=== PATIENT | male | born 1965 | race Caucasian/White ===

== ENCOUNTER 2023-02-20 14:36 | Outpatient (OUT) | payer OTHER, SELFPAY ==
--- NOTE | 2023-02-20 14:43 | XR_ITS ---
[address] [address] Patient Name: DONNY PYLE MRN: [id number] date: 1965 Sex: M Assigned Patient Location: RAD Current Patient Location: [facility] Accession/Order Number: [id number] Exam Date: 02/20/2023 14:50 Report Date: 02/20/2023 17:54 At the request of: ANIKET SANTIAGO Procedure: XR shoulder LT min 2V PROCEDURE: XR shoulder LT min 2V COMPARISON: None. HISTORY: Pain in left shoulder M25.512 FINDINGS: BONES:No acute fracture or dislocation. Minimal proliferative joint osteoarthropathy. The glenohumeral joint is intact SOFT TISSUES:Negative. No visible soft tissue swelling. EFFUSION:None visible. OTHER: Negative. IMPRESSION: Minimal acromioclavicular joint osteoarthritis Electronically authenticated by: BIJAN MEDINA Date: 02/20/2023 17:54
== END 2023-02-20 14:37 ==
LOC: RAD 14:39
PROVIDERS: Family Provider Family Medicine; PCP Nurse Practitioner Family; Visit Provider Nurse Practitioner Family
DX: M19.012 Primary osteoarthritis, left shoulder (principal); M25.512 Pain in left shoulder
CPT/HCPCS: 73030

== ENCOUNTER 2023-03-13 15:15 | Outpatient (RCR) | payer OTHER, SELFPAY | END 2023-04-02 15:35 | disposition home or self-care (01) | LOC: PT 15:15 | PROVIDERS: Family Provider Family Medicine; PCP Nurse Practitioner Family; Visit Provider Nurse Practitioner Family | DX: M25.512 Pain in left shoulder (principal) | CPT/HCPCS: 97110; 97140; 97162 ==

== ENCOUNTER 2024-10-02 20:55 | Emergency (ER) | payer SELFPAY ==
[2024-10-02 20:58] VITALS: BP 173/95; PULSE 51; TEMP 36.6; O2SAT 98; BMI 61.1
--- NOTE | 2024-10-02 21:19 | ED_ITS ---
HPI HPI - General Adult General Chief complaint: Back Pain/Injury Stated complaint: Flank Pain Time Seen by Provider: 10/02/24 20:59 Source: patient Mode of arrival: walk-in Limitations: no limitations History of Present Illness HPI narrative: This 59-year-old male who does not have a history of kidney stones presents for evaluation of right low back pain that radiates into his right inguinal area. It started approximately 3 hours prior to arrival. He took some ibuprofen without significant improvement. He denies any chest pain or shortness of breath. He denies any dizziness. He is nauseated but has not vomited. He states he is urinating but very little is coming out. He denies any blood in his urine or dark-colored urine. Related Data Home Medications ?Medication ?Instructions ?Recorded ?Confirmed meloxicam 15 mg tablet mg 10/02/24 Allergies Allergy/AdvReac Type Severity Reaction Status Date / Time No Known Drug Allergies Allergy Verified 10/02/24 21:02 Opioid HPI Opioid Management Most Recent Opioid Data: Last ED Pain Assessment 10/02/24 21:13 Review of Systems ROS Status of ROS 10 or more systems reviewed and unremark able except as noted in history and below PFSH PFSH Social History Little interest or pleasure in doing things: not at all Feeling down, depressed, or hopeless: not at all Exam Narrative Exam Narrative: Vital signs and Nursing Notes reviewed: Patient is afebrile, he is bradycardic with a pulse of 51 and blood pressure is elevated at 173/95, he is not hypoxic with pulse ox of 98% on room air General: Awake, alert, oriented, uncomfortable appearing adult male, no respiratory distress, no active vomiting HEENT: Normocephalic atraumatic, mucous membranes are moist and pink, eyes are clear, normal conjunctiva, vision is grossly intact Chest: Lungs are clear to auscultation with good air entry, there is no wheezing rhonchi or rales appreciated no accessory muscle use, patient is speaking in complete sentences-no chest wall tenderness to palpation CVS: Regular rate and rhythm S1-S2, no murmurs rubs or gallops, pulses are brisk and equal bilaterally ABD: Soft, nondistended, tenderness in the distribution of the right ureter, there is no McBurney's tenderness, negative Lucas's sign, no rebound guarding or rigidity, bowel sounds are normal, no pulsatile masses appreciated Musc: Tenderness to the right lateral lumbar region, mild abdominal tenderness along the distribution of the right ureter Extremities: Moving all extremities, no lower extremity tenderness or swelling noted, negative Homans' sign, pulses are brisk and equal bilaterally Skin: Normal in appearance without rash,pallor, petechiae or purpura Neuro: No focal deficits Constitutional Vital Signs, click to edit/add: Last Vital Signs Temp 97.8 F 10/02/24 20:58 Pulse 55 L 10/02/24 23:08 Resp 16 10/02/24 23:08 BP 156/84 H 10/02/24 23:08 Pulse Ox 98 10/02/24 23:08 O2 Del Method Room Air 10/02/24 20:58 Course Vital Signs Vital signs: Vital Signs Temperature 97.8 F 10/02/24 20:58 Pulse Rate 51 L 10/02/24 20:58 Respiratory Rate 20 10/02/24 20:58 Blood Pressure 173/95 H 10/02/24 20:58 Pulse Oximetry 98 10/02/24 20:58 Oxygen Delivery Method Room Air 10/02/24 20:58 Temperature 97.8 F 10/02/24 20:58 Pulse Rate 55 L 10/02/24 23:08 Respiratory Rate 16 10/02/24 23:08 Blood Pressure 156/84 H 10/02/24 23:08 Pulse Oximetry 98 10/02/24 23:08 Oxygen Delivery Method Room Air 10/02/24 20:58 Medical Decision Making MDM Narrative Medical decision making narrative: This 59-year-old male is brought to the emergency department by his for evaluation of flank pain that started approximately 3 hours prior to arrival. It was associated with nausea but no vomiting. He states he has been having trouble urinating. He had not had any fever. Denies any chest pain or shortness of breath. He was tender in the right lower flank and along the distribution of the right ureter. An IV was placed and he was medicated with IV fluids, Zofran and Toradol with clinical improvement in his pain. He has a mildly elevated white count of 14. He has a stable hemoglobin. Electrolytes are normal with the exception of a mildly elevated creatinine at 1.59. Urine is negative for infection but positive for large blood. Noncontrast CT scan of the abdomen pelvis shows a 6 x 4 x 3 mm kidney stone in the left UVJ with mild hydronephrosis and perinephric stranding. Prior to being discharged he was medicated with a dose of oral Percocet but then called out complaining that his pain had become severe again and was given a dose of IV Dilaudid. He will be referred to outpatient urology and discharged home with prescription for Percocet, Flomax and Zofran. He is encouraged to drink plenty of fluids and return to the emergency department for worsening symptoms or any concerns. Medical Records Medical records narrative: [place] [address] CT Scan Report Signed Patient: DONNY PYLE MR#: [id number] : 1965 Acct:[id number] Age/Sex: 59 / M ADM Date: 10/02/24 Loc: ER Attending Dr: Ordering Physician: Mercedes Mcconnell Date of Service: 10/02/24 Procedure(s): CT abdomen pelvis wo con Accession Number(s): [id number] cc: ANIKET SANTIAGO ~ The [address] [address] Patient Name: DONNY PYLE MRN: [id number] date: 1965 Sex: M Assigned Patient Location: ER Current Patient Location: ED.MAIN Accession/Order Number: [id number] Exam Date: 10/02/2024 21:34 Report Date: 10/02/2024 22:25 At the request of: MERCEDES MCCONNELL Procedure: CT abdomen pelvis wo con EXAMINATION: CT abdomen pelvis wo con HISTORY: rt flank pain COMPARISON: No relevant comparison available. TECHNIQUE: Axial, Coronal, and Sagittal images were obtained without and/or with IV contrast as indicated by examination type. Dose reduction techniques were achieved by using automated exposure control and/or adjustment of mA and/or kV according to patient size and/or use of iterative reconstruction technique. FINDINGS: LUNG BASES: No visible pulmonary or pleural disease. LIVER: No enlargement, atrophy, suspicious density, or significant focal lesion. BILIARY: No dilatation or calcification. PANCREAS: No lesion, fluid collection, or abnormal duct dilatation. SPLEEN: No enlargement or focal lesion. ADRENALS: No mass or enlargement. KIDNEYS: Mild right hydronephrosis and hydroureter with prominent perinephric stranding/edema. 6 x 4 x 3 mm stone within distal right ureter approximately 3 cm from the ureterovesical junction. Small 2 mm nonobstructing stone within right kidney. Unremarkable left kidney and ureter. BOWEL/MESENTERY: Mild circumferential wall thickening of descending and sigmoid colon; inflammatory changes versus secondary to lack of distention. AORTA/VASCULAR: No aneurysm or dissection. RETROPERITONEUM: No mass or adenopathy. LYMPH NODES: No adenopathy. URINARY BLADDER: No visible focal wall thickening, lesion, or calculus. PELVIC ORGANS: No visible mass. Pelvic organs appropriate for patient age. ABDOMINAL WALL: No mass or hernia. BONES: Multilevel moderate-marked degenerative disc disease. L5 bilateral pars interarticularis defects without anterolisthesis. OTHER: Negative. CT/CT abdomen pelvis wo con IMPRESSION: 1. Mild right hydronephrosis and hydroureter secondary to a partially obstructing stone within the distal ureter. Prominent perinephric edema suggest recent high-grade obstruction and hydronephrosis. 2. Additional nonobstructing small stone within right kidney. 3. Wall thickening of descending and sigmoid colon likely due to lack of distention. Mild colitis cannot be excluded. Electronically authenticated by: STAN PAZ Date: 10/02/2024 22:25 Lab Data Labs: Lab Results 10/02/24 10/02/24 Range/Units 21:06 23:00 WBC 14.0 H (4.0-11.0) 10^3/uL RBC 4.71 (4.70-6.10) 10^6/uL Hgb 15.0 (14.0-18.0) g/dL Hct 44.5 (42.0-54.0) % MCV 94.5 H (80.0-94.0) fL MCH 31.8 (25.9-34.0) pg MCHC 33.7 (29.9-35.2) g/dL RDW 12.3 (11.0-15.0) % Plt Count 310 (150-450) 10^3/uL MPV 9.9 (9.5-13.5) fL Neut % (Auto) 75.9 H (43.0-75.0) % Lymph % (Auto) 16.8 L (20.5-60.0) % [place] % (Auto) 5.6 (1.7-12.0) % Eos % (Auto) 1.0 (0.9-7.0) % Baso % (Auto) 0.4 (0.2-2.0) % Neut # (Auto) 10.7 H (1.4-6.5) 10^3/uL Lymph # (Auto) 2.4 (1.2-3.8) 10^3/uL [place] # (Auto) 0.8 (0.3-0.8) 10^3/uL Eos # (Auto) 0.1 (0.0-0.7) 10^3/uL Baso # (Auto) 0.1 (0.0-0.1) 10^3/uL Abs Immat Gran (auto) 0.04 H (0.00-0.03) 10^3/uL Imm/Tot Granulo (auto) 0.3 (0.0-0.5) % Sodium 143 (136-145) mmol/L Potassium 4.4 (3.5-5.1) mmol/L Chloride 107 (98-107) mmol/L Carbon Dioxide 30.6 (21.0-32.0) mmol/L Anion Gap 9.8 BUN 18.0 (7.0-18.0) mg/dL Creatinine 1.59 H (0.70-1.30) mg/dL Est GFR ( Amer) 54 L (>=60 mL/min/1.73m^2) Est GFR (Non-Af Amer) 45 L (>=60 mL/min/1.73m^2) BUN/Creatinine Ratio 11.3 Glucose 120 H (74-106) mg/dL Calcium 9.4 (8.5-10.1) mg/dL Total Bilirubin 0.5 (0.2-1.0) mg/dL AST 14 L (15-37) U/L ALT 17 (16-63) U/L Alkaline Phosphatase 72 (46-116) U/L Total Protein 7.1 (6.4-8.2) g/dL Albumin 4.0 (3.4-5.0) g/dL Globulin 3.1 g/dL Albumin/Globulin Ratio 1.3 Urine Color Dk yellow (YELLOW) Urine Clarity Cloudy A (CLEAR) Urine pH 6.0 (5.0-9.0) Ur Specific [place] 1.025 (1.005-1.025) Urine Protein Trace (NEG/TRACE) mg/dL Urine Glucose (UA) Negative (NEGATIVE) mg/dL Urine Ketones Negative (NEGATIVE) mg/dL Urine Occult Blood Large A (NEGATIVE) Urine Nitrite Negative (NEGATIVE) Urine Bilirubin Negative (NEGATIVE) Urine Urobilinogen 0.2 (0.2-1.0) EU/dL Ur Leukocyte Esterase Negative (NEGATIVE) Discharge Plan Discharge Chief Complaint: Back Pain/Injury Clinical Impression: Renal colic, Hydronephrosis due to obstruction of ureter Patient Disposition: Home, Self-Care Time of Disposition Decision: 23:45 Condition: Good Prescriptions / Home Meds: No Action meloxicam 15 mg tablet Print Language: Romanian Instructions: Renal Colic (ED), Hydronephrosis (ED) Referrals: Lisa Starks MD [Physician] - 1 week ANIKET SANTIAGO [Primary Care Provider] - 1 week
[2024-10-02] MEDS: ONDANSETRON PF 4 MG/2 ML VIAL IV (21:33)
[2024-10-02] MEDS: 0.9 % SODIUM CHLORIDE 1,000 ML 1000 ML IV (21:33)
[2024-10-02] MEDS: KETOROLAC TROMETHAMINE 30 MG/ML VIAL IVP (21:33)
[2024-10-02 21:35] LABS: Basophils Absolute Auto 0.1 10^3/uL (0.0-0.1); Basophils Percent Auto 0.4 % (0.2-2.0); Eosinophils Absolute Auto 0.1 10^3/uL (0.0-0.7); Hematocrit 44.5 % (42.0-54.0); Immature Granulocytes Abs Auto 0.04 10^3/uL (0.00-0.03); Immature Granulocytes Pct Auto 0.3 % (0.0-0.5); Lymphocytes Absolute Auto 2.4 10^3/uL (1.2-3.8); Lymphocytes Percent Auto 16.8 % (20.5-60.0); Mean Corpuscular HGB Conc 33.7 g/dL (29.9-35.2); Mean Corpuscular Hemoglobin 31.8 pg (25.9-34.0); Mean Corpuscular Volume 94.5 fL (80.0-94.0); Mean Platelet Volume 9.9 fL (9.5-13.5); Monocytes Absolute Auto 0.8 10^3/uL (0.3-0.8); Monocytes Percent Auto 5.6 % (1.7-12.0); Neutrophils Absolute Auto 10.7 10^3/uL (1.4-6.5); Neutrophils Percent Auto 75.9 % (43.0-75.0); Platelet Count 310 10^3/uL (150-450); Red Blood Count 4.71 10^6/uL (4.70-6.10); Red Cell Distribution Width 12.3 % (11.0-15.0)
--- NOTE | 2024-10-02 21:38 | CT_ITS ---
[address] [address] Patient Name: DONNY PYLE MRN: [id number] date: 1965 Sex: M Assigned Patient Location: ER Current Patient Location: .MAIN Accession/Order Number: [id number] Exam Date: 10/02/2024 21:34 Report Date: 10/02/2024 22:25 At the request of: BISI MARKER Procedure: CT abdomen pelvis wo con EXAMINATION: CT abdomen pelvis wo con HISTORY: rt flank pain COMPARISON: No relevant comparison available. TECHNIQUE: Axial, Coronal, and Sagittal images were obtained without and/or with IV contrast as indicated by examination type. Dose reduction techniques were achieved by using automated exposure control and/or adjustment of mA and/or kV according to patient size and/or use of iterative reconstruction technique. FINDINGS: LUNG BASES: No visible pulmonary or pleural disease. LIVER: No enlargement, atrophy, suspicious density, or significant focal lesion. BILIARY: No dilatation or calcification. PANCREAS: No lesion, fluid collection, or abnormal duct dilatation. SPLEEN: No enlargement or focal lesion. ADRENALS: No mass or enlargement. KIDNEYS: Mild right hydronephrosis and hydroureter with prominent perinephric stranding/edema. 6 x 4 x 3 mm stone within distal right ureter approximately 3 cm from the ureterovesical junction. Small 2 mm nonobstructing stone within right kidney. Unremarkable left kidney and ureter. BOWEL/MESENTERY: Mild circumferential wall thickening of descending and sigmoid colon; inflammatory changes versus secondary to lack of distention. AORTA/VASCULAR: No aneurysm or dissection. RETROPERITONEUM: No mass or adenopathy. LYMPH NODES: No adenopathy. URINARY BLADDER: No visible focal wall thickening, lesion, or calculus. PELVIC ORGANS: No visible mass. Pelvic organs appropriate for patient age. ABDOMINAL WALL: No mass or hernia. BONES: Multilevel moderate-marked degenerative disc disease. L5 bilateral pars interarticularis defects without anterolisthesis. OTHER: Negative. CT/CT abdomen pelvis wo con IMPRESSION: 1. Mild right hydronephrosis and hydroureter secondary to a partially obstructing stone within the distal ureter. Prominent perinephric edema suggest recent high-grade obstruction and hydronephrosis. 2. Additional nonobstructing small stone within right kidney. 3. Wall thickening of descending and sigmoid colon likely due to lack of distention. Mild colitis cannot be excluded. Electronically authenticated by: STAN PAZ Date: 10/02/2024 22:25
[2024-10-02 21:49] LABS: Alanine Aminotransferase 17 U/L (16-63); Albumin Globulin Ratio 1.3; Alkaline Phosphatase 72 U/L (46-116); Anion Gap 9.8; Aspartate Amino Transferase 14 U/L (15-37); BUN Creatinine Ratio 11.3; Bilirubin Total 0.5 mg/dL (0.2-1.0); Calcium 9.4 mg/dL (8.5-10.1); Carbon Dioxide 30.6 mmol/L (21.0-32.0); Chloride 107 mmol/L (98-107); Estimated GFR (African America 54 (>=60 mL/min/1.73m^2); Estimated GFR (Non-African Ame 45 (>=60 mL/min/1.73m^2); Globulin 3.1 g/dL; Glucose 120 mg/dL (74-106); Potassium 4.4 mmol/L (3.5-5.1); Sodium 143 mmol/L (136-145); Total Protein 7.1 g/dL (6.4-8.2)
[2024-10-02] MEDS: OXYCODONE HCL/ACETAMINOPHEN 5MG/325MG 2 TAB PO (23:00)
[2024-10-02] MEDS: TAMSULOSIN HCL 0.4 MG CAPSULE PO (23:00)
[2024-10-02] MEDS: OXYCODONE HCL/ACETAMINOPHEN 5MG/325MG 1 TAB PO (23:00)
[2024-10-02 23:08] VITALS: BP 156/84; PULSE 55; O2SAT 98
[2024-10-02 23:29] LABS: Bilirubin Urine NEGATIVE (NEGATIVE); Blood Urine LARGE (NEGATIVE); Clarity Urine CLOUDY (CLEAR); Glucose Urine UA NEGATIVE (NEGATIVE); Ketones Urine NEGATIVE (NEGATIVE); Leukocyte Esterase Urine NEGATIVE (NEGATIVE); Nitrite Urine NEGATIVE (NEGATIVE); Protein Urine TRACE mg/dL (NEG/TRACE); Specific Gravity Urine 1.025 (1.005-1.025); Urobilinogen Urine 0.2 EU/dL (0.2-1.0)
[2024-10-02 23:33] LABS: Color Urine DK YELLOW (YELLOW)
[2024-10-02 23:43] LABS: Mucus Urine SMALL (NONE SEEN); RBC Urine >100 #/HPF (0-2); WBC Urine 0-2 #/HPF (NONE SEEN)
[2024-10-02 23:45] LABS: Bacteria Urine MODERATE #/HPF (NONE SEEN); Cast Seen? NONE SEEN #/LPF (NONE SEEN); Crystals Seen? None Seen #/HPF (None Seen); Squamous Epithelial Cell Urine NONE SEEN #/LPF (NONE/RARE); Urine Culture Indicated YES
[2024-10-03] MEDS: HYDROMORPHONE HCL 1 MG/ML CARTRIDGE IV
== END 2024-10-03 00:19 | disposition home or self-care (01) ==
PROVIDERS: Emergency Provider Emergency Medicine; Family Provider Family Medicine; PCP Nurse Practitioner Family
DX: N13.2 Hydronephrosis with renal and ureteral calculous obstruction (principal)
CPT/HCPCS: 36415; 74176; 80053; 81001; 85025; 87086; 96374; 96375; 99284; J1171; J1885; J2405

== ENCOUNTER 2024-10-05 16:29 | Emergency (ER) | payer SELFPAY ==
[2024-10-05 16:38] VITALS: BP 167/88; PULSE 75; TEMP 36.6; O2SAT 97; BMI 27.7
--- OUTSIDE RECORDS SUMMARY | 2024-10-05 16:38 | XMS_ITS | CCD ---
Author Organization [place] [facility], [facility] Care Team Providers Care Statistical Technician Name Role Phone TUSHAR VERAS Unavailable Unavailable TUSHAR VERAS Unavailable Unavailable FAVIO PRABHAKAR~[phone] UNKNOWN Unavailable Unavailable John Hasjonh Unavailable Unavailable Borte, Shannon Unavailable Unavailable Heladio Castaneda Unavailable Unavailable Borte, Shannon Unavailable Unavailable Borte, Shannon Unavailable Unavailable Problems Problem Classification Problem Date Documented Da te Episodic/Chronic Other connective tissue disease (1 source) Muscle weakness (generalized); Translations: [Muscle weakness (generalized)] Onset: 07-04-2017 Episodic Results Test Name Value Interpretation Reference Range Facility [facility] 08-08-2017 CNCO Letter Palma khanna MDOphthalmology[address] [place] [id number]: [phone] 2016[facility] [place] [address] [address]CLK#:[id number] Mr. Lara:We are sorry you missed your appointment on 08/08/17.Please call for a follow-up appointment at [phone] or [phone],extension [phone], to reschedule at your earliest convenience.Sincerely,Misa Aguilar M.D.SHANITA/fatoumata Normal [facility] CNOVon 06-20-2017 CNOV Office Visit (NECVS8) NEERAJ LARA ([id number]) 1965 MDate Time Provider Andjeaoohv09/13/17 8:40 AM TUSHAR VERAS NECVS8 During your visit today, we recorded the following information about you: Pulse Respiration Blood pressure Weight 48/minute 17/minute 119/69 106.6 kg Height 1.981 Lee Veras MD 07/01/2017 11:31 AM SignedCEREBROVASCULAR CENTERInitial VisitConsultation is requested by: SELFPCP: Favio Prabhakar, DO[address] [place] [address]Nsedw: [phone]: [phone] Marco is a 52 year old right handed male who presents for evaluationof dizzinessHISTORYDate of last stroke event (enter as much detail as possible; if not known,provide estimate): UnknownNo history of HTN, HPL, smoking.He has history of headaches, always a dull ache.[facility].06/09/17 he was at work, he was standing (doing an arm on a piece of furniture).Suddently he had room spinning, diaphoretic, nausea wo vomiting, eye -everything looked hazy difficulty focus. He felt like he was going to pass out.He felt really uneasy, didn't feel right at all. No difficulty speaking. Nofocal weakness. No difficulty walking.[facility] and he went to he ED.CT brain, MRI, MRA. He was told ANDquot;everything came out fine.ANDquot; He alsohad LP done.Seen by Dr. Fabian, Neurology - was told normal MRI brain, she's thinking PD,ALS.He was given aspirin while in the hospital.2 wks prior to event. He was working in the [employer] w/ son. He was kneeling downhe went to get up and fell over to his side. He did not hit his head. Ht wasquick. [place] whoozy. No loss of consciousness. Afterwards he felt imbalanced. Hewould take step he would not be stable.He has chronic history of headache. Worse in last 5 years, more frequent.His neck always hurt, his back. However nothing new.He is always achy.He's been on Aleve ibuprofenHe has difficulty getting arms up.This has been gradually worsening. Elbows hurting. When he is working, painshuts up in his arms and elbows. When he tries to grab something he gets painon his hands radiating up.He's lost a lot of muscle mass. He gets really bad charley horse, calves backof the legs, hamstring out of the blue. He gets muscle twitching.Takes magnesium to help with it.He would rub his numb.Dr. Cartagena - EMG/NC about 2 years ago. He was told he was normal.?raspy voice or quiet voice.Chewing stakes his jaw hurts.When he eats he feels like he is getting caught in his throat.High school he was diagnosed w/ heart murmur. He feels very fluttery.Since then he's dizzy,Feels drunk when he walks,Vision is blurry.Sometimes slower getting sentences out.He has gone back to work, but he is extremely tired. Naps at break time.He comes with PT/OT forms only. No DC SummaryPAST MEDICAL HISTORYChronic back pain and headaches.PAST SURGICAL HISTORYNoneSOCIAL HISTORYSocial History Marital status: Spouse name: Years of education: Number of children:Social History Main Topics Smoking status: Never SmokerFAMILY HISTORYHis mother and maternal GM has had multiple strokes.CURRENT MEDICATIONCurrent Outpatient Prescriptions:Ibuprofen 200 mg cap Take by mouth as needed.naproxen sodium (ALEVE) 220 mg tablet Take 220 mg by mouth as needed.Magnesium 250 mg tab Take 250 mg by mouth once daily.No current facility-administered medications for this visit.REVIEW OF SYSTEMS:ALLERGIESNo Known AllergiesReview of SystemsConstitutional Positive for FatigueEyes Positive for Change in vison not corrected by glasses (blurry)Hent: NegativeCardiovascular (occasional palpitations- feels fluttering)Respiratory (stops breathing in sleep per )GI: NegativeGU: NegativeEndocrine: NegativeMusculoskeletal: NegativeIntegumentary: NegativeHeme/Lymph: NegativeAllergy/Immunologic: NegativeNeurologic (dizziness) Positive for Headache and Slurred Speech (occasional drooling) Negative for Memory Problems, Numbness/Tingling, Weakness, Double Vision andTrouble SwallowingPsychiatric: NegativePatient's Review of Systems has been reviewed with the patient and updated asappropriate.I reviewed the ROS obtained and documented by the nurse. I examined the patientand evaluated all available films and pertinent documents.PHYSICAL EXAMINATIONVital Signs BP 119/69 Pulse 48 Resp 17 Ht 6' 6ANDquot; (1.98m) Wt 235 lb(106.6kg) BMI 27.16 kg/(m2).GENERAL: No acute distressNECK: No carotid bruits, suppleCARDIOVASCULAR: RRR, normal S1, S2 auscultated, no murmur presentRESPIRATORY: Normal respiratory effort. Clear to auscultation without rhonchi,rales, wheezing.EXTREMITIES: Limited range of motion of th UE due to pain. Red and swollen DIPand PIP joints of bilateral handsNEURO:MENTAL STATUS: Alert, oriented to person, place and time and Speech fluent andappropriateCRANIAL NERVES: PERRLA, Visual pearce intact to confrontation, Extraocularmovements intact, Facial sensation intact, Face symmetric, No facial droop orptosis, No dysarthria and Shoulder shrug intact and symmetricMOTOR: No drift and Normal toneMOTOR STRENGTH: Upper and lower extremity 5/5 except 4 to 4+ in bilaterally UElimited by pain in the elbows and hip flex 4/5.otherwise 4+/5REFLEXES: +1 UE, +2 LE bilaterallySENSATION: normal PP and temp, and LT. Decreased vib in distal LE.COORDINATION: Finger-to- nose-finger intact bilaterally and Cuny-oz-pozq intactbilaterally nlGAIT: Normal-based nlREVIEW OF MEDICAL RECORDSLABSYonny Mack Records:06/11/17:Lipid Panel: TC 170, TG 183, HDL 33, LDL (direct) 100TSH 3.96Bun/Cr 15/1.0, Na 140, K 3.8, Cl 109, CO2 24, Ca 9.2, Glucose 97WBC 7.6, RBC 4.6, Hgb 14.6, Hct 43.0, Plt 269CSF - Protein 45, Glucose 59, RBC 0, WBC Lyme Ab IgG neg, IgM neg IgG Index 0.6 Myeline Basic Protein 2.0 (H, 0-1.2) Oligoclonal band - negative CSF/Serum Alb Index 6 (N, 0-8) Angiotension Converting Enzyme 1.7 (N, 0-2.5) VDRL negSerum: Anti chromatin Ab neg Antiscleroderma 70 Ab neg Ds DNA Ab neg Bing-1 Ab neg Anti-centro B Ab neg TRAFFIC SIGNAL MECHANIC Ab 1.0 (H, 0-0.9) Anti SSB and Anti SSA neg Conklin Ab neg DONTE direct positive Hep A IgM, Hep B Core IgM, Hep Bs Ag Neg, HEp C Ab negParaneoplastic Profile: Anti-Hu Ab, -Yo Ab, -Ri Ab negativeEchocardiogram 06/09/17- LVEF calculated by biplane 62% with mild concentric hypertrophy and normaldiastolic function- no intraatrial shunt by Doppler or bubbly study-Trace tricuspid regurgitation. RVSP 24 mmHg which is normalMRI brain wwo contrast 06/10/17Small nonspecific subcortical cerebral white matter foci. Otherwise negativeMRI of the brain.MRA head and neck 06/10/17- the common carotid arteries and carotid bifurcations are widely patentbilaterally. The vertebral arteries are codominant and patent. No significantstenosis in the extracranial carotid vascula true.MRI C-spine 06/10/17C5-C6 extruded disc in the right subarticular zone effacing the thecal sacright side of the midline and compromising the C6 nerve root foramen.C6-C7 there is a small central bulging disc noted without compromise of theposterior normal structures.There is no evidence of central canal stenosis . NO disc herniation seen fromC2 through C4. No disc herniation at C7.Cervical cord normal in caliber and signal. Paraspinal and prevertebral softtissues unremarkable.IMPRESSIONAcute onset vertigo with unclear etiology, but suspicious for TIA/stroke event.MRI and MRA reportedly negative for acute ischemic stroke and nohemodynamically significant stenosis.2 years of joint swelling and muscles aches and pain that is starting to limitis UE mobilityIntermittent palpitation that is more frequent.Family history of son diagnosed w/ pAF at 25 years old.RECOMMENDATION- at this time would restart him on aspirin 81mg daily.- repeat EMG/NC to assess for motor neuro disease, and radiculopathy causingpain in his arms, decreased range of motion, and also loss of muscle mass.- Obtain Spine imaging and MRI brain and MRA done at [facility]. Will dospine imaging C and T spine if not done yet- Agree Rheum Consult regarding joint swelling. Will try to assist in gettinghim earlier appointment.Discussion, counseling, coordination of care ANDgt; 50% of 45 minutes.Questions asked/ answered. Follow-up with results/ adherence to plan/ continuededucation.Audelia Veras MDHillsdale Hospital 2016Tushar Veras MD 06/20/2017 10:07 AM SignedIMPRESSIONAcute onset vertigo with unclear etiology, but suspicious for TIA/stroke event2 years of joint swelling and muscles aches and pain that is starting to limitis UE mobilityIntermittent palpitation that is more frequent.Family history of son diagnosed w/ pAF at 25 years old.RECOMMENDATION- at this time would restart him on aspirin 81mg daily.- will obtain records from [facility] of workup done recently- repeat EMG/NG. Will do spine imaging C and T spine if not done yet- Agree Rheum Consult regarding joint swelling. Will try to assist in gettinghim earlier appointment.[place], Vascular [phone] 201610:03 AM Stroke Signs and Symptoms:*Stroke is a medical emergency. Know these warning signs of stroke:Sudden numbness or weakness of the face, arm or leg, especially on one side ofthe bodySudden confusion, trouble speaking, or understandingSudden trouble seeing in one eye, or both eyesSudden trouble walking, dizziness, loss of balance, or coordinationSudden severe headache with no known cause*If you, or someone with you, has one or more of these signs, don't delay!Immediately call 911, or the emergency medical services (EMS) number so anambulance can be sent for you. Also, check the time so that you will know whenthe symptoms first appeared. It is very important to take immediate action,every second counts. 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 NAPROXEN SODIUM 220 MG TABLET Take 220 mg by mouth as neede* MAGNESIUM 250 MG TABLET Take 250 mg by mouth once brissa*Problem List As Of Date: 06/20/2017(None) Other instructions from your clinician: IMPRESSION Acute onset vertigo with unclear etiology, but suspicious for TIA/stroke event 2 years of joint swelling and muscles aches and pain that is starting to limit is UE mobility Intermittent palpitation that is more frequent. Family history of son diagnosed w/ pAF at 25 years old. RECOMMENDATION - at this time would restart him on aspirin 81mg daily. - will obtain records from [facility] of workup done recently - repeat EMG/NG. Will do spine imaging C and T spine if not done yet - Agree Rheum Consult regarding joint swelling. Will try to assist in getting him earlier appointment. SIGNATURE Tushar Veras MD Staff, Vascular Neurology [phone] June 20, 2017 10:03 AM ======== Stroke Signs and Symptoms: *Stroke is a medical emergency. Know these warning signs of stroke: Sudden numbness or weakness of the face, arm or leg, especially on one side of the body Sudden confusion, trouble speaking, or understanding Sudden trouble seeing in one eye, or both eyes Sudden trouble walking, dizziness, loss of balance, or coordination Sudden severe headache with no known cause *If you, or someone with you, has one or more of these signs, don't delay! Immediately call 911, or the emergency medical services (EMS) number so an ambulance can be sent for you. Also, check the time so that you will know when the symptoms first appeared. It is very important to take immediate action, every second counts. Medical treatment may be available if action is taken early enough. Status:Closed by TUSHAR VERAS MD on 07/01/17 Normal [facility] PROGRESSon 06-20-2017 PROGRESS HNO ID: [id number] thor: Tushar Merino: (none)Author Type: PhysicianType: Progress NotesFiled: 07/01/2017 11:31 AMNote Text:CEREBROVASCULAR CENTERInitial VisitConsultation is requested by: SELFPCP: Favio Prabhakar, DO[address] [place] [address]Ohccc: [phone]: [phone] Marco is a 52 year old right handed male who presents forevaluation of dizzinessHISTORYDate of last stroke event (enter as much detail as possible; if not known,provide estimate): UnknownNo history of HTN, HPL, smoking.He has history of headaches, always a dull ache.[facility].06/09/17 he was at work, he was standing (doing an arm on a piece offurniture). Suddently he had room spinning, diaphoretic, nausea wovomiting, eye - everything looked hazy difficulty focus. He felt like hewas going to pass out. He felt really uneasy, didn't feel right at all. Nodifficulty speaking. No focal weakness. No difficulty walking.[facility] to tell him something was wrong and he went to [facility].CT brain, MRI, MRA. He was told everything came out fine. He also had LPdone.Seen by Dr. Fabian, Neurology - was told normal MRI brain, she's thinkingPD, ALS.He was given aspirin while in the hospital.2 wks prior to event. 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 He was kneelingdown he went to get up and fell over to his side. He did not hit his head.Ht was quick. [place] whoozy. No loss of consciousness. Afterwards he feltimbalanced. He would take step he would not be stable.He has chronic history of headache. Worse in last 5 years, more frequent.His neck always hurt, his back. However nothing new.He is always achy.He's been on Aleve ibuprofenHe has difficulty getting arms up.This has been gradually worsening. Elbows hurting. When he is working,pain shuts up in his arms and elbows. When he tries to grab something hegets pain on his hands radiating up.He's lost a lot of muscle mass. He gets really bad charley horse, calvesback of the legs, hamstring out of the blue. He gets muscle twitching.Takes magnesium to help with it.He would rub his numb.Dr. Cartagena - EMG/NC about 2 years ago. He was told he was normal.?raspy voice or quiet voice.Chewing stakes his jaw hurts.When he eats he feels like he is getting caught in his throat.High school he was diagnosed w/ heart murmur. He feels very fluttery.Since then he's dizzy,Feels drunk when he walks,Vision is blurry.Sometimes slower getting sentences out.He has gone back to work, but he is extremely tired. Naps at break time.He comes with PT/OT forms only. No DC SummaryPAST MEDICAL HISTORYChronic back pain and headaches.PAST SURGICAL HISTORYNoneSOCIAL HISTORYSocial History Marital status: Spouse name: Years of education: Number of children:Social History Main Topics Smoking status: Never SmokerFAMILY HISTORYHis mother and maternal GM has had multiple strokes.CURRENT MEDICATIONCurrent Outpatient Prescriptions:Ibuprofen 200 mg cap Take by mouth as needed.naproxen sodium (ALEVE) 220 mg tablet Take 220 mg by mouth as needed.Magnesium 250 mg tab Take 250 mg by mouth once daily.No current facility-administered medications for this visit.REVIEW OF SYSTEMS:ALLERGIESNo Known AllergiesReview of SystemsConstitutional Positive for FatigueEyes Positive for Change in vison not corrected by glasses (blurry)Hent: NegativeCardiovascular (occasional palpitations- feels fluttering)Respiratory (stops breathing in sleep per )GI: NegativeGU: NegativeEndocrine: NegativeMusculoskeletal: NegativeIntegumentary: NegativeHeme/Lymph: NegativeAllergy/Immunologic: NegativeNeurologic (dizziness) Positive for Headache and Slurred Speech (occasional drooling) Negative for Memory Problems, Numbness/Tingling, Weakness, Double Visionand Trouble SwallowingPsychiatric: NegativePatient's Review of Systems has been reviewed with the patient and updatedas appropriate.I reviewed the ROS obtained and documented by the nurse. I examined thepatient and evaluated all available films and pertinent documents.PHYSICAL EXAMINATIONVital Signs BP 119/69 Pulse 48 Resp 17 Ht 6' 6 (1.98m) Wt 235 lb(106.6kg) BMI 27.16 kg/(m2).GENERAL: No acute distressNECK: No carotid bruits, suppleCARDIOVASCULAR: RRR, normal S1, S2 auscultated, no murmur presentRESPIRATORY: Normal respiratory effort. Clear to auscultation withoutrhonchi, rales, wheezing.EXTREMITIES: Limited range of motion of th UE due to pain. Red and swollenDIP and PIP joints of bilateral handsNEURO:MENTAL STATUS: Alert, oriented to person, place and time and Speechfluent and appropriateCRANIAL NERVES: PERRLA, Visual pearce intact to confrontation, Extraocularmovements intact, Facial sensation intact, Face symmetric, No facial droopor ptosis, No dysarthria and Shoulder shrug intact and symmetricMOTOR: No drift and Normal toneMOTOR STRENGTH: Upper and lower extremity 5/5 except 4 to 4+ inbilaterally UE limited by pain in the elbows and hip flex 4/5.otherwise4+/5REFLEXES: +1 UE, +2 LE bilaterallySENSATION: normal PP and temp, and LT. Decreased vib in distal LE.COORDINATION: Finger-to- nose-finger intact bilaterally and Jnrh-nf-fclssnoihn bilaterally nlGAIT: Normal-based nlREVIEW OF MEDICAL RECORDSLECOM HEALTH - CORRY MEMORIAL HOSPITALMarkmelany Mack Records:06/11/17:Lipid Panel: TC 170, TG 183, HDL 33, LDL (direct) 100TSH 3.96Bun/Cr 15/1.0, Na 140, K 3.8, Cl 109, CO2 24, Ca 9.2, Glucose 97WBC 7.6, RBC 4.6, Hgb 14.6, Hct 43.0, Plt 269CSF - Protein 45, Glucose 59, RBC 0, WBC Lyme Ab IgG neg, IgM neg IgG Index 0.6 Myeline Basic Protein 2.0 (H, 0-1.2) Oligoclonal band - negative CSF/Serum Alb Index 6 (N, 0-8) Angiotension Converting Enzyme 1.7 (N, 0-2.5) VDRL negSerum: Anti chromatin Ab neg Antiscleroderma 70 Ab neg Ds DNA Ab neg Bing-1 Ab neg Anti-centro B Ab neg TRAFFIC SIGNAL MECHANIC Ab 1.0 (H, 0-0.9) Anti SSB and Anti SSA neg Conklin Ab neg DONTE direct positive Hep A IgM, Hep B Core IgM, Hep Bs Ag Neg, HEp C Ab negParaneoplastic Profile: Anti-Hu Ab, -Yo Ab, -Ri Ab negativeEchocardiogram 06/09/17- LVEF calculated by biplane 62% with mild concentric hypertrophy andnormal diastolic function- no intraatrial shunt by Doppler or bubbly study-Trace tricuspid regurgitation. RVSP 24 mmHg which is normalMRI brain wwo contrast 06/10/17Small nonspecific subcortical cerebral white matter foci. Otherwisenegative MRI of the brain.MRA head and neck 06/10/17- the common carotid arteries and carotid bifurcations are widely patentbilaterally. The vertebral arteries are codominant and patent. Nosignificant stenosis in the extracranial carotid vascula true.MRI C-spine 06/10/17C5-C6 extruded disc in the right subarticular zone effacing the thecal sacright side of the midline and compromising the C6 nerve root foramen.C6-C7 there is a small central bulging disc noted without compromise ofthe posterior normal structures.There is no evidence of central canal stenosis . NO disc herniation seenfrom C2 through C4. No disc herniation at C7.Cervical cord normal in caliber and signal. Paraspinal and prevertebralsoft tissues unremarkable.IMPRESSIONAcute onset vertigo with unclear etiology, but suspicious for TIA/strokeevent. MRI and MRA reportedly negative for acute ischemic stroke and nohemodynamically significant stenosis.2 years of joint swelling and muscles aches and pain that is starting tolimit is UE mobilityIntermittent palpitation that is more frequent.Family history of son diagnosed w/ pAF at 25 years old.RECOMMENDATION- at this time would restart him on aspirin 81mg daily.- repeat EMG/NC to assess for motor neuro disease, and radiculopathycausing pain in his arms, decreased range of motion, and also loss ofmuscle mass.- Obtain Spine imaging and MRI brain and MRA done at [facility]. Will dospine imaging C and T spine if not done yet- Agree Rheum Consult regarding joint swelling. Will try to assist ingetting him earlier appointment.Discussion, counseling, coordination of care > 50% of 45 minutes.Questions asked/ answered. Follow-up with results/ adherence to plan/continued education.Osile Veras MDOctober 2016 Normal [facility] Lab [facility] Centercellaneouson 06-18-20 17 Status See Ref Lab Report Normal [facility] Comment on above: Order Comment: multi ple sclerosis panel:-oligoclonal bands-oligoclonal band synthesis-myelin basic protein Performed By: #### 1 [id number] ####[facility] [address] [place] [address] Status See Ref Lab Report Normal [facility] Comment on above: Order Comment: CSF A CE Performed By: #### 1 [id number] ####[place] [address] Status See Ref Lab Report Normal [facility] Comment on above: Order Comment: CSF l yme Performed By: #### 1 [id number] ####[place] [id number] Lab [facility] 06-16-20 Status See Ref Lab Report Normal [facility] Comment on above: Performed By: #### 1 [id number] ####[place] [id number] C Spinal Fluidon 06-13-2017 Spinal Fluid Culture MicrobiologyPROCEDURE: Spinal Fluid Culture [R1]SOURCE: CSF BODY SITE:COLLECTED DATE/TIME: 06/11/2017 10:55 EDT RECEIVED DATE/TIME: 06/11/2017 11:42 EDTSTART DATE/TIME: 06/11/2017 11:42 EDT FREE TEXT SOURCE:Shannon Fabian MD, MD, BernadetteFINAL REPORTSFinal Report [] Verified Date/Time: 06/13/2017 11:01 EDTNo growth at 2 days.STAINSGram Stain Report [] Verified Date/Time: 06/11/2017 14:55 EDTNo WBC's seen. No organisms seen.Performing LocationsR1: This test was performed at: [facility], [address] [place] [address], [address]- , Normal [facility] Comment on above: Performed By: #### 2 [id number], [id number], [id number], [id number] ####[facility] [address] [place] [address] CSF VDRL Scron 06-13-2017 REAGIN AB:PRTHR:PT:CSF:OR D: Non Reactive Invalid Interpretation Code Non Colleen:<1:1 [facility] Comment on above: Result Comment: Perf ormed at: [facility] [address] [id number] MD Wilfredo Gomez Performed By: #### 1 [id number] ####[facility] [address] [place] [address] ED Note-Physicianon 06-13-20 ED Note-Physician Patient: Emili LARA Age: 52 years Sex: Male : 1965 Associated Diagnoses: None Author: Maxwell Turcios MD Basic Information Time seen: Date & time 06/09/17 06:29:00. History source: Patient. Arrival mode: Private vehicle, walking. History limitation: None. Additional information: Chief Complaint from Nursing Triage Note : Chief Complaint 06/09/2017 05:48 EDT Chief Complaint pt sts 4 am was working, works for [employer], felt light headed, dizzy, nauseas, pt sts if he bends over it gets really bad, felt like he was going to pass out, feels worse with positional changes, cardiac workups in past has been negative pt states (Modified) . History of Present Illness The patient presents with dizziness. The onset was 2 weeks ago. The course/duration of symptoms is episodic: with a few episodes. The character of symptoms is off-balance. The degree at onset was moderate. The degree at maximum was moderate. The degree at present is minimal. Risk factors consist of none. Associated symptoms: nausea, dizziness, denies chest pain, denies headache and denies vomiting. Additional history: healthy male. Has chronic arthralgia of his upper extremities related to his line of work. States he does experience headaches frequently and is able to treat with OTC medication. Has been experiencing episodes of dizziness(room spinning) on and off over the past 2 weeks. They have usually passed. This morning symptoms started at work around 4AM and continue. They occur when he turns his head. Also if he bends down and then raises up, they occur. He is sitting on the stretcher and keeping his head still to avoid the dizziness. Does not have a headache at this time. Denies weakness of his extremities but does have his usual joint pains.. Review of Systems Constitutional symptoms: no fever, no chills. ENMT symptoms: no ear pain. Respiratory symptoms: no shortness of breath, no orthopnea. Cardiovascular symptoms: no chest pain. Gastrointestinal symptoms: Nausea, no vomiting. Genitourinary symptoms: no dysuria, no hematuria. Psychiatric symptoms: no anxiety. Additional review of systems information: All other systems reviewed and otherwise negative. Health Status Allergies: Allergic Reactions (Selected)No Known Allergies. Medications: (Selected) Inpatient MedicationsOrderedAntivert 25 mg Tab: 25 mg = 1 tab(s), Tab, Oral, Once, Stop date 06/09/17 6:34:00 EDT, STAT, Start date 06/09/17 6:34:00 EDTAtivan 2 mg/mL Injection: 0.5 mg = 0.25 mL, Injection, IV Push, Once, Stop date 06/09/17 7:00:00 EDT, Routine, Start date 06/09/17 7:00:00 EDTSodium Chloride 0.9% IV Mildred 1000 mL 1,000 mL: 1,000 mL, IV, Bolus, STAT, Start date 06/09/17 6:35:00 EDT, Total volume (mL): 1,000. Past Medical/ Family/ Social History Medical history: No active or resolved past medical history items have been selected or recorded.. Surgical history: No active procedure history items have been selected or recorded.. Family history: No family history items have been selected or recorded.. Social history: Social & Psychosocial ZtqpjoRqmjfyj29/02/2017 Risk Assessment: Denies Alcohol UseSubstance Abuse06/09/2017 Risk Assessment: Denies Substance AlzsjRgeqiaj15/02/2017 Risk Assessment: Denies Tobacco Use. Physical Examination Vital Signs Time: 06/09/17 06:36:00. Vital Signs 06/09/2017 06:27 EDT Heart Rate Monitored 48 bpm LOW 06/09/2017 06:15 EDT Heart Rate Monitored 50 bpm LOW Systolic Blood Pressure 135 mmHg Diastolic Blood Pressure 84 mmHg 06/09/2017 05:48 EDT Temperature Oral 36.4 DegC Peripheral Pulse Rate 59 bpm LOW Respiratory Rate 18 br/min Systolic Blood Pressure 146 mmHg HI Diastolic Blood Pressure 92 mmHg HI SpO2 98 % . Measurements 06/09/2017 05:48 EDT Height/Length Measured 198 cm . Basic Oxygen Information 06/09/2017 05:48 EDT SpO2 98 % Oxygen Therapy Room air . General: Alert, no acute distress. Skin: Warm, dry. Head: Normocephalic, atraumatic. Neck: Supple, trachea midline. Eye: Pupils are equal, round and reactive to light, extraocular movements are intact, normal conjunctiva, neg. nystagmus. Ears, nose, mouth and throat: Tympanic membranes clear. Cardiovascular: Regular rate and rhythm, No murmur, Normal peripheral perfusion. Respiratory: Lungs are clear to auscultation, respirations are non-labored, breath sounds are equal. Gastrointestinal: Soft, Nontender, Non distended. Back: Nontender, Normal range of motion, Normal alignment. Musculoskeletal: Normal ROM, normal strength, no tenderness, no swelling, no deformity. Neurological: Alert and oriented to person, place, time, and situation, normal motor observed, normal coordination observed, Cranial nerves II - XII: Intact, Speech: Normal, Gait: dizziness reproduced during EOMI exam. Psychiatric: Cooperative. Medical Decision Making Differential Diagnosis: Dizziness. Rationale: Presentation c/w recurrent peripheral Vertigo. Labs, fluid and meds ordered. Will plan to transfer care to oncoming physician Dr. Al at change of shift to review labs and response to treatment and disposition the patient. Impression and Plan Diagnosis Dizzinesses ([id number] R42, Discharge, Medical) Normal [facility] Comment on above: Result Comment: Elec tronically Signed By: Tam GORE, Maxwell\.br\Date and Time Signed: 06/13/17 19:17 EDT DONTE Individual Abson 017 CENTROMERE PROTEIN B AB:ACNC:PT:SER:QN: <0.2 Invalid Interpretation Code 0.0-0.9 [facility] Comment on above: Performed By: #### 2 129690, [id number], 4858613, 6546186 ####[address] [address] CHROMATIN AB:ACNC:PT:SER/FLOR S:QN: <0.2 Invalid Interpretation Code 0.0-0.9 [facility] Comment on above: Performed By: #### 2 949976, 23220667, 7227831, 4358704 ####[place] [address] DNA double strand antibody 1 International_Unit/mL Invalid Interpretation Code 0-9 [facility] Comment on above: Result Comment: Nega tive <5Equivocal 5 - 9Positive >9 Performed By: #### 2 045647, 23345647, 5252404, 8343816 ####[place] [address] BING-1 EXTRACTABLE NUCLEAR AB:ACNC:PT:SER:QN: <0.2 Invalid Interpretation Code 0.0-0.9 [facility] Comment on above: Performed By: #### 2 748820, 63094842, 4238920, 3370509 ####[place] [address] RIBONUCLEOPROTEIN EXTRACTABLE NUCLEAR AB:ACNC:PT:SER:QN: 1.0 AI High 0.0-0.9 [facility] Comment on above: Performed By: #### 2 972357, 19842966, 8701951, 2871817 ####[address] [address] SCL-70 EXTRACTABLE NUCLEAR AB:ACNC:PT:SER:QN: <0.2 Invalid Interpretation Code 0.0-0.9 [facility] Comment on above: Performed By: #### 2 945571, [id number], 0213177, 6080309 ####[facility] [address] [place] [address] See below: Comment Invalid Interpretation Code [facility] Comment on above: Result Comment: Auto antibody Disease Association ----Condition Frequency ---------Antinuclear Antibody, SLE, mixed connectiveDirect (DONTE-D) tissue diseases ---------dsDNA SLE 40 - 60% ---------Chromatin Drug induced SLE 90%SLE 48 - 97% ---------SSA (Ro) SLE 25 - 35%Sjogren's Syndrome 40 - 70% Lupus 100% ---------SSB (La) SLE 10%Sjogren's Syndrome 30% ---------Sm (anti-Conklin) SLE 15 - 30% ---------TRAFFIC SIGNAL MECHANIC Mixed Connective TissueDisease 95%(U1 nRNP, SLE 30 - 50%anti-ribonucleoprotein) Polymyositis and/orDermatomyositis 20% ---------Scl-70 (antiDNA Scleroderma (diffuse) 20 - 35%topoisomerase) Crest 13% ---------Bing-1 Polymyositis and/orDermatomyositis 20 - 40% ---------Centromere B Scleroderma - Crestvariant 80%Performed at: [facility] [place], [place] [id number] PhD Valery Li Performed By: #### 2 372443, 10292646, 5743711, 0480361 ####[facility] [address] [place] [address] Sjogrens syndrome-A antibody <0.2 Invalid Interpretation Code 0.0-0.9 [facility] Comment on above: Performed By: #### 2 908934, 92729961, 3132151, 3058609 ####[facility] [address] [place] [address] Sjogrens syndrome-B antibody <0.2 Invalid Interpretation Code 0.0-0.9 [facility] Comment on above: Performed By: #### 2 474587, 99196556, 7457886, 0259148 ####[facility] [address] [place] [address] Conklin extractable nuclear antibody <0.2 Invalid Interpretation Code 0.0-0.9 [facility] Comment on above: Performed By: #### 2 043597, 91822974, 3609387, 7523711 ####[facility] [address] [place] [address] DONTE w/Reflex if POSon 2016 Nuclear antibody (DONTE) presence Positive Abnormal Negative [facility] Comment on above: Result Comment: Perf ormed at: [facility] [address] [place], [place] [id number] PhD Valery Li Performed By: #### 2 299805, 93412609, 2700700, 7566147 ####[facility] [address] [place] [address] Coding Summary.on 06-12-2017 Coding Summary. CODING DATE: 017 [facility] STATUS: Home (Routine DC) PAYOR: [facility] DESCRIPTION 5522 Level 2 Imaging without Contrast 5524 Level 4 Imaging without Contrast 8008 MRI and MRA with Contrast Composite 5523 Level 3 Imaging without Contrast 8007 MRI and MRA without Contrast Composite 5442 Level 2 Nerve Injections 5025 Level 5 Type A ED Visits 5693 Level 3 Drug Administration 5692 Level 2 Drug Administration ADMIT DX: REASON FOR VISIT DX: R42 Dizziness and giddiness R11.0 Nausea FINAL DX: PRINCIPAL: R42 Dizziness and giddiness SECONDARY: R11.0 Nausea R63.4 Abnormal weight loss R61 Generalized hyperhidrosis H53.8 Other visual disturbances Z79.899 Other fpc (current) drug therapy PYMT PROC APC STAT DESCRIPTION DOCTOR NAME DATE NOTE: The code number assigned matches the documented diagnosis and / or procedure in the patient's chart. However, the narrative phrase printed from the coding software may appear abbreviated, or result in slightly different terminology. Revised Coded By: Josie Richey Revised Date Saved: 06/12/2017 01:54 pm Normal [facility] Hep A,B, C Panelon 7 Hepatitis A IgM antibody presence Negative Invalid Interpretation Code Negative [facility] Comment on above: Performed By: #### 2 682472, 44580281, 5979462, 5765861 ####[facility] [address] [place] [address] Hepatitis B antibody presence Negative Invalid Interpretation Code Negative [facility] Comment on above: Performed By: #### 2 312424, 21995971, 2160430, 7011550 ####[facility] [address] [place] [address] Hepatitis B antigen presence Negative Invalid Interpretation Code Negative [facility] Comment on above: Performed By: #### 2 616763, 37955828, 3022200, 5700569 ####[facility] [address] [place] [address] Hepatitis C antibody Signal/Cutoff {ratio} Invalid Interpretation Code 0.0-0.9 [facility] Comment on above: Result Comment: Nega tive: < 0.8Indeterminate: 0.8 - 0.9Positive: > 0.9The [facility] recommends that a positive HCV antibody resultbe followed up with a HCV Nucleic Acid Amplificationtest (417883).Performed at: [facility] [place], [place] [id number] PhD Valery Li Performed By: #### 2 877264, 12420165, 7824065, 4732900 ####[facility] [address] [place] [address] RF Quanton 06-12-2017 Rheumatoid factor [IU]/mL Invalid Interpretation Code 0.0-13.9 [facility] Comment on above: Result Comment: Perf ormed at: [facility] [address] [place], [place] [id number] PhD Valery Li Performed By: #### 2 751744, 44680608, 0237287, 8045169 ####[facility] [address] [place] [address] Auto Diffon 06-11-2017 Basophils Auto #/vol (Bld) 0.0 E9/L Normal 0.0-0.2 [facility] Comment on above: Order Comment: Order Added by Discern Expert. Performed By: #### 2 191836, 63483496, 3482105, 4339811 ####[facility] [address] [place] [address] Basophils Auto #/vol (Bld) 0.2 % Normal 0.0-2.0 [facility] Comment on above: Order Comment: Order Added by Discern Expert. Performed By: #### 2 451517, 76648504, 3287212, 7535108 ####[place] [address] [place] [address] Eosinophils 0.2 E9/L Normal 0.0-0.5 [facility] Comment on above: Order Comment: Order Added by [employer] Expert. Performed By: #### 2 512101, 89795230, 1168597, 6592055 ####[facility] [address] [place] [address] Eosinophils/100 leukocytes 2.4 % Normal 0.0-8.0 [facility] Comment on above: Order Comment: Order Added by [employer] Expert. Performed By: #### 2 006002, 14679137, 5601423, 3524549 ####[facility] [address] [place] [address] Lymphocytes 2.2 E9/L Normal 1.0-4.0 [facility] Comment on above: Order Comment: Order Added by [employer] Expert. Performed By: #### 2 594980, 46798250, 8843207, 3086815 ####[facility] [address] [place] [address] Lymphocytes/100 leukocytes 28.3 % Normal 14.0-50.0 [facility] Comment on above: Order Comment: Order Added by [employer] Expert. Performed By: #### 2 853608, 88054451, 7718632, 9742550 ####[facility] [address] [place] [address] Monocytes 0.4 E9/L Normal 0.2-1.0 [facility] Comment on above: Order Comment: Order Added by Discern Expert. Performed By: #### 2 535443, 23228894, 2499045, 1630907 ####[facility] [address] [place] [address] Monocytes/100 leukocytes 5.7 % Normal 4.0-14.0 [facility] Comment on above: Order Comment: Order Added by Discern Expert. Performed By: #### 2 685730, 95609593, 3888021, 3538875 ####[facility] [address] [place] [address] Neutrophils 4.9 E9/L Normal 2.0-7.5 [facility] Comment on above: Order Comment: Order Added by [employer] Expert. Performed By: #### 2 507325, 08151403, 0354989, 8591225 ####[facility] [address] [place] [address] Neutrophils/100 leukocytes 63.4 % Normal 36.0-75.0 [facility] Comment on above: Order Comment: Order Added by [employer] Expert. Performed By: #### 2 561977, 07283506, 3888747, 1729766 ####[facility] [address] [place] [address] BMPon 06-11-2017 Anion gap 11 mmol/L Normal 6-16 [facility] Comment on above: Order Comment: The s pecimen for this test has been found unacceptable due to hemolysis as determined by ESTELA.Maikol Porras was contacted and the following determination was made to redraw the patient. Performed By: #### 2 213759, 28125901, 8418488, 5936083 ####[facility] [address] [place] [address] BUN/Creatinine Ratio 15 No Units Normal 10-20 [facility] Comment on above: Order Comment: The s pecimen for this test has been found unacceptable due to hemolysis as determined by Kate Porras was contacted and the following determination was made to redraw the patient. Performed By: #### 2 204703, 84540621, 4172785, 5120123 ####[facility] [address] [place] [address] Calcium 9.2 mg/dL Normal 8.9-11.1 [facility] Comment on above: Order Comment: The s pecimen for this test has been found unacceptable due to hemolysis as determined by ESTELA.Maikol Porras was contacted and the following determination was made to redraw the patient. Performed By: #### 2 899118, 59135717, 1742402, 7041530 ####[facility] [address] [place] [address] Chloride 109 mmol/L Normal 101-111 [facility] Comment on above: Order Comment: The s pecimen for this test has been found unacceptable due to hemolysis as determined by SW.Maikol Porras was contacted and the following determination was made to redraw the patient. Performed By: #### 2 332163, 98550944, 1605919, 8248499 ####[facility] [address] [place] [address] CO2 24 mmol/L Normal 21-31 [facility] Comment on above: Order Comment: The s pecimen for this test has been found unacceptable due to hemolysis as determined by SW.Maikol Porras was contacted and the following determination was made to redraw the patient. Performed By: #### 2 587091, 82848300, 5907300, 5966204 ####[facility] [address] [place] [address] Creatinine 1.0 mg/dL Normal 0.5-1.3 [facility] Comment on above: Order Comment: The s pecimen for this test has been found unacceptable due to hemolysis as determined by ESTELA.Maikol Porras was contacted and the following determination was made to redraw the patient. Performed By: #### 2 092467, 53120044, 2198798, 3068707 ####[facility] [address] [place] [address] Glucose mass conc 97 mg/dL Normal 55-199 [facility] Comment on above: Order Comment: The s pecimen for this test has been found unacceptable due to hemolysis as determined by ESTELA.Maikol Porras was contacted and the following determination was made to redraw the patient. Result Comment: If t his glucose result represents a fasting glucose, interpretation should refer to the following reference range: 55-99 mg/dL Performed By: #### 2 228705, 56320580, 9747754, 0041098 ####[facility] [address] [place] [address] Potassium molar conc 3.8 mmol/L Normal 3.5-5.3 [facility] Comment on above: Order Comment: The s pecimen for this test has been found unacceptable due to hemolysis as determined by ESTELA.Maikol Porras was contacted and the following determination was made to redraw the patient. Performed By: #### 2 544675, 18767400, 1346539, 3605609 ####[facility] [address] [place] [address] Sodium 140 mmol/L Normal 135-145 [facility] Comment on above: Order Comment: The s pecimen for this test has been found unacceptable due to hemolysis as determined by ESTELA.Maikol Porras was contacted and the following determination was made to redraw the patient. Performed By: #### 2 430254, 70134976, 0065693, 3557708 ####[facility] [address] [place] [address] Urea nitrogen 15 mg/dL Normal 5-21 [facility] Comment on above: Order Comment: The s pecimen for this test has been found unacceptable due to hemolysis as determined by ESTELA.Maikol Porras was contacted and the following determination was made to redraw the patient. Performed By: #### 2 862428, 79047895, 4884852, 9321829 ####[facility] [address] [place] [address] CBC w/ Auto Diffon 7 Erythrocyte distribution width Auto Ratio (RBC) 12.8 % Normal 10.9-14.2 [facility] Comment on above: Performed By: #### 2 394945, 43344411, 2368657, 2805058 ####[place] [address] [place] [address] Erythrocytes (RBC) 4.6 E12/L Normal 4.3-5.9 [facility] Comment on above: Performed By: #### 2 302638, 75332067, 7357229, 1555091 ####[place] [address] Hematocrit (HCT) 43.0 % Normal 37.7-49.0 [facility] Comment on above: Performed By: #### 2 604130, 78866019, 1226999, 4258153 ####[place] [address] Hemoglobin mass conc (Bld) 14.6 g/dL Normal 13.5-17.5 [facility] Comment on above: Performed By: #### 2 950322, 76779090, 1548933, 7039751 ####[place] [address] MCH 31.9 pg Normal 27.0-34.0 [facility] Comment on above: Performed By: #### 2 985452, 01402894, 5945716, 2376096 ####[place] [address] MCHC mass conc (RBC) 34.0 g/dL Normal 31.4-39.3 [facility] Comment on above: Performed By: #### 2 115490, 14770120, 4815211, 6625828 ####[address] [address] MCV 93.9 fL Normal 80.0-100.0 [facility] Comment on above: Performed By: #### 2 508506, 75235749, 5225154, 1048774 ####[facility] [address] [place] [address] Platelet mean volume (PMV) 8.6 fL Normal 6.4-10.8 [facility] Comment on above: Performed By: #### 2 393352, 64744639, 8886244, 2691065 ####[facility] [address] [place] [address] Platelets 269.0 E9/L Normal 150.0-500. 0 [facility] Comment on above: Performed By: #### 2 586671, 05567348, 2169942, 7401038 ####[place] [address] [place] [address] WBC (Leukocytes) 7.8 E9/L Normal 4.0-11.0 [facility] Comment on above: Performed By: #### 2 651413, 40980128, 3988111, 1685293 ####[place] [address] CSF Cell Counton 06-11-2017 CLARITY:TYPE:PT:CS F:NOM: CLEAR Normal [facility] Comment on above: Performed By: #### 2 468773, 45302746, 5144808, 6193858 ####[facility] [address] [place], [place] [address] COLOR:TYPE:PT:CSF: NOM: Colorless Normal [facility] Comment on above: Performed By: #### 2 302858, 39237667, 6795278, 5901185 ####[facility] [address] [place] [address] ERYTHROCYTES:NCNC: PT:CSF:QN:AUTOMATE D COUNT 0 Normal <=0 [facility] Comment on above: Performed By: #### 2 552825, 68097771, 3782724, 5868710 ####[facility] [address] [place] [address] Tube Num CSF 3 Invalid Interpretation Code [facility] Comment on above: Performed By: #### 2 436237, 90644439, 6836692, 3464606 ####[facility] [address] [place] [address] WBC (Leukocytes) 1 cells/mcL Normal 0-5 [facility] Comment on above: Performed By: #### 2 857202, 06811656, 6312305, 4906989 ####[facility] [address] [place] [address] CSF Glucoseon 06-11-2017 Glucose in spinal fluid 59 mg/dL Normal 46-70 [facility] Comment on above: Performed By: #### 2 482413, 01991206, 5833420, 2040922 ####[facility] [address] [place] [address] CSF Proteinon 06-11-2017 Protein in spinal fluid 45.0 mg/dL Normal 14.0-45.0 [facility] Comment on above: Performed By: #### 2 543675, 25789506, 6282047, 1958520 ####[facility] [address] [place] [address] Discharge Summaryon 06-11-20 17 Discharge Summary Patient: Emili LARA Age: 52 years Sex: Male : 1965 Associated Diagnoses: None Author: Sherie Partida Discharge Information Discharge Summary Information: Admit Date/Time: 06/09/17 05:44 Discharge Date/Time: 06/11/17 15:11 Admitting Physician: Katheryn Lopez MD Referring Physician for Admission: Consulting Physicians: Shannon Fabian MD Admitting Diagnoses: Dizziness Nausea Neurologic problem Discharge Diagnoses: Dizziness and giddiness Dizziness and giddiness Prescription and Home Meds: diazepam (diazepam 2 mg Tab) 2 mg 1 tab(s) Oral BID, 10 tab(s), Start: 06/11/2017, 0 Refill(s) meclizine (meclizine 25 mg Tab) 25 mg 1 tab(s) Oral TID, 20 tab(s), Start: 06/11/2017, 0 Refill(s) Results Review 36hr Labs06/11 10:55Protein CSF 45.0Glucose CSF 59 Tube Num CSF 3 Color CSF ColorlessClarity CSF ClearRBC CSF 0 WBC CSF 1 Spinal Fluid Cu See FlowsheetTest Name multiple scleroTest Name CSF lymeTest Name CSF ACE06/11 10:15eGFR AA >60eGFR >60BUN 15 Creatinine 1.0Sodium Lvl 140Potassium Lvl 3.8Chloride 109CO2 24 AGAP 11 BUN/Creat Ratio 15 Calcium Lvl 9.2Glucose Lvl 97 06/11 07:07PT 9.9INR 0.91PTT 25.9Neutro Auto 63.4Lymph Auto 28.3Mono Auto 5.7Eos Auto 2.4Basophil Auto 0.2Neutro Absolute 4.9Lymph Absolute 2.2Mono Absolute 0.4Eos Absolute 0.2Basophil Absolu 0.0WBC 7.8RBC 4.6Hgb 14.6Hct 43.0MCV 93.9MCH 31.9MCHC 34.0RDW 12.8Platelet 269.0MPV 8.6Test Name bufdjwwgjxrghx20/03 06:13eGFR >60eGFR AA >60Calcium Lvl 8.8 LChloride 112 HTrig 183 HBUN 13 Creatinine 1.0Sodium Lvl 139Potassium Lvl 3.9CO2 23 AGAP 8 BUN/Creat Ratio 13 Glucose Lvl 99 Magnesium 1.8TSH 3.96Chol 170HDL 33 LDL Direct 100VLDL 37 PT 10.2INR 0.94PTT 25.9Neutro Auto 54.2Lymph Auto 36.3Mono Auto 5.7Eos Auto 3.3Basophil Auto 0.5Neutro Absolute 3.6Lymph Absolute 2.4Mono Absolute 0.4Eos Absolute 0.2Basophil Absolu 0.0WBC 6.6RBC 4.3Hgb 13.5Hct 40.2MCV 93.5MCH 31.3MCHC 33.5RDW 12.9Platelet 255.0MPV 8.4 Intake Output Aypzear5806/11/2017 7a-3p 0.5 0 0.5 3p-11p 0 0 0 As of 15:12 11p-7a 0 0 0 Totals 0.5 0 0. 7a-3p 360.5 4 356.5 3p-11p 480 1 479 11p-7a 350 0 350 Totals 1190.5 5 1185.510 7a-3p 0 0 0 3p-11p 240 350 -110 11p-7a 100 0 100 Totals 340 350 -10 Physical Examination Vitals Signs (last 24 hrs) Last Charted Minimum MaximumTemp 36.6 (JUN 11 08:21) 36.4 (JUN 11 03:45) 36.8 (JUN 10 19:44)Heart Rate L 49 (JUN 11 11:35) L 49 (JUN 11 11:35) 63 (JUN 10 16:00)Resp Rate 16 (JUN 11 11:35) 16 (JUN 11 03:45) 18 (JUN 10 16:00)SBP 121 (JUN 11 11:35) 121 (JUN 11 11:35) H 155 (JUN 11 08:21)DBP 82 (JUN 11 11:35) 72 (JUN 11 03:45) H 98 (JUN 11 08:21)MAP 95 (JUN 11 11:35) 89 (JUN 11 03:45) 117 (JUN 11 08:21)SpO2 97 (JUN 11 11:35) 95 (JUN 10 19:44) 99 (JUN 10 16:00) General: Alert and oriented, No acute distress. Appearance: Calm. Behavior: Appropriate, Cooperative. Skin: Normal for ethnicity. Eye: Pupils are equal, round and reactive to light, Extraocular movements are intact, Normal conjunctiva. HENT: Normocephalic, Normal hearing, Oral mucosa is moist. Neck: Supple. Respiratory: Lungs are clear to auscultation, Respirations are non-labored, Symmetrical chest wall expansion. Cardiovascular: 54 beats per minute, Regular rhythm, Bradycardia, Good pulses equal in all extremities, No edema. Gastrointestinal: Soft, Non-tender, Normal bowel sounds. Genitourinary: No inguinal tenderness. Musculoskeletal Upper extremity exam: arm (bilateral, numbness, tingling, strength 5 /5, range of motion, limited ROM difficulty lifting arm. unable to life overhead. ), forearm (bilateral, numbness, tingling, range of motion (diminished, restricted by pain), limited with movement. ), fingers (bilateral, fourth finger, fifth finger, numbness and tingling). Spine/torso exam: cervical limited flex with normal extentsion. . Neurologic: Alert, Oriented, Cranial Nerves II-XII are grossly intact. Orientation: Oriented X 4. NIH Stroke Scale: Level of consciousness ( Alert = 0 ), Ask patient current month and age ( Answers both correctly = 0 ), Ask patient to open and close eyes ( Obeys both correctly = 0 ), Best gaze ( Normal = 0 ), Visual field testing ( No visual field loss = 0 ), Facial paresis ( Normal symmetric movement = 0 ), Motor function left arm ( Normal = 0, difficulty lifting arms but not new. ), Motor function right arm ( Normal = 0, difficulty lifting arms but not new. ), Motor function left leg ( Normal = 0 ), Motor function right leg ( Normal = 0 ), Limb ataxia ( No ataxia = 0 ), Sensory ( Normal = 0 ), Best language ( No aphasia = 0 ), Dysarthria ( Normal articulation = 0 ), Extinction and inattention ( Normal = 0 ), Total score 0. Cognition and Speech: Oriented, Speech clear and coherent. Psychiatric: Cooperative, Appropriate mood & affect. Integumentary: Warm, Dry, [place], Intact. Hospital Course Hospital Course Admitted from: from emergency department. PLAN: Dizziness with lightheadedness differentials include TIA/CVA, BPPV, cervical stenosis vs autoimmune-Fernando Hallpike negative; -Increased complaints at rest and with movement- increases with bending over -Does have limited ROM to bilateral arms on exam with complaints of weakness,numbness/tingling.-CT Head -negative -Consult Neurology - -impression and plan appreciated Patient has reported recent history with weightloss, night sweats, blurred vision and difficuty with imbalance while ambulating.-Lumbar puncture today -tolerated well. no complaints post. 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 No cervical cord impingement noted.?Scans reviewed by Dr. Raoul Barlow-orthospine- no surgical intervention needed.-ECHO- LVEF calculated by biplane 62% with mild concentric left ventricular hypertrophy and normal diastolic function. No interatrial shunt seen by color Doppler or bubble study. -Carotid US -notes no uujdiqud-Wdyuplogu-Vbkjp sinus bradycardia.-EKG notes bradycardia ? symptomatic. -Start Aspirin 81mg daily- does not need on discharge.-Continue Meclizine prn -Lipid pangel- normal-Tox screen/U/A - negative- PCP to follows labs that are pending after discharge. -PT/OT to eval, treat. Recommending outpatient therapies.DVT Prophylaxis: Heparin sq on hold for LP in today. Dispositon: 52 year old Caucasion male with past medical history for ? Sana presented to the ED with complaints of increasing dizziness, lightheadedness; Stated that has symptoms were noted both at rest and with movment but worsened with bending over. 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 Noticed increase in cervical pain. Did have noted limited flexion of neck with decreased ROM to bilateral arms. Did complain of bilateral arm weakness with numbness and tingling from elbows to hands. CT Head in ED was negative. Patient was admitted to hospitalist group for further work up and neurology consultation patient was seen by who noted that patient has reported recent history with weightloss, night sweats, blurred vision and difficuty with imbalance while ambulating. 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 No cervical cord impingement noted.Cervical scans reviewed by Dr. Raoul Barlow-orthospine who noted no surgical intervention needed. Echo LVEF calculated by biplane 62% with mild concentric left ventricular hypertrophy and normal diastolic function. No interatrial shunt seen by color Doppler or bubble study. Carotid US -notes no stenosis; patient cleared by neurology for discharge home with intention to follow up with neurology, opthamology and rheumatology at [facility]. patient will also follow with PCP Dr Favio Prabhakar. patient is stable and doing well. Does not complain of spinal headache at this time. Will discharge home in stable condition. Case reviewed and discussed with who is in agreement with current discharge plan. Patient discharged in stable condition. Discharge Plan Discharge Time Discharge time > 30 min. Discharge Summary Plan Discharge Status: stable. Discharge instructions given: to patient, to family member spouse. Education and Follow-up Counseled: patient, regarding diagnosis, regarding treatment, regarding medications. [facility] Comment on above: Result Comment: Elec tronically Signed By: Sherie Partida\.br\Date and Time Signed: 06/11/17 16:29 EDT\.br\Electronically Co-Signed By: Sherie Partida\.br\Date and Time Co-Signed: 06/11/17 16:37 EDT\.br\Electronically Co-Signed By: Heladio Castaneda MD\.br\Date and Time Co-Signed: 06/11/17 16:56 EDT Inpatient Clinical Summaryon 06-11-2017 Inpatient Clinical Summary [place] [id number] Clinical Summary Person Information:Name: NEERAJ LARA Age: 52 Years : 1965 12:00 AM Sex: Male PCP: FAVIO PRABHAKAR DO Marital Status: Race:White Ethnicity:Non- or Language:Egyptian Visit Id: Visit Reason:Neurologic problem; Nausea; Dizziness; VERTIGO, POSS STROKE, STROKE WORK UP Speciality: Acuity: 3 Enc Type: Observation Med Service: Medical Arrival:06/09/2017 5:44 AM Discharge: Dispo Type: Admitted as IP to this Hosp Address:[address] [place] [id number] Provider Notes: Patient: NEERAJ LARA Age: 52 years Sex: Male : 1965 Associated Diagnoses: None Author: Sherie Partida Discharge Information Discharge Summary Information: Admit Date/Time: 06/09/17 05:44 Discharge Date/Time: 06/11/17 15:11 Admitting Physician: Katheryn Lopez MD Referring Physician for Admission: Consulting Physicians: Shannon Fabian MD Admitting Diagnoses: Dizziness Nausea Neurologic problem Discharge Diagnoses: Dizziness and giddiness Dizziness and giddiness Prescription and Home Meds: diazepam (diazepam 2 mg Tab) 2 mg 1 tab(s) Oral BID, 10 tab(s), Start: 06/11/2017, 0 Refill(s) meclizine (meclizine 25 mg Tab) 25 mg 1 tab(s) Oral TID, 20 tab(s), Start: 06/11/2017, 0 Refill(s) Results Review 36hr Labs06/11 10:55Protein CSF 45.0Glucose CSF 59 Tube Num CSF 3 Color CSF ColorlessClarity CSF ClearRBC CSF 0 WBC CSF 1 Spinal Fluid Cu See FlowsheetTest Name multiple scleroTest Name CSF lymeTest Name CSF ACE06/11 10:15eGFR AA >60eGFR >60BUN 15 Creatinine 1.0Sodium Lvl 140Potassium Lvl 3.8Chloride 109CO2 24 AGAP 11 BUN/Creat Ratio 15 Calcium Lvl 9.2Glucose Lvl 97 06/11 07:07PT 9.9INR 0.91PTT 25.9Neutro Auto 63.4Lymph Auto 28.3Mono Auto 5.7Eos Auto 2.4Basophil Auto 0.2Neutro Absolute 4.9Lymph Absolute 2.2Mono Absolute 0.4Eos Absolute 0.2Basophil Absolu 0.0WBC 7.8RBC 4.6Hgb 14.6Hct 43.0MCV 93.9MCH 31.9MCHC 34.0RDW 12.8Platelet 269.0MPV 8.6Test Name zifyhngnhdvskl83/03 06:13eGFR >60eGFR AA >60Calcium Lvl 8.8 LChloride 112 HTrig 183 HBUN 13 Creatinine 1.0Sodium Lvl 139Potassium Lvl 3.9CO2 23 AGAP 8 BUN/Creat Ratio 13 Glucose Lvl 99 Magnesium 1.8TSH 3.96Chol 170HDL 33 LDL Direct 100VLDL 37 PT 10.2INR 0.94PTT 25.9Neutro Auto 54.2Lymph Auto 36.3Mono Auto 5.7Eos Auto 3.3Basophil Auto 0.5Neutro Absolute 3.6Lymph Absolute 2.4Mono Absolute 0.4Eos Absolute 0.2Basophil Absolu 0.0WBC 6.6RBC 4.3Hgb 13.5Hct 40.2MCV 93.5MCH 31.3MCHC 33.5RDW 12.9Platelet 255.0MPV 8.4 Intake Output Mvtntac4306/11/2017 7a-3p 0.5 0 0.5 3p-11p 0 0 0 As of 15:12 11p-7a 0 0 0 Totals 0.5 0 0.510 7a-3p 360.5 4 356.5 3p-11p 480 1 479 11p-7a 350 0 350 Totals 1190.5 5 1185.510 7a-3p 0 0 0 3p-11p 240 350 -110 11p-7a 100 0 100 Totals 340 350 -10 Physical Examination Vitals Signs (last 24 hrs) Last Charted Minimum MaximumTemp 36.6 (JUN 11 08:21) 36.4 (JUN 11 03:45) 36.8 (JUN 10 19:44)Heart Rate L 49 (JUN 11 11:35) L 49 (JUN 11 11:35) 63 (JUN 10 16:00)Resp Rate 16 (JUN 11 11:35) 16 (JUN 11 03:45) 18 (JUN 10 16:00)SBP 121 (JUN 11 11:35) 121 (JUN 11 11:35) H 155 (JUN 11 08:21)DBP 82 (JUN 11 11:35) 72 (JUN 11 03:45) H 98 (JUN 11 08:21)MAP 95 (JUN 11 11:35) 89 (JUN 11 03:45) 117 (JUN 11 08:21)SpO2 97 (JUN 11 11:35) 95 (JUN 10 19:44) 99 (JUN 10 16:00) General: Alert and oriented, No acute distress. Appearance: Calm. Behavior: Appropriate, Cooperative. Skin: Normal for ethnicity. Eye: Pupils are equal, round and reactive to light, Extraocular movements are intact, Normal conjunctiva. HENT: Normocephalic, Normal hearing, Oral mucosa is moist. Neck: Supple. Respiratory: Lungs are clear to auscultation, Respirations are non-labored, Symmetrical chest wall expansion. Cardiovascular: 54 beats per minute, Regular rhythm, Bradycardia, Good pulses equal in all extremities, No edema. Gastrointestinal: Soft, Non-tender, Normal bowel sounds. Genitourinary: No inguinal tenderness. Musculoskeletal Upper extremity exam: arm (bilateral, numbness, tingling, strength 5 /5, range of motion, limited ROM difficulty lifting arm. unable to life overhead. ), forearm (bilateral, numbness, tingling, range of motion (diminished, restricted by pain), limited with movement. ), fingers (bilateral, fourth finger, fifth finger, numbness and tingling). Spine/torso exam: cervical limited flex with normal extentsion. . Neurologic: Alert, Oriented, Cranial Nerves II-XII are grossly intact. Orientation: Oriented X 4. NIH Stroke Scale: Level of consciousness ( Alert = 0 ), Ask patient current month and age ( Answers both correctly = 0 ), Ask patient to open and close eyes ( Obeys both correctly = 0 ), Best gaze ( Normal = 0 ), Visual field testing ( No visual field loss = 0 ), Facial paresis ( Normal symmetric movement = 0 ), Motor function left arm ( Normal = 0, difficulty lifting arms but not new. ), Motor function right arm ( Normal = 0, difficulty lifting arms but not new. ), Motor function left leg ( Normal = 0 ), Motor function right leg ( Normal = 0 ), Limb ataxia ( No ataxia = 0 ), Sensory ( Normal = 0 ), Best language ( No aphasia = 0 ), Dysarthria ( Normal articulation = 0 ), Extinction and inattention ( Normal = 0 ), Total score 0. Cognition and Speech: Oriented, Speech clear and coherent. Psychiatric: Cooperative, Appropriate mood & affect. Integumentary: Warm, Dry, [place], Intact. Hospital Course Hospital Course Admitted from: from emergency department. PLAN: Dizziness with lightheadedness differentials include TIA/CVA, BPPV, cervical stenosis vs autoimmune-Carlton Hallpike negative; -Increased complaints at rest and with movement- increases with bending over -Does have limited ROM to bilateral arms on exam with complaints of weakness,numbness/tingling.-CT Head -negative -Consult Neurology - -impression and plan appreciated Patient has reported recent history with weightloss, night sweats, blurred vision and difficuty with imbalance while ambulating.-Lumbar puncture today -tolerated well. no complaints post. 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 No cervical cord impingement noted.?Scans reviewed by Dr. Raoul Barlow-orthospine- no surgical intervention needed.-ECHO- LVEF calculated by biplane 62% with mild concentric left ventricular hypertrophy and normal diastolic function. No interatrial shunt seen by color Doppler or bubble study. -Carotid US -notes no fgknokei-Zatsdsngo-Uusty sinus bradycardia.-EKG notes bradycardia ? symptomatic. -Start Aspirin 81mg daily- does not need on discharge.-Continue Meclizine prn -Lipid pangel- normal-Tox screen/U/A - negative- PCP to follows labs that are pending after discharge. -PT/OT to eval, treat. Recommending outpatient therapies.DVT Prophylaxis: Heparin sq on hold for LP in today. Dispositon: 52 year old Caucasion male with past medical history for ? Legionalize presented to the ED with complaints of increasing dizziness, lightheadedness; Stated that has symptoms were noted both at rest and with movment but worsened with bending over. 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 Noticed increase in cervical pain. Did have noted limited flexion of neck with decreased ROM to bilateral arms. Did complain of bilateral arm weakness with numbness and tingling from elbows to hands. CT Head in ED was negative. Patient was admitted to hospitalist group for further work up and neurology consultation patient was seen by who noted that patient has reported recent history with weightloss, night sweats, blurred vision and difficuty with imbalance while ambulating. 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 No cervical cord impingement noted.Cervical scans reviewed by Dr. Raoul Barlow-orthospine who noted no surgical intervention needed. Echo LVEF calculated by biplane 62% with mild concentric left ventricular hypertrophy and normal diastolic function. No interatrial shunt seen by color Doppler or bubble study. Carotid US -notes no stenosis; patient cleared by neurology for discharge home with intention to follow up with neurology, opthamology and rheumatology at [facility]. patient will also follow with PCP Dr Favio Prabhakar. patient is stable and doing well. Does not complain of spinal headache at this time. Will discharge home in stable condition. Case reviewed and discussed with who is in agreement with current discharge plan. Patient discharged in stable condition. Discharge Plan Discharge Time Discharge time > 30 min. Discharge Summary Plan Discharge Status: stable. Discharge instructions given: to patient, to family member spouse. Education and Follow-up Counseled: patient, regarding diagnosis, regarding treatment, regarding medications. 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 Refills: 0.meclizine (meclizine 25 mg Tab) 1 Tabs By Mouth 3 times a day as needed for dizziness. Refills: 0. Care Team Members:Attending Physician: John GORE, Jose Juanonsulting Physician: Caren GORE, NamantteReferring Physician: Follow up:With: Address: When: Rheumatology [facility] 09/19/17 07:40:00 Comments: Patient will go to [address] Patient will be seeing Doctor Carcamo (Emily) patient will need to bring a current list of medications and orginal medication bottles, photo I.D., insurance card, yellow envolope from [facility] with paperwork inside With: Address: When: Optamology at [facility] 08/08/17 08:00:00 Comments: Patient will go to [address] 2nd floor Desk [address] 20 Patient will be seeing Doctor Strauss (Lisa) Patient will need someone with them to drive home, sunglasses, current list of medications and medications in orginal bottles, photo I.D., insurance card, yellow envolope from [facility] with patient information inside Patient needs to be aware this test can take up to three hours With: Address: When: Neurology at [facility] 06/20/17 08:40:00 Comments: Patient will go to [address] [place] [address] 8th floor Desk S80 The Patient will be seeing Doctor Veras (Dolora) Patient will need to bring the following iteams for this appointment: a current list of medication & medications in the orginal bottles, photo I.D., insurance card, and yellow envolpe from the hospital from the hospital stay at [facility] With: Address: When: FAVIO PRABHAKAR [address] [place] [address] Business (1) Comments: Call for followup appointment 3-5 days Patient Education Information: Dizziness, Aneq-bb-Pyfp; Core Measures Transient Ischemic Attack (TIA) [facility] (Custom); Core Measures: Stroke (Cerebrovascular Accident) [facility], (Custom) Normal [facility] Inpatient Patient Summaryon 06-11-2017 Inpatient Patient Summary [address] [id number] Patient Discharge Instructions PERSON INFORMATION Name: NEERAJ LARA Date of : 1965 12:00 AM Current Date: 06/11/17 17:39:27 PHYSICIANS Admitting Physician: John GORE, [facility] Care Physician: VANE PRABHAKAR DO Comment: Discharge Diagnosis: Dizzinesses; VertigoCondition at Discharge: Stable NEERAJ LARA has been given the following list of follow-up instructions, prescriptions, and patient education materials: PATIENT FOLLOW-UP INFORMATIONDiet: Regular, Fat Modified- Low cholesterolDischarge Activity: Activity as toleratedDischarge Restrictions: No restrictionsWound Care Instructions: Remove Your Dressing In DaysCall Your Doctor For: IF UNABLE TO CONTACT YOUR PHYSICIAN AND YOU FEEL IT IS AN EMERGENCY, GO TO THE NEAREST EMERGENCY ROOM OR CALL 911 Home Treatment: Devices/Equipment: Special Services: Additional Instructions: Keep follow up appointments with neurology, opthamology and rheumatologyPrimary Care Physician to provide the following pending test results: Other: Multiple CSFFollow up:With: Address: When: Rheumatology [facility] 09/19/17 07:40:00 Comments: Patient will go to [address] Patient will be seeing Doctor Carcamo (Emily) patient will need to bring a current list of medications and orginal medication bottles, photo I.D., insurance card, yellow envolope from [facility] with paperwork inside With: Address: When: Optamology at [facility] 08/08/17 08:00:00 Comments: Patient will go to [address] 2nd floor Desk I 20 Patient will be seeing Doctor Strauss (Lisa) Patient will need someone with them to drive home, sunglasses, current list of medications and medications in orginal bottles, photo I.D., insurance card, yellow envolope from [facility] with patient information inside Patient needs to be aware this test can take up to three hours With: Address: When: Neurology at [facility] 06/20/17 08:40:00 Comments: Patient will go to [address] [place] [address] 8th floor Desk [address]80 The Patient will be seeing Doctor Veras (Dolora) Patient will need to bring the following iteams for this appointment: a current list of medication & medications in the orginal bottles, photo I.D., insurance card, and yellow envolpe from the hospital from the hospital stay at [facility] With: Address: When: FAVIO PRABHAKAR [address] [place] [id number] Business (1) Comments: Call for followup appointment 3-5 days In the event that this physician does not participate in your insurance network, please consult with your insurance company to find a nearby participating provider. Comment: MARCO Munroe LUCKY C, have received the attached patient education materials/instructions and have verbalized understanding:Patient Signature Date Clinican/Nurse Signature Date HERE ARE THE MEDICATION CHANGES THAT OCCURRED DURING YOUR HOSPITAL STAY Medications to Continue with No ChangesPrinted Prescriptionsdiazepam (diazepam 2 mg Tab) 1 Tabs By Mouth 2 times a day. Refills: 0.Last Dose: Next Dose: meclizi ne (meclizine 25 mg Tab) 1 Tabs By Mouth 3 times a day as needed for dizziness. Refills: 0.Last Dose: Next Dose: Comment : MEDICATION LIST PROVIDED FOR YOU IS A LIST OF YOUR CURRENT MEDICATIONS. PLEASE CARRY THIS WITH YOU AT ALL TIMES. diazepam (diazepam 2 mg Tab) 1 Tabs By Mouth 2 times a day. Refills: 0.meclizine (meclizine 25 mg Tab) 1 Tabs By Mouth 3 times a day as needed for dizziness. Refills: 0.Pharmacy Information: [facility]: PATIENT EDUCATION INFORMATIONInstructions:Dizzines sDizziness means you feel unsteady or lightheaded. You might feel like you are going to pass out (faint). HOME CARE? Drink enough fluids to keep your pee (urine) clear or pale yellow.? Take your medicines exactly as told by your doctor. If you take blood pressure medicine, always stand up slowly from the lying or sitting position. Hold on to something to steady yourself.? If you need to support services coordinator one place for a long time, move your legs often. Tighten and relax your leg muscles.? Have someone stay with you until you feel okay.? Do not drive or use heavy machinery if you feel dizzy.? Do not drink alcohol.GET HELP RIGHT AWAY IF:? You feel dizzy or lightheaded and it gets worse.? You feel sick to your stomach (nauseous), or you throw up (vomit).? You have trouble talking or walking.? You feel weak or have trouble using your arms, hands, or legs.? You cannot think clearly or have trouble forming sentences.? You have chest pain, belly (abdominal) pain, sweating, or you are short of breath.? Your vision changes.? You are bleeding.? You have problems from your medicine that seem to be getting worse.MAKE SURE YOU:? Understand these instructions.? Will watch your condition.? Will get help right away if you are not doing well or get worse.Document Released: 08/13/2012 Document Revised: 11/16/2012 Document Reviewed: 08/13/2012ExitCare? Patient Information ?2015 [employer]. This information is not intended to replace advice given to you by your health care provider. Make sure you discuss any questions you have with your health care provider.Transient Ischemic AttackYou have had a transient ischemic attack (TIA). This means that the nervous system did not work properly for a short time. It is caused by a low oxygen supply to an area of your brain. It may be caused by a small blood clot or hardening of the arteries. This is a temporary neurologic condition. It usually gets better within thirty minutes, but always within twenty-four hours. If this does not resolve within that time period, it is defined as a stroke. TIA's are warning signs that you are at risk for having a stroke. A small percentage of patients who have had a TIA will have a stroke within a couple days, and up to 20% will have a stroke within 3 months. PREVENTIONThe likelihood of a stroke can be decreased by appropriate treatment of high blood pressure, high cholesterol, diabetes, and by stopping smoking. RISK FACTORS: If you have been told by your doctor or nurse practitioner that you have any of the following risk factors for stroke, work with your health post acute care registered nurse to control them.Risk Factors: High Blood Pressure: High blood pressure is one of the main causes of stroke. It is the most important risk factor to control. Take your blood pressure medication, lose weight, increase your activity, and limit your salt intake to help control your blood pressure.Take your your blood pressure and write it down and then take them to your next doctor's appointment. Smoking: If you smoke: QUIT! We can help. Please call [facility] at [phone] ([facility]), or [phone], ext. [phone] Diabetes: Work with your healthcare professional to keep your blood sugar under control. Check your blood sugar and take the results to your next doctor's visit. Take your medications as directed. Eating a healthy diet and exercising will also help keep your diabetes under control. For information on [facility] please call, . Carotid or other Artery Diseases: The carotid arteries in your neck carry blood to the brain. A stroke can be caused by a blood clot blocking an artery that has been damaged by a fatty buildup inside the artery wall. Discuss ways to manage this with your health care provider. Atrial Fibrillation (A Fib): In A fib, your heart does not have a normal beat. This may allow clots to form and puts you at a greater risk for having a stroke. Work with your health care provider to control your A fib. Your doctor may order special medication that helps prevent clots from forming.High blood cholesterol or high blood fats: High cholesterol increases your risk of stroke. Exercise regularly, but talk to your health care provider first. A diet low in fat and cholesterol can help. If you have any questions about a low fat, low cholesterol diet, you can call our [facility] technician test systems at [phone] Ext [phone]. The goal for total cholesterol is less than 200, and for LDL or the bad cholesterol is less than 100. Lifestyle Management: You increase your risk of stroke if you are overweight or obese, are not very active, or use drink too much alcohol. Enjoy a diet rich in fruits and vegetables. Exercise regularly and drink alcohol in moderation or no more than two drinks a day for men and no more than one drink a day for non- women, or don;t drink at all. This will help decrease your risk of stroke. Oral Contraceptives: Taking control pills or the pill can be a risk factor for stroke especially if you smoke. Discuss using the oral contraceptives and your risk of stroke with your health post acute care registered nurse. If this is your first ischemic attack, you will need further evaluation by your caregiver. You may need appropriate treatment and lifestyle changes as recommended. A certain number of patients with TIA go on to develop a stroke. It is very important that you follow up, as instructed, with your caregiver or a specialist in order to continue your evaluation and decide on a course of treatment. The failure to follow up in the time frame indicated by your caregiver may lead to worsening of your condition and permanent disability and possible .If you develop signs and symptoms of a stroke, TIME IS OF THE ESSENCE! Call 911. Medications to dissolve a blood clot can only be used within four and a half hours of the onset of symptoms.After that time, treatment of stroke depends on duration of symptoms, severity, and cause. It?s important to know and control your risk factors, but it is also important to recognize the signs and symptoms of stroke/TIA and know what to do:Call ?911? if any of these things happen: ? Sudden numbness or weakness of the face, arm, or leg especially on one side of the body.? Sudden confusion, trouble speaking, or understanding.? Sudden trouble seeing in one or both eyes.? Sudden trouble walking, dizziness, loss of balance or coordination? Sudden severe headache with no known cause * It is very important for you to follow-up with your Primary Care Doctor and your Neurologist after you go home. Make sure that you keep your doctor visits. Remember: TIME LOST is BRAIN LOSTResources: for more information on strokes, log onto www.SPOTBY.COM.com or www.strokeassociation.org or call the [place] [employer] at .Revised 05/2016Stroke (Cerebrovascular Accident) A stroke is acute of brain tissue, and it is a neurologic emergency. A stroke can cause permanent loss of function of the central nervous system (brain). If the symptoms of a stroke end without complications in 24 hours, it is diagnosed as a transient ischemic attack (TIA). If the symptoms are not resolved within 24 hours, it is defined as a stroke. CAUSESA stroke is caused by a decrease of oxygen supply to an area of your brain. It is usually the result of a small blood clot or hardening of the arteries. Blockages in, or damage to, the carotid arteries leading to the brain can also cause a stroke. Bleeding in the brain can cause, or accompany, a stroke.SYMPTOMSThese symptoms usually develop suddenly (or may be newly present upon awakening from sleep):Loss of vision. Double vision.Confusion. Numbness or weakness on one side of the face or body.Inability to speak (aphasia). DIAGNOSISYour caregiver can often determine the presence or absence of a stroke based on your symptoms, history, and examination. A CT scan of the brain is usually performed to confirm the stroke, look for causes, and determine the severity. Other tests may be done to find the cause of the stroke, including: An EKG and heart monitoring.An echocardiogram (ultrasound evaluation of the heart).An ultrasound evaluation of your carotid arteries.Determination of blood oxygen level and blood tests. PREVENTIONThe likelihood of a stroke can be decreased by appropriate treatment of high blood pressure, high cholesterol, diabetes, and by stopping smoking. RISK FACTORS: If you have been told by your doctor or nurse practitioner that you have any of the following risk factors for stroke, work with your health post acute care registered nurse to control them.High Blood Pressure: High blood pressure is one of the main causes of stroke. It is the most important risk factor to control. Take your blood pressure medication, lose weight, increase your activity, and limit your salt intake to help control your blood pressure.Take your your blood pressure and write it down and then take them to your next doctor's appointment. Smoking: If you smoke: QUIT! We can help. Please call [facility] at [phone] ([facility]), or [phone], ext. [phone] Diabetes: Work with your healthcare professional to keep your blood sugar under control. Check your blood sugar and take the results to your next doctor's visit. Take your medications as directed. Eating a healthy diet and exercising will also help keep your diabetes under control. For information on [facility] please call, . Carotid or other Artery Diseases: The carotid arteries in your neck carry blood to the brain. A stroke can be caused by a blood clot blocking an artery that has been damaged by a fatty buildup inside the artery wall. Discuss ways to manage this with your health care provider. Atrial Fibrillation (A Fib): In A fib, your heart does not have a normal beat. This may allow clots to form and puts you at a greater risk for having a stroke. Work with your health care provider to control your A fib. Your doctor may order special medication that helps prevent clots from forming.High blood cholesterol or high blood fats: High cholesterol increases your risk of stroke. Exercise regularly, but talk to your health care provider first. A diet low in fat and cholesterol can help. If you have any questions about a low fat, low cholesterol diet, you can call our [facility] technician test systems at [phone] Ext. [phone]. The goal for total cholesterol is less than 200, and for LDL or the bad cholesterol is less than 100. Lifestyle Management: You increase your risk of stroke if you are overweight or obese, are not very active, or use drink too much alcohol. Enjoy a diet rich in fruits and vegetables. Exercise regularly and drink alcohol in moderation or no more than two drinks a day for men and no more than one drink a day for non- women, or don;t drink at all. This will help decrease your risk of stroke. Oral Contraceptives: Taking control pills or the pill can be a risk factor for stroke especially if you smoke. Discuss using the oral contraceptives and your risk of stroke with your health post acute care registered nurse. TREATMENTTIME IS OF THE ESSENCE! Medications to dissolve a blood clot can only be used within four and a half hours of the onset of symptoms. After that time, treatment of stroke depends on duration of symptoms, severity, and cause. Medications and diet measures may be used to address diabetes, high blood pressure, and other risk factors. Physical therapy, speech therapy, and occupational therapy specialists will assess you and work to improve any functions impaired by the stroke. Measures will be taken to prevent short and termite renewal inspector complications, including aspiration pneumonia, blood clots in the legs, bedsores, and falls. HOME CARE INSTRUCTIONSCare at home after a stroke can be complicated. Medications ? Blood thinners may be used to prevent another stroke. Blood thinners need to be used exactly as instructed. Medicines may also be used to control risk factors for a stroke. Be sure you understand all your medication instructions. It is very important to not run out of your medicine. Get more while you still have a one-week supply. Do not stop taking your medicine without speaking to your healthcare professional. Take all of your medications or an updated list of your medications to all of your doctor's appointments. Physical, occupational, and speech therapy ? Ongoing therapy is often necessary to maximize recovery after a stroke. If you have been advised to use a walker or a cane, use it at all times. Be sure you keep your therapy appointments.Diet ? Certain diets may be prescribed to address high blood pressure, high cholesterol, or diabetes. Foods may need to be a special consistency (soft, pureed, small bites) to avoid food going into your lungs or choking.Home safety ? A safe home environment is important to reduce the risk of falls. Your caregiver may arrange for specialists to evaluate your home. Grab bars in the bedroom and bathroom are often important. Your caregiver may arrange for special equipment to be used at home, such as raised toilets and a seat for the shower. It?s important to know and control your risk factors, but it is also important to recognize the signs and symptoms of stroke/TIA and know what to do:Call ?911? if any of these things happen: ? Sudden numbness or weakness of the face, arm, or leg especially on one side of the body.? Sudden confusion, trouble speaking, or understanding.? Sudden trouble seeing in one or both eyes.? Sudden trouble walking, dizziness, loss of balance or coordination? Sudden severe headache with no known cause * It is very important for you to follow-up with your Primary Care Doctor and your Neurologist after you go home. Make sure that you keep your doctor visits. Remember: TIME LOST is BRAIN LOST Resources: for more information on strokes, log onto www.[employer] [email or web address] or www.strokeassociation.org or call the [place] [employer] at .Revised 05/2016 Medication Leaflets: Th ank you for choosing [facility] Normal [facility] PT & PTTon 06-11-2017 aPTT 25.9 second(s) Normal 21.1-34.3 [facility] Comment on above: Result Comment: Hepa rin therapeutic range (represented by Anti-Factor Xa activity of 0.3-0.7 U/mL) corresponds to PTT of 57.8-86.7 sec. Performed By: #### 2 [id number] ####[facility] [address] [address] INR Coag RelTime (PPP) 0.91 No Units Invalid Interpretation Code [facility] Comment on above: Result Comment: INR results are specifically intended to assess patients stabilized on long-term Anticoagulation therapy suggested INR?s ?Less Intensive Anticoagulation? 2.0 ? 3.0Conventional Range 3.0 ? 4.5 Performed By: #### 2 [id number] ####[facility] [address] [place] [place] [address] Prothrombin time (PT) Coag time (PPP) 9.9 second(s) Normal 9.7-12.3 [facility] Comment on above: Performed By: #### 2 [id number] ####[facility] [address] [place] [address] Progress Note-Physicianon Progress Note-Physician Patient: NEERAJ LARA Age: 52 years Sex: Male : 1965 Associated Diagnoses: None Author: Shannon Fabian MD Subjective Patient remains clinically unchanged. He reports that casimiro was not symptomatic, but did have several vs sets which met criteria for orthostatic hypotension. I spent an extensive amount of time in bedside discussion with patient and . Review of Systems As per subjective, all others negative. Health Status Current medications: Home Medications (2) Activediazepam 2 mg Tab 2 mg = 1 tab(s), Oral, BIDmeclizine 25 mg Tab 25 mg = 1 tab(s), PRN, Oral, TID, Medications (5) ActiveScheduled: (0)Continuous: (0)PRN: (5)acetaminophen 325 mg Tab UD [F] 650 mg 2 tab(s), Oral, [id number] 2 mg/mL Inj [F] 1 mg 0.5 mL, IV Push, Oncemeclizine 25 mg Tab [F] 25 mg 1 tab(s), Oral, c1yrbnfsekrn 2 mg/mL preservative-free SOLN [F] 1 mg 0.5 mL, IV Push, Onceondansetron 2 mg/mL Inj [F] 4 mg 2 mL, IV Push, q6hr Objective Vitals Signs (last 24 hrs) Last Charted Minimum MaximumTemp 36.6 (JUN 11 08:21) 36.4 (JUN 11 03:45) 36.8 (JUN 10 19:44)Heart Rate L 49 (JUN 11 11:35) L 49 (JUN 11 11:35) 63 (JUN 10 16:00)Resp Rate 16 (JUN 11 11:35) 16 (JUN 11 03:45) 18 (JUN 10 16:00)SBP 121 (JUN 11 11:35) 121 (JUN 11 11:35) H 155 (JUN 11 08:21)DBP 82 (JUN 11 11:35) 72 (JUN 11 03:45) H 98 (JUN 11 08:21)MAP 95 (JUN 11 11:35) 89 (JUN 11 03:45) 117 (JUN 11 08:21)SpO2 97 (JUN 11 11:35) 95 (JUN 10 19:44) 99 (JUN 10 16:00) General Physical Exam: HEENT: Skull atraumatic. Oropharynx moist and free of lesions.Heart: Normal rate and regular rhythm by pulse palpation.Abdomen: Soft, non-tender. Extremities: Pulses symmetric, no lower edema. Skin: No unusual rashes or lesions. Psych: Affect full, mood dysthymic Neurological Exam: Mental Status: Orientation was normal to time, place and self. Speech is clear. Language is intact. Cranial Nerves: CN IIVisual pearce were full to confrontation. Pupils were equal and symmetrically reactive. CN III, IV, : Extraocular motility was intact. No nystagmus. CN V: Facial sensation intact. CN VII: Muscles of facial expression were strong and symmetric. CN VIII: Hearing was normal bilaterally. CN IX, X: Palate elevates symmetrically. CN XI: Sternocleidomastoid and Trapezius normal. CN XII: Tongue protrudes midline. Motor: Normal tone with no involuntary movements or pronator drift. Strength: Upper Extremities(R/L): Proximal 5/5 Distal 5/5 Lower Extremities (R/L): Proximal 5/5 Distal 5/5 Sensation: Intact to light touch sensation in the upper and lower extremities bilaterally. Reflexes: (R/L)symmetri, trace in B/L LEs, 1+ in B/L UEs.Plantar responses downgoing bilaterally. Coordination: Finger to nose normal. Gait: Deferred Review / Management Results review: Labs (Last four charted values)Hgb 14.6 (JUN 11) 13.5 (JUN 10) 14.2 (JUN 09) Hct 43.0 (JUN 11) 40.2 (JUN 10) 42.1 (JUN 09) Cr 1.0 (JUN 11) 1.0 (JUN 10) 1.0 (JUN 09) . Impression and Plan Diagnosis: Complaint of Dizziness (PNED [id number], Reason For Visit, Medical), Vertigo ([id number], Discharge, Medical). Assessment:Neeraj is a 52 yo M with some cv risk factors who presnted with dizziness which has worsed over the past 2 weeks. The dizziness is not as concerning as the reported rest of the history with weightloss, night sweats, blurred vision and difficuty with imbalance while ambulating. It is reassuring that he has a normal neurological exam, however.Spent an hour of time in counseling at bedside with patient and family today. We reviewed his history and the unremarkable results of his MRIs. Additonally, he noted that he had an epsiode of self-limited left foot drop 5 years ago and only a year ago saw Dr. Cartagena of neurology for his B/L UE elbow stiffiness, these dont really llook like contracture so I am unclear if this is rheumatological etc in nature. Howevber, he will undergo MRI c-spine today. Addiotnally, he noted that the EMG/NCS of his UEs was unremarkable. Of most interesting note, he said that he was treated here in the ICU for multiple days and noted to have a lung nodule etc with a complicated hopsital course which included an LP which he found to be rather a traumatic experience that in the [facility].Plan:-MRI brain w/wo and c-spine w/wo: unremarkable-orthostatic by vs testing, but mostly aysomptomatic. We discussed behavioral modification.-LP was completed under x-ray.-referral to [facility] for opthamology, rheumatology and neurology. Normal [facility] Comment on above: Result Comment: Elec tronically Signed By: Caren GORE, Shannon\.br\Date and Time Signed: 06/11/17 15:36 EDT Progress Note-Physician Patient: NEERAJ LARA Age: 52 years Sex: Male : 1965 Associated Diagnoses: None Author: Sherie Partida Basic Information 52 year old Caucasion male with no past medical history presented to the ED with complaints of increasing dizziness, lightheadedness; States that has symptoms are noted both at rest and with movment but worsens with bending over. 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 Notices increase in cervical pain. Does have noted limited flexion of neck with decreased ROM to bilateral arms. Does complain of bilateral arm weakness with numbness and tingling from elbows to hands. CT Head in ED was negative. Patient will be admitted to hospitalist group for further work up and neurology consultation. Subjective Up in room this morning. Flat affect this morning but is cooperative with exam. Complaints of bilateral arm pain and weakness. States has had some dizziness since admission and notices this more with movement of head and neck. Denies chest pain or shortenss of breath. Complains of numbness to bilateral fingers. burning pain to bilateral elbows. Health Status Allergies: Allergic Reactions (Selected)No Known Allergies Current medications: Medications (4) ActiveScheduled: (1)aspirin 81 mg Oral EC Tab [F] 81 mg 1 tab(s), Oral, DailyContinuous: (0)PRN: (3)acetaminophen 325 mg Tab UD [F] 650 mg 2 tab(s), Oral, m9ljhxqiiclmf 25 mg Tab [F] 25 mg 1 tab(s), Oral, o4zyenlfngshyrj 2 mg/mL Inj [F] 4 mg 2 mL, IV Push, q6hr Problem list: All ProblemsPotential for deficient knowledge of cerebrovascular accident (CVA) / IMO [id number] / Possibleproblem added based on Stroke Powerplan ordered.Corneal abrasion / ICD-9-CM 918.1 / Confirmed Histories Past Medical History: No active or resolved past medical history items have been selected or recorded. Family History: HypertensionMotherDiabetes mellitus type 2FatherMotherStrokeMother Procedure history: Arthroscopy of knee joint ([id number]).Appendectomy ([id number]).Tonsillectomy ([id number]).tumor removed frombackof head.tumor removed from left jaw line. Social History Social & Psychosocial KhtwrbPhmwfpk76/02/2017 Risk Assessment: Denies Alcohol UseSubstance Abuse06/09/2017 Risk Assessment: Denies Substance LydhmXzhomei17/02/2017 Risk Assessment: Denies Tobacco Use. Objective Vitals Signs (last 24 hrs) Last Charted Minimum MaximumTemp 36.7 (JUN 10 12:00) 36.5 (JUN 10 03:06) 36.8 (JUN 09 23:41)Heart Rate L 51 (JUN 10 12:00) L 46 (JUN 10 08:00) 85 (JUN 09 20:49)Resp Rate 20 (JUN 10 12:00) 16 (JUN 09 20:48) 20 (JUN 10 12:00)SBP 136 (JUN 10 12:00) 119 (JUN 09 20:47) 136 (JUN 10 12:00)DBP 90 (JUN 10 12:00) 71 (JUN 09 23:41) 90 (JUN 10 12:00)MAP 105 (JUN 10 12:00) 91 (JUN 09 23:41) 105 (JUN 10 12:00)SpO2 96 (JUN 10 12:00) 96 (JUN 09 20:49) 98 (JUN 10 03:06) General: Alert and oriented, No acute distress. Appearance: Calm. Behavior: Appropriate, Cooperative. Skin: Normal for ethnicity. Eye: Pupils are equal, round and reactive to light, Extraocular movements are intact, Normal conjunctiva. HENT: Normocephalic, Normal hearing, Oral mucosa is moist. Neck: Supple. Respiratory: Lungs are clear to auscultation, Respirations are non-labored, Symmetrical chest wall expansion. Cardiovascular: 50 beats per minute, Regular rhythm, Bradycardia, Good pulses equal in all extremities, No edema. Gastrointestinal: Soft, Non-tender, Normal bowel sounds. Genitourinary: No inguinal tenderness. Musculoskeletal Upper extremity exam: arm (bilateral, numbness, tingling, strength 5 /5, range of motion, limited ROM difficulty lifting arm. unable to life overhead. ), forearm (bilateral, numbness, tingling, range of motion (diminished, restricted by pain), limited with movement. ), fingers (bilateral, fourth finger, fifth finger, numbness and tingling). Spine/torso exam: cervical limited flex with normal extentsion. . Neurologic: Alert, Oriented, Cranial Nerves II-XII are grossly intact. Orientation: Oriented X 4. NIH Stroke Scale: Level of consciousness ( Alert = 0 ), Ask patient current month and age ( Answers both correctly = 0 ), Ask patient to open and close eyes ( Obeys both correctly = 0 ), Best gaze ( Normal = 0 ), Visual field testing ( No visual field loss = 0 ), Facial paresis ( Normal symmetric movement = 0 ), Motor function left arm ( Normal = 0, difficulty lifting arms but not new. ), Motor function right arm ( Normal = 0, difficulty lifting arms but not new. ), Motor function left leg ( Normal = 0 ), Motor function right leg ( Normal = 0 ), Limb ataxia ( No ataxia = 0 ), Sensory ( Normal = 0 ), Best language ( No aphasia = 0 ), Dysarthria ( Normal articulation = 0 ), Extinction and inattention ( Normal = 0 ), Total score 0. Cognition and Speech: Oriented, Speech clear and coherent. Psychiatric: Cooperative, Appropriate mood & affect. Integumentary: Warm, Dry, [place], Intact. Review / Management Results review: All Results 06/10/2017 06:13 EDT WBC 6.6 E9/L RBC 4.3 E12/L Hgb 13.5 gm/dL Hct 40.2 % MCV 93.5 fL MCH 31.3 pg MCHC 33.5 gm/dL RDW 12.9 % Platelet 255.0 E9/L MPV 8.4 fL Neutro Auto 54.2 % Lymph Auto 36.3 % [place] Auto 5.7 % Eos Auto 3.3 % Basophil Auto 0.5 % Neutro Absolute 3.6 E9/L Lymph Absolute 2.4 E9/L [place] Absolute 0.4 E9/L Eos Absolute 0.2 E9/L Basophil Absolute 0.0 E9/L PT 10.2 second(s) INR 0.94 NA PTT 25.9 second(s) Glucose Lvl 99 mg/dL BUN 13 mg/dL Creatinine 1.0 mg/dL eGFR >60 mL/min/1.73 m2 eGFR AA >60 mL/min/1.73 m2 BUN/Creat Ratio 13 Sodium Lvl 139 mmol/L Potassium Lvl 3.9 mmol/L Chloride 112 mmol/L HI CO2 23 mmol/L AGAP 8 mEq/L Calcium Lvl 8.8 mg/dL LOW Magnesium 1.8 mg/dL Chol 170 mg/dL Trig 183 mg/dL HI HDL 33 mg/dL NA LDL Direct 100 mg/dL VLDL 37 mg/dL TSH 3.96 mcIU/mL 06/09/2017 06:03 EDT WBC 6.6 E9/L RBC 4.5 E12/L Hgb 14.2 gm/dL Hct 42.1 % MCV 93.8 fL MCH 31.6 pg MCHC 33.7 gm/dL RDW 13.0 % Platelet 274.0 E9/L MPV 8.4 fL Neutro Auto 55.4 % Lymph Auto 35.3 % [place] Auto 6.0 % Eos Auto 2.8 % Basophil Auto 0.5 % Neutro Absolute 3.7 E9/L Lymph Absolute 2.3 E9/L [place] Absolute 0.4 E9/L Eos Absolute 0.2 E9/L Basophil Absolute 0.0 E9/L Glucose Lvl 105 mg/dL BUN 14 mg/dL Creatinine 1.0 mg/dL eGFR >60 mL/min/1.73 m2 eGFR AA >60 mL/min/1.73 m2 BUN/Creat Ratio 14 Sodium Lvl 139 mmol/L Potassium Lvl 3.5 mmol/L Chloride 109 mmol/L CO2 24 mmol/L AGAP 10 mEq/L Calcium Lvl 8.8 mg/dL LOW . * Final Report *Reason For ExamTIAPOWERSCRIBE REPORTIMPRESSION: NEGATIVE MRA STUDY OF THE HEAD. CLINICAL HISTORY: TIA. Nausea. Lightheaded. Dizzy.COMMENT: Unenhanced images were obtained. The distal vertebral arteries bilaterally, the basilar artery, the distal internalcarotid arteries bilaterally, the vessels of the [place] of [place], and visualizedcentral portions of the anterior, middle, and posterior cerebral arteries appearnormal. No significant stenosis and no aneurysm are noted. Signature Line FINAL REPORT Dictated: 06/10/2017 8:12 am Erik Ortiz M.D. LSigned (Electronic Signature): 06/10/2017 8:12 amSigned by: Erik Ortiz M.D. LTranscribed by: TITO Technologist: LASHONDA CALIXTOThis document has an imageResult type: MRA Head w/o ContrastResult date: June 09, 2017 16:29 EDTResult status: Auth (Verified)Result title: MRA Head w/o ContrastPerformed by: Erik Ortiz M.D. on June 10, 2017 08:12 EDTVerified by: Erik Ortiz M.D. on June 10, 2017 08:12 EDTEncounter info: [id number], Yonny Mack, Observation, 06/09/2017 - * Final Report *Reason For ExamTIAPOWERSCRIBE REPORTIMPRESSION: SMALL NONSPECIFIC SUBCORTICAL CEREBRAL WHITE MATTER FOCI. OTHERWISENEGATIVE MRI OF THE BRAIN.CLINICAL HISTORY: TIA. Lightheadedness. Dizziness. COMMENT: Unenhanced and intravenous contrast enhanced images were obtained. The ventricles and basal cisterns appear normal. The cortical sulci appear normal.There is no mass effect nor midline shift. On FLAIR images, there are a few smallfocal areas of increased signal intensity involving subcortical frontal white matterbilaterally and there is a small focus of the increased signal intensity involvingsubcortical right parietal white matter. These findings are nonspecific, but may bedue to small vessel ischemic changes. No other signal intensity changes within thebrain are noted. No abnormal contrast enhancement within the brain is noted. There isno evidence of recent infarction on the diffusion weighted images. No mass lesion isevident. Signature Line FINAL REPORT Dictated: 06/10/2017 8:11 am Erik Ortiz M.D. LSigned (Electronic Signature): 06/10/2017 8:11 amSigned by: Erik Ortiz M.D. LTranscribed by: TITO Technologist: KACTechnical CommentsMultiHance Contrast amount in ml's: 200 RAD REPORTThis document has an imageResult type: MRI Brain w/ + w/o ContrastResult date: June 09, 2017 16:48 EDTResult status: Auth (Verified)Result title: MRI Brain w/ + w/o ContrastPerformed by: Erik Ortiz M.D. on June 10, 2017 08:11 EDTVerified by: Erik Ortiz M.D. on June 10, 2017 08:11 EDTEncounter info: [id number], Yonny Mack, Observation, 06/09/2017 - * Final Report *Reason For ExamVertigoPOWERSCRIBE REPORTIMPRESSION: NEGATIVE STUDY. NO EVIDENCE OF SIGNIFICANT STENOSIS.CLINICAL HISTORY: TIA. Vertigo. Nausea. Lightheaded. Dizzy.COMMENT: No plaques are identified at the carotid bifurcation. There is antegradeblood flow in the right and left vertebral arteries in the neck. On Doppler images,the peak systolic velocity measurements in centimeters per second are as follows: Right proximal common carotid artery is 105.0 / 27.5, right distal common carotid artery is 104.0 / 30.6, right proximal internal carotid artery is 84.1 / 23.6, right mid internal carotid artery is 95.9 / 36.1, right distal internal carotid artery is 95.1 / 34.6, right external carotid artery is 112.0 cm/s, left proximal common carotid artery is 116.0 / 31.4, left distal common carotid artery is 95.9 / 29.9, left proximal internal carotid artery is 68.4 / 25.9, left mid internal carotid artery is 88.8 / 32.2, left distal internal carotid artery is 84.9 / 29.9, left external carotid artery is 113.0 cm/s. The peak systolic internal carotid to common carotid artery ratio on the right is 0.9and on the left is 0.9. Validated velocity measurements with angiographic measurements, velocity criteria areextrapolated from diameter data as defined by the Society of Radiologist inUltrasound Consensus Conference Radiology 2003; 229;340-346.Signature Line FINAL REPORT Dictated: 06/10/2017 8:16 am Erik Ortiz M.D. LSigned (Electronic Signature): 06/10/2017 8:16 amSigned by: Erik Ortiz M.D. LTranscribed by: TITO Technologist: KRTechnical CommentsVelocities Right ICA/CCA 0.9 Prox CCA (cm/sec): 105/28 Distal CCA (cm/sec): 104/31 Bifurcation (cm/sec): 103/31 Prox ICA (cm/sec): 84/24 Mid ICA (cm/sec): 96/36 Distal ICA (cm/sec): 95/35 Prox ECA (cm/sec): 112/27 Vert. Antegrade Yes Velocities Left ICA/CCA 0.9 Prox CCA (cm/sec): 116/31 Distal CCA (cm/sec): 96/30 Bifurcation (cm/sec): 101/33 Prox ICA (cm/sec): 68/26 Mid ICA (cm/sec): 89/32 Distal ICA (cm/sec): 85/30 Prox ECA (cm/sec): 113/24 Vert. Antegrade Yes RAD REPORTThis document has an imageResult type: US Carotid Duplex BilateralResult date: June 09, 2017 17:29 EDTResult status: Auth (Verified)Result title: US Carotid Duplex BilateralPerformed by: Erik Ortiz M.D. on June 10, 2017 08:16 EDTVerified by: Erik Ortiz M.D. on June 10, 2017 08:16 EDTEncounter info: [id number], Yonny - Frederick, Observation, 06/09/2017 - * Final Report *Reason For ExamRadiculopathyPOWERSCRIBE REPORTIMPRESSION: BROAD-BASED EXTRUDED DISC AT C5-C6 RIGHT SIDE.CLINICAL HISTORY: SyncopeCOMPARISON: None.FINDINGS: Unenhanced scans were obtained. T1 and T2-weighted sagittal and axialsequences and a gradient echo axial sequence were acquired. A STIR sagittal sequenceis included.The vertebral bodies are normal in signal and normal in height. There is mild discdesiccation in the mid cervical spine. At C5-C6 there is extruded disc in the right subarticular zone effacing the thecalsac right side of the midline and compromising the C6 nerve root foramen.At C6-C7 there is a small central bulging disc noted without compromise of theposterior normal structures.There is no evidence of central canal stenosis. No disc herniation seen from [id number] C4. No disc herniation at C7.Cervical cord normal in caliber and signal. Paraspinal and prevertebral soft tissuesunremarkableSignature Line FINAL REPORT Dictated: 06/10/2017 2:54 pm Sandeep Elias MDSigned (Electronic Signature): 06/10/2017 2:54 pmSigned by: Sandeep Elias MDTranscribed by: TITO Technologist: KESHAWN REPORTThis document has an imageResult type: MRI Spine Cervical w/o ContrastResult date: June 10, 2017 13:12 EDTResult status: Auth (Verified)Result title: MRI Spine Cervical w/o ContrastPerformed by: Sandeep Elias MD on June 10, 2017 14:54 EDTVerified by: Sandeep Elias MD on June 10, 2017 14:54 EDTEncounter info: [id number], Yonny Mack, Observation, 06/09/2017 - * Final Report *Reason For ExamTIAPOWERSCRIBE REPORTImpression: Negative MRA of the neck.Clinical history: SyncopeTECHNIQUE: Unenhanced scans were obtained. MIP reconstructions after phlb-sa-cgkawdtulxolojdsp were acquired. Source images are reviewed.FINDINGS: The common carotid arteries and carotid bifurcations are widely patentbilaterally. The vertebral arteries are codominant and patent. No significant stenosis in the extracranial carotid vasculature.Signature Line FINAL REPORT Dictated: 06/10/2017 3:01 pm Sandeep Elias MDSigned (Electronic Signature): 06/10/2017 3:01 pmSigned by: Sandeep Elias MDTranscribed by: TITO Technologist: KESHAWN REPORTThis document has an imageResult type: MRA Neck w/o ContrastResult date: June 10, 2017 13:53 EDTResult status: Auth (Verified)Result title: MRA Neck w/o ContrastPerformed by: Sandeep Elias MD on June 10, 2017 15:01 EDTVerified by: Sandeep Elias MD on June 10, 2017 15:01 EDTEncounter info: [id number], Yonny - Frederick, Observation, 06/09/2017 - Impression and Plan Course: Progressing as expected. 52 year old Caucasion male with no past medical history presented to the ED with complaints of increasing dizziness, lightheadedness; States that has symptoms are noted both at rest and with movment but worsens with bending over. 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 Notices increase in cervical pain. Does have noted limited flexion of neck with decreased ROM to bilateral arms. Does complain of bilateral arm weakness with numbness and tingling from elbows to hands. CT Head in ED was negative. Patient will be admitted to hospitalist group for further work up and neurology consultationPLAN: Dizziness with lightheadedness differentials include TIA/CVA, BPPV, cervical stenosis vs autoimmune-Fernando Hallpike negative; -Increased complaints at rest and with movement- increases with bending over -Does have limited ROM to bilateral arms on exam with complaints of weakness,numbness/tingling.-CT Head -negative -Consult Neurology - -impression and plan appreciated Patient has reported recent history with weightloss, night sweats, blurred vision and difficuty with imbalance while ambulating..?Patient pending lumbar puncture in a.m.-Orthostatic vitals -pending-MRI/MRA brain- both negative-MRI cervical spine-Notes broad-based extruded disc at C5-6 on right side. No cervical cord impingement noted.?Scans reviewed by Dr. Raoul Barlow-orthospine- no surgical intervention needed.-ECHO- pending-Carotid US -notes no bsvlzalv-Tyijqdmnm-Ntktq sinus bradycardia.-EKG notes bradycardia ? symptomatic. -Start Aspirin 81mg daily-Continue Meclizine prn -Lipid pangel- normal-Tox screen/U/A - negative--Follows labs. -PT/OT to eval, treat. Recommending outpatient therapies.DVT Prophylaxis: Heparin sq on hold for LP in AM. Dispositon: Will continue with observation status at this time patient will be greater than 2 midnight stays however do not have definitive diagnosis. Continue workup with neurology patient pending lumbar puncture in a.m. Education and Follow-up: Counseled: Patient, Regarding diagnosis, Regarding treatment, Regarding medications. Normal [facility] Comment on above: Result Comment: Elec tronically Signed By: Sherie Partida\.br\Date and Time Signed: 06/10/17 15:44 EDT\.br\Electronically Co-Signed By: Heladio Castaneda MD\.br\Date and Time Co-Signed: 06/11/17 07:07 EDT RF-XR Lumbar Puncture Diagno stic IMPORTon 06-11-2017 RF-XR Lumbar Puncture Diagnostic IMPORT Images were obtained outside of [facility] [id number] Normal [facility] XR Lumbar Puncture Diagnosti con 06-11-2017 XR Lumbar Puncture Diagnostic Exam Date/Time:06/11/2017 11:15 EDTReason for Exam:Other (please specify)ReportIMPRESSION: SUCCESSFUL AND UNEVENTFUL DIAGNOSTIC LP WITH FLUOROSCOPIC GUIDANCE.CLINICAL HISTORY: HEADACHE, DIZZINESS AND WEAKNESSCOMPARISONS: None available.COMMENT: DIAGNOSTIC LUMBAR PUNCTURE WITH FLUOROSCOPIC GUIDANCE.After appropriate sterile skin preparation and local anesthesia, a 20-gauge spinalneedle was introduced into the lumbar subarachnoid space at the L3/L4 level withfluoroscopic guidance. Subsequently, approximately 13 cc of clear CSF was drainedfrom the lumbar subarachnoid space without difficulty. The CSF was sent to thelaboratory for analysis. The patient tolerated procedure well and was returned to thenursing unit in satisfactory stable condition.(Number of films: 1 and fluoroscopy time: 72 seconds) FINAL REPORT Dictated: 06/11/2017 1:17 pm Lazaro Henderson MD Signed (Electronic Signature): 06/11/2017 1:17 pm Signed by: Lazaro Henderson MD Transcribed by: TITO Technologist: SHIREENFTechnical CommentsFluoro Time: 1 min 12 sec Normal [facility] eGFRon 06-11-2017 eGFR (black) mL/min/{1.73_m2} Normal >=59 [facility] Comment on above: Order Comment: Order added by [facility]. Result Comment: eGFR is race adjusted. AA=. Performed By: #### 2 [id number], [id number], 1834450, [id number] ####[address] [place] [address] eGFR (non-black) mL/min/{1.73_m2} Normal >=59 [facility] Comment on above: Order Comment: Order added by [facility]. Result Comment: Powerbuilder laura kidney disease could be indicated at eGFR's of less than 60 mL/min/1.73m2. Kidney failure is indicated at less than 15 mL/min/1.73m2. Performed By: #### 2 163542, [id number], 8383054, 9090522 ####[facility] [address] [place] [address] Auto Diffon 06-10-2017 Basophils Auto #/vol (Bld) 0.0 E9/L Normal 0.0-0.2 [facility] Comment on above: Order Comment: Order Added by [facility]. Performed By: #### 2 289134, [id number], 7587867, 6429938 ####[address] [place] [address] Basophils Auto #/vol (Bld) 0.5 % Normal 0.0-2.0 [facility] Comment on above: Order Comment: Order Added by [facility]. Performed By: #### 2 874732, [id number], 2661165, 2865257 ####[address] [place] [address] Eosinophils 0.2 E9/L Normal 0.0-0.5 [facility] Comment on above: Order Comment: Order Added by [facility]. Performed By: #### 2 210461, 45241026, 9717609, 9322578 ####[facility] [address] [facility] [facility] [place] [address] Eosinophils/100 leukocytes 3.3 % Normal 0.0-8.0 [facility] Comment on above: Order Comment: Order Added by [facility]. Performed By: #### 2 785899, 79523655, 1402105, 4225127 ####[facility] [address] [place] [address] Lymphocytes 2.4 E9/L Normal 1.0-4.0 [facility] Comment on above: Order Comment: Order Added by [facility] Expert. Performed By: #### 2 415552, 81746396, 3103382, 3229419 ####[facility] [address] [facility] [place] [address] Lymphocytes/100 leukocytes 36.3 % Normal 14.0-50.0 [facility] Comment on above: Order Comment: Order Added by [facility]. Performed By: #### 2 406472, 50871433, 2176560, 2100988 ####[facility] [address] [facility] [place] [address] Monocytes 0.4 E9/L Normal 0.2-1.0 [facility] Comment on above: Order Comment: Order Added by [facility]. Performed By: #### 2 175375, 54444794, 7109407, 2264004 ####[facility] [address] [place] [address] Monocytes/100 leukocytes 5.7 % Normal 4.0-14.0 [facility] Comment on above: Order Comment: Order Added by [facility] Expert. Performed By: #### 2 579134, 33497626, 2388466, 9435218 ####[facility] [address] [facility] [place] [address] Neutrophils 3.6 E9/L Normal 2.0-7.5 [facility] Comment on above: Order Comment: Order Added by [facility]. Performed By: #### 2 130932, 39951352, 5232866, 7094281 ####[facility] [address] [place] [address] Neutrophils/100 leukocytes 54.2 % Normal 36.0-75.0 [facility] Comment on above: Order Comment: Order Added by [facility] Expert. Performed By: #### 2 869403, 51748614, 6749138, 7975075 ####[facility] [address] [place] [address] BMPon 06-10-2017 Anion gap 8 mmol/L Normal 6-16 [facility] Comment on above: Performed By: #### 2 710587, 92669039, 0663895, 9827334 ####[facility] [address] [place] [address] BUN/Creatinine Ratio 13 No Units Normal 10-20 [facility] Comment on above: Performed By: #### 2 024670, 47512047, 4070742, 1390507 ####[facility] [address] [place] [address] Calcium 8.8 mg/dL Low 8.9-11.1 [facility] Comment on above: Performed By: #### 2 233405, 33534912, 0260799, 7653166 ####[facility] [address] [place] [address] Chloride 112 mmol/L High 101-111 [facility] Comment on above: Performed By: #### 2 231681, 35686980, 2285903, 6499016 ####[facility] [address] [place] [address] CO2 23 mmol/L Normal 21-31 [facility] Comment on above: Performed By: #### 2 169355, 69558412, 9535164, 4375085 ####[facility] [address] [place] [address] Creatinine 1.0 mg/dL Normal 0.5-1.3 [facility] Comment on above: Performed By: #### 2 664321, 64192964, 7962916, 1353756 ####[facility] [address] [place] [address] Glucose mass conc 99 mg/dL Normal 55-199 [facility] Comment on above: Result Comment: If t his glucose result represents a fasting glucose, interpretation should refer to the following reference range: 55-99 mg/dL Performed By: #### 2 494587, 83435543, 1313570, 5524832 ####[facility] [address] [place] [address] Potassium molar conc 3.9 mmol/L Normal 3.5-5.3 [facility] Comment on above: Performed By: #### 2 786305, 24692878, 6135146, 2295717 ####[facility] [address] [place] [address] Sodium 139 mmol/L Normal 135-145 [facility] Comment on above: Performed By: #### 2 312993, 17477527, 6007298, 5653764 ####[facility] [address] [place] [address] Urea nitrogen 13 mg/dL Normal 5-21 [facility] Comment on above: Performed By: #### 2 034979, 77977994, 5868166, 1311945 ####[facility] [address] [place] [address] CBC w/ Auto Diffon Erythrocyte distribution width Auto Ratio (RBC) 12.9 % Normal 10.9-14.2 [facility] Comment on above: Performed By: #### 2 202995, 98537141, 5603887, 9439795 ####[facility] [address] [place] [address] Erythrocytes (RBC) 4.3 E12/L Normal 4.3-5.9 [facility] Comment on above: Performed By: #### 2 911286, 91418407, 0866056, 9547291 ####[facility] [address] [place] [address] Hematocrit (HCT) 40.2 % Normal 37.7-49.0 [facility] Comment on above: Performed By: #### 2 272514, 65695250, 4830586, 2594726 ####[facility] [address] [place] [address] Hemoglobin mass conc (Bld) 13.5 g/dL Normal 13.5-17.5 [facility] Comment on above: Performed By: #### 2 795704, 77516529, 1439430, 6689876 ####[address] [place] [address] MCH 31.3 pg Normal 27.0-34.0 [facility] Comment on above: Performed By: #### 2 838072, 70673385, 2685937, 3573732 ####[address] [address] MCHC mass conc (RBC) 33.5 g/dL Normal 31.4-39.3 [facility] Comment on above: Performed By: #### 2 041149, 33282173, 0922232, 4147003 ####[address] [address] MCV 93.5 fL Normal 80.0-100.0 [facility] Comment on above: Performed By: #### 2 308560, 06456392, 0262972, 9704144 ####[address] [address] Platelet mean volume (PMV) 8.4 fL Normal 6.4-10.8 [facility] Comment on above: Performed By: #### 2 629021, 06562047, 7359664, 3029042 ####[facility] [address] [place] [address] Platelets 255.0 E9/L Normal 150.0-500. 0 [facility] Comment on above: Performed By: #### 2 827636, 17954905, 1085719, 9602946 ####[facility] [address] [place] [address] WBC (Leukocytes) 6.6 E9/L Normal 4.0-11.0 [facility] Comment on above: Performed By: #### 2 066332, 60786462, 2657415, 1805053 ####[address] [place] [address] Consultation Noteon 06-10-20 Consultation Note Patient: Emili LARA Age: 52 years Sex: Male : 1965 Associated Diagnoses: None Author: Shannon Fabian MD Subjective Spent an hour of time in counseling at bedside with patient and family today. We reviewed his history and the unremarkable results of his MRIs. Additonally, he noted that he had an epsiode of self-limited left foot drop 5 years ago and only a year ago saw Dr. Cartagena of neurology for his B/L UE elbow stiffiness, these dont really llook like contracture so I am unclear if this is rheumatological etc in nature. Howevber, he will undergo MRI c-spine today. Addiotnally, he noted that the EMG/NCS of his UEs was unremarkable. Of most interesting note, he said that he was treated here in the ICU for multiple days and noted to have a lung nodule etc with a complicated hopsital course which included an LP which he found to be rather a traumatic experience that in the [place]. Review of Systems As per subjective, all others negative. Health Status Current medications: Home Medications (2) Activediazepam 2 mg Tab 2 mg = 1 tab(s), Oral, BIDmeclizine 25 mg Tab 25 mg = 1 tab(s), PRN, Oral, TID, Medications (5) ActiveScheduled: (2)aspirin 81 mg Oral EC Tab [F] 81 mg 1 tab(s), Oral, Dailyheparin 5,000 units/mL Inj [F] 5,000 unit(s) 1 mL, SubCutaneous, BIDContinuous: (0)PRN: (3)acetaminophen 325 mg Tab UD [F] 650 mg 2 tab(s), Oral, v4svhyojfebtm 25 mg Tab [F] 25 mg 1 tab(s), Oral, g2umolkkryhzihg 2 mg/mL Inj [F] 4 mg 2 mL, IV Push, q6hr Objective Vitals Signs (last 24 hrs) Last Charted Minimum MaximumTemp 36.7 (JUN 10 12:00) 36.5 (JUN 10 03:06) 36.8 (JUN 09 23:41)Heart Rate L 51 (JUN 10 12:00) L 46 (JUN 10 08:00) 85 (JUN 09 20:49)Resp Rate 20 (JUN 10 12:00) 16 (JUN 09 15:16) 20 (JUN 10 12:00)SBP 136 (JUN 10 12:00) 119 (JUN 09 20:47) 136 (JUN 10 12:00)DBP 90 (JUN 10 12:00) 71 (JUN 09 23:41) 90 (JUN 10 12:00)MAP 105 (JUN 10 12:00) 91 (JUN 09 23:41) 105 (JUN 10 12:00)SpO2 98 (JUN 10 08:00) 96 (JUN 09 20:49) 98 (JUN 10 03:06) General Physical Exam: HEENT: Skull atraumatic. Oropharynx moist and free of lesions.Heart: Normal rate and regular rhythm by pulse palpation.Abdomen: Soft, non-tender. Extremities: Pulses symmetric, no lower edema. Skin: No unusual rashes or lesions. Psych: Affect full, mood dysthymic Neurological Exam: Mental Status: Orientation was normal to time, place and self. Speech is clear. Language is intact. Cranial Nerves: CN IIVisual pearce were full to confrontation. Pupils were equal and symmetrically reactive. CN III, IV, : Extraocular motility was intact. No nystagmus. CN V: Facial sensation intact. CN VII: Muscles of facial expression were strong and symmetric. CN VIII: Hearing was normal bilaterally. CN IX, X: Palate elevates symmetrically. CN XI: Sternocleidomastoid and Trapezius normal. CN XII: Tongue protrudes midline. Motor: Normal tone with no involuntary movements or pronator drift. Strength: Upper Extremities(R/L): Proximal 5/5 Distal 5/5 Lower Extremities (R/L): Proximal 5/5 Distal 5/5 Sensation: Intact to light touch sensation in the upper and lower extremities bilaterally. Reflexes: (R/L)symmetri, trace in B/L LEs, 1+ in B/L UEs.Plantar responses downgoing bilaterally. Coordination: Finger to nose normal. Gait: Deferred Review / Management Results review: Labs (Last four charted values)Hgb 13.5 (JUN 10) 14.2 (JUN 09) Hct 40.2 (JUN 10) 42.1 (JUN 09) Cr 1.0 (JUN 10) 1.0 (JUN 09) . Impression and Plan Diagnosis: Dizzinesses ([id number] R42, Discharge, Medical), Vertigo ([id number] R42, Discharge, Medical). Assessment:Neeraj is a 52 yo M with some cv risk factors who presnted with dizziness which has worsed over the past 2 weeks. The dizziness is not as concerning as the reported rest of the history with weightloss, night sweats, blurred vision and difficuty with imbalance while ambulating. It is reassuring that he has a normal neurological exam, however.Spent an hour of time in counseling at bedside with patient and family today. We reviewed his history and the unremarkable results of his MRIs. Additonally, he noted that he had an epsiode of self-limited left foot drop 5 years ago and only a year ago saw Dr. Cartagena of neurology for his B/L UE elbow stiffiness, these dont really llook like contracture so I am unclear if this is rheumatological etc in nature. Howevber, he will undergo MRI c-spine today. Addiotnally, he noted that the EMG/NCS of his UEs was unremarkable. Of most interesting note, he said that he was treated here in the ICU for multiple days and noted to have a lung nodule etc with a complicated hopsital course which included an LP which he found to be rather a traumatic experience that in the [place].Plan:-f/u MRI brain and c-spine w/wo-trend orthostatic vs QID: onset positive by HR thus far other sets negative.-PT for Uvq-Wrryxjhw-qgtduea is agreeable to consider LP under radiology guidance tomorrow will nee Ativan and morphine prior, this will be to r/o other causes of intermittent diplopia, whcih is what Im taking as his discurption of his intermittent visual issues.Holding Hepain for LP anticipation tomorrow Normal [facility] Comment on above: Result Comment: Elec tronically Signed By: Shannon Fabian MD\.luke\Date and Time Signed: 06/10/17 13:51 EDT History and Physicalon 06-10 History and Physical Patient: NEERAJ LARA Age: 52 years Sex: Male : 1965 Associated Diagnoses: None Author: Sherie Partida Basic Information Accompanied by: No one. Source of history: Self. Referral source: Emergency department. History limitation: None. Chief Complaint 06/09/2017 05:48 EDT pt sts 4 am was working, works for [employer], felt light headed, dizzy, nauseas, pt sts if he bends over it gets really bad, felt like he was going to pass out, feels worse with positional changes, cardiac workups in past has been negative pt states (Modified) History of Present Illness 52 year old Caucasion male with no past medical history presented to the ED with complaints of increasing dizziness, lightheadedness; States that has symptoms are noted both at rest and with movment but worsens with bending over. 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 Notices increase in cervical pain. Does have noted limited flexion of neck with decreased ROM to bilateral arms. Does complain of bilateral arm weakness with numbness and tingling from elbows to hands. CT Head in ED was negative. Patient will be admitted to hospitalist group for further work up and neurology consultation. Review of Systems Constitutional: Negative. Eye: Negative. Ear/Nose/Mouth/Throat: Negative. Respiratory: Negative. Cardiovascular: Negative. Gastrointestinal: No nausea, No vomiting, No diarrhea, No constipation. Genitourinary: Negative. Hematology/Lymphatics: Negative. Endocrine: Negative. Immunologic: Negative. Musculoskeletal: Neck pain, Muscle pain, Decreased range of motion. Integumentary: Negative. Neurologic: Alert and oriented X4, Numbness, Tingling, Dizziness, Vertigo. Psychiatric: No anxiety, No depression. Health Status Allergies: Allergic Reactions (Selected)No Known Allergies Current medications: Medications (5) ActiveScheduled: (2)aspirin 81 mg Oral EC Tab [F] 81 mg 1 tab(s), Oral, Dailyheparin 5,000 units/mL Inj [F] 5,000 unit(s) 1 mL, SubCutaneous, BIDContinuous: (1)Sodium Chloride 0.9% 1,000 mL 1,000 mL, IVPRN: (2)acetaminophen 325 mg Tab UD [F] 650 mg 2 tab(s), Oral, j7xmobxoneahwba 2 mg/mL Inj [F] 4 mg 2 mL, IV Push, q6hr Problem list: All ProblemsPotential for deficient knowledge of cerebrovascular accident (CVA) / IMO [id number] / Possibleproblem added based on Stroke Powerplan ordered.Corneal abrasion / ICD-9-CM 918.1 / Confirmed Histories Past Medical History: No active or resolved past medical history items have been selected or recorded. Family History: No family history items have been selected or recorded. Procedure history: No active procedure history items have been selected or recorded. Social History Social & Psychosocial HmpulrDsqlebi55/02/2017 Risk Assessment: Denies Alcohol UseSubstance Abuse06/09/2017 Risk Assessment: Denies Substance YijzkCewkxrp20/02/2017 Risk Assessment: Denies Tobacco Use. Physical Examination Vitals Signs (last 24 hrs) Last Charted Minimum MaximumTemp 36.5 (JUN 09 09:54) 36.4 (JUN 09 05:48) 36.5 (JUN 09 09:54)Heart Rate L 47 (JUN 09 09:54) L 43 (JUN 09 08:01) L 59 (JUN 09 05:48)Resp Rate 16 (JUN 09 09:54) 10 (JUN 09 08:01) 18 (JUN 09 05:48)SBP 138 (JUN 09 09:54) 133 (JUN 09 08:59) H 146 (JUN 09 05:48)DBP 81 (JUN 09 09:54) 81 (JUN 09 09:54) H 93 (JUN 09 08:01)MAP 104 (JUN 09 08:59) 104 (JUN 09 08:59) 108 (JUN 09 08:01)SpO2 99 (JUN 09 09:54) 96 (JUN 09 06:42) 99 (JUN 09 08:01) General: Alert and oriented, No acute distress. Appearance: Calm. Behavior: Appropriate, Cooperative. Skin: Normal for ethnicity. Eye: Pupils are equal, round and reactive to light, Extraocular movements are intact, Normal conjunctiva. HENT: Normocephalic, Normal hearing, Oral mucosa is moist. Neck: Supple. Respiratory: Lungs are clear to auscultation, Respirations are non-labored, Symmetrical chest wall expansion. Cardiovascular: 50 beats per minute, Regular rhythm, Bradycardia, Good pulses equal in all extremities, No edema. Gastrointestinal: Soft, Non-tender, Normal bowel sounds. Genitourinary: No inguinal tenderness. Musculoskeletal Upper extremity exam: arm (bilateral, numbness, tingling, strength 5 /5, range of motion, limited ROM difficulty lifting arm. unable to life overhead. ), forearm (bilateral, numbness, tingling, range of motion (diminished, restricted by pain), limited with movement. ), fingers (bilateral, fourth finger, fifth finger, numbness and tingling). Spine/torso exam: cervical limited flex with normal extentsion. . Neurologic: Alert, Oriented, Cranial Nerves II-XII are grossly intact. Orientation: Oriented X 4. NIH Stroke Scale: Level of consciousness ( Alert = 0 ), Ask patient current month and age ( Answers both correctly = 0 ), Ask patient to open and close eyes ( Obeys both correctly = 0 ), Best gaze ( Normal = 0 ), Visual field testing ( No visual field loss = 0 ), Facial paresis ( Normal symmetric movement = 0 ), Motor function left arm ( Normal = 0, difficulty lifting arms but not new. ), Motor function right arm ( Normal = 0, difficulty lifting arms but not new. ), Motor function left leg ( Normal = 0 ), Motor function right leg ( Normal = 0 ), Limb ataxia ( No ataxia = 0 ), Sensory ( Normal = 0 ), Best language ( No aphasia = 0 ), Dysarthria ( Normal articulation = 0 ), Extinction and inattention ( Normal = 0 ), Total score 0. Cognition and Speech: Oriented, Speech clear and coherent. Psychiatric: Cooperative, Appropriate mood & affect. Integumentary: Warm, Dry, [place], Intact. Health Maintenance Flu and pneumonia vaccinations as appropriate. Review / Management Results review: Labs (Last four charted values)Hgb 14.2 (JUN 09) Hct 42.1 (JUN 09) Cr 1.0 (JUN 09) , Lab results 06/09/2017 06:03 EDT WBC 6.6 E9/L RBC 4.5 E12/L Hgb 14.2 gm/dL Hct 42.1 % MCV 93.8 fL MCH 31.6 pg MCHC 33.7 gm/dL RDW 13.0 % Platelet 274.0 E9/L MPV 8.4 fL Neutro Auto 55.4 % Lymph Auto 35.3 % [place] Auto 6.0 % Eos Auto 2.8 % Basophil Auto 0.5 % Neutro Absolute 3.7 E9/L Lymph Absolute 2.3 E9/L [place] Absolute 0.4 E9/L Eos Absolute 0.2 E9/L Basophil Absolute 0.0 E9/L Glucose Lvl 105 mg/dL BUN 14 mg/dL Creatinine 1.0 mg/dL eGFR >60 mL/min/1.73 m2 eGFR AA >60 mL/min/1.73 m2 BUN/Creat Ratio 14 Sodium Lvl 139 mmol/L Potassium Lvl 3.5 mmol/L Chloride 109 mmol/L CO2 24 mmol/L AGAP 10 mEq/L Calcium Lvl 8.8 mg/dL LOW . Documentation reviewed: Case discussed with: Katheryn Lopez MD. Calls & consults placed: Shannon Fabian MD. Impression and Plan Course: Progressing as expected. 52 year old Caucasion male with no past medical history presented to the ED with complaints of increasing dizziness, lightheadedness; States that has symptoms are noted both at rest and with movment but worsens with bending over. 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 Notices increase in cervical pain. Does have noted limited flexion of neck with decreased ROM to bilateral arms. Does complain of bilateral arm weakness with numbness and tingling from elbows to hands. CT Head in ED was negative. Patient will be admitted to hospitalist group for further work up and neurology consultationPLAN: Dizziness with lightheadedness differentials include TIA/CVA, BPPV, cervical stenosis-Increased complaints at rest and with movement- increases with bending over -Does have limited ROM to bilateral arms on exam with complaints of weakness,numbness/tingling.-CT Head -negative -Consult Neurology - -pending-Orthostatic vitals -pending-MRI/MRA brain, MRI cervical spine, ECHO, Carotid US -all vbvhdgi-Cyreeqkhv-HMD notes bradycardia ? symptomatic. -Start Aspirin 81mg daily-Continue Meclizine prn -Lipid pangel, tox screen, UA -pending-Follows labs. -PT/OT to eval, treat and make recommendations. DVT Prophylaxis: Heparin sqDispositon: Will make observation status at this time likely requiring <2 midnight stays; However pending further work up and recommendations may need to change to inpatient status. Education and Follow-up: Counseled: Patient, Regarding diagnosis, Regarding treatment, Regarding medications. Professional Services 35 minutes Normal [facility] Comment on above: Result Comment: Elec tronically Signed By: Sherie Partida\.br\Date and Time Signed: 06/09/17 11:06 EDT\.br\Electronically Co-Signed By: Katheryn Lopez MD\.br\Date and Time Co-Signed: 06/10/17 10:56 EDT Lab Miscellaneouson 06-10-20 17 Test Name multiple sclero Invalid Interpretation Code [facility] Comment on above: Order Comment: multi ple sclerosis panel:-oligoclonal bands-oligoclonal band synthesis-myelin basic protein Performed By: #### 1 [id number] ####[facility] [address] [place] [address] Test Name paraneoplastic Invalid Interpretation Code [facility] Comment on above: Performed By: #### 1 [id number] ####[facility] [address] [place] [address] Test Name CSF CLEMENCIA Invalid Interpretation Code [facility] Comment on above: Order Comment: CSF A CE Performed By: #### 1 [id number] ####[facility] [address] [place] [address] Test Name CSF lyme Invalid Interpretation Code [facility] Comment on above: Order Comment: CSF l yme Performed By: #### 1 [id number] ####[facility] [address] [place] [address] Lipid Panelon 06-10-2017 Cholesterol 170 mg/dL Normal 120-200 [facility] Comment on above: Performed By: #### 2 735033, [id number], 7701699, 9727079 ####[facility] [address] [place] [address] Cholesterol in VLDL mass conc 37 mg/dL Normal 7-40 [facility] Comment on above: Performed By: #### 2 329937, 16686514, 0912250, 9758952 ####[facility] [address] [place] [address] HDL Cholesterol 33 mg/dL Invalid Interpretation Code [facility] Comment on above: Result Comment: HDL > or equal to 60 mg/dL: Low cardiovascular riskHDL < 40 mg/dL : High cardiovascular risk Performed By: #### 2 786360, 71647489, 6866807, 3022978 ####[facility] [address] [place] [address] LDL Cholesterol 100 mg/dL Normal <=129 [facility] Comment on above: Performed By: #### 2 887139, 19344092, 8286784, 1309987 ####[facility] [address] [place] [address] Triglyceride 183 mg/dL High <=149 [facility] Comment on above: Performed By: #### 2 242502, 39059245, 9299908, 8592428 ####[facility] [address] [place] [address] MR-MRA Neck w/o Contrast IMP Libra 06-10-2017 MR-MRA Neck w/o Contrast IMPORT Images were obtained outside of [facility] [id number] Normal [facility] MR-MRI Spine Cervical w/o Co ntrast IMPORTon 06-10-2017 MR-MRI Spine Cervical w/o Contrast IMPORT Images were obtained outside of [facility] [id number] Normal [facility] MRA Head w/o Contraston MRA Head w/o Contrast Exam Date/Time:06/09/2017 16:29 EDTReason for Exam:TIAReportIMPRESSION: NEGATIVE MRA STUDY OF THE HEAD. CLINICAL HISTORY: TIA. Nausea. Lightheaded. Dizzy.COMMENT: Unenhanced images were obtained. The distal vertebral arteries bilaterally, the basilar artery, the distal internalcarotid arteries bilaterally, the vessels of the blackfeet of [place], and visualizedcentral portions of the anterior, middle, and posterior cerebral arteries appearnormal. No significant stenosis and no aneurysm are noted. FINAL REPORT Dictated: 06/10/2017 8:12 am Erik Ortiz M.D. Signed (Electronic Signature): 06/10/2017 8:12 am Signed by: Erik Ortiz M.D. Transcribed by: TITO Technologist: [facility] Normal [facility] MRA Neck w/o Contraston MRA Neck w/o Contrast Exam Date/Time:06/10/2017 13:53 EDTReason for Exam:TIAReportImpression: Negative MRA of the neck.Clinical history: SyncopeTECHNIQUE: Unenhanced scans were obtained. MIP reconstructions after yxmi-ve-gtdzbmhgynuepqdym were acquired. Source images are reviewed.FINDINGS: The common carotid arteries and carotid bifurcations are widely patentbilaterally. The vertebral arteries are codominant and patent. No significant stenosis in the extracranial carotid vasculature. FINAL REPORT Dictated: 06/10/2017 3:01 pm Sandeep Elias MD Signed (Electronic Signature): 06/10/2017 3:01 pm Signed by: Sandeep Elias MD Transcribed by: TITO Technologist: Normal [facility] MRI Brain w/ + w/o Contrasto n 06-10-2017 MRI Brain w/ + w/o Contrast Exam Date/Time:06/09/2017 16:48 EDTReason for Exam:TIAReportIMPRESSION: SMALL NONSPECIFIC SUBCORTICAL CEREBRAL WHITE MATTER FOCI. OTHERWISENEGATIVE MRI OF THE BRAIN.CLINICAL HISTORY: TIA. Lightheadedness. Dizziness. COMMENT: Unenhanced and intravenous contrast enhanced images were obtained. The ventricles and basal cisterns appear normal. The cortical sulci appear normal.There is no mass effect nor midline shift. On FLAIR images, there are a few smallfocal areas of increased signal intensity involving subcortical frontal white matterbilaterally and there is a small focus of the increased signal intensity involvingsubcortical right parietal white matter. These findings are nonspecific, but may bedue to small vessel ischemic changes. No other signal intensity changes within thebrain are noted. No abnormal contrast enhancement within the brain is noted. There isno evidence of recent infarction on the diffusion weighted images. No mass lesion isevident. FINAL REPORT Dictated: 06/10/2017 8:11 am Erik Ortiz M.D. Signed (Electronic Signature): 06/10/2017 8:11 am Signed by: Erik Ortiz M.D. Transcribed by: TITO Technologist: Petra CommentsMultiHanceContrast amount in ml's: 200 Normal [facility] MRI Spine Cervical w/o Contr berna 06-10-2017 MRI Spine Cervical w/o Contrast Exam Date/Time:06/10/2017 13:12 EDTReason for Exam:RadiculopathyReportIMPRESSI ON: BROAD-BASED EXTRUDED DISC AT C5-C6 RIGHT SIDE.CLINICAL HISTORY: SyncopeCOMPARISON: None.FINDINGS: Unenhanced scans were obtained. T1 and T2-weighted sagittal and axialsequences and a gradient echo axial sequence were acquired. A STIR sagittal sequenceis included.The vertebral bodies are normal in signal and normal in height. There is mild discdesiccation in the mid cervical spine. At C5-C6 there is extruded disc in the right subarticular zone effacing the thecalsac right side of the midline and compromising the C6 nerve root foramen.At C6-C7 there is a small central bulging disc noted without compromise of theposterior normal structures.There is no evidence of central canal stenosis. No disc herniation seen from E6iznskfg C4. No disc herniation at C7.Cervical cord normal in caliber and signal. Paraspinal and prevertebral soft tissuesunremarkable FINAL REPORT Dictated: 06/10/2017 2:54 pm Sandeep Elias MD Signed (Electronic Signature): 06/10/2017 2:54 pm Signed by: Sandeep Elias MD Transcribed by: TITO Technologist: AF Normal [facility] Magnesiumon 06-10-2017 Magnesium 1.8 mg/dL Normal 1.3-2.4 [facility] Comment on above: Performed By: #### 2 962666, [id number], 1761974, 3600614 ####[facility] [address] [place] [address] PT & PTTon 06-10-2017 aPTT 25.9 second(s) Normal 21.1-34.3 [facility] Comment on above: Result Comment: Hepa rin therapeutic range (represented by Anti-Factor Xa activity of 0.3-0.7 U/mL) corresponds to PTT of 57.8-86.7 sec. Performed By: #### 2 066274, 67706975, 5409482, 5556022 ####[facility] [address] [place] [address] INR Coag RelTime (PPP) 0.94 No Units Invalid Interpretation Code [facility] Comment on above: Result Comment: INR results are specifically intended to assess patients stabilized on long-term Anticoagulation therapy suggested INR?s ?Less Intensive Anticoagulation? 2.0 ? 3.0Conventional Range 3.0 ? 4.5 Performed By: #### 2 717187, 32492267, 9719862, 2738781 ####[facility] [address] [place] [address] Prothrombin time (PT) Coag time (PPP) 10.2 second(s) Normal 9.7-12.3 [facility] Comment on above: Performed By: #### 2 209567, 43257013, 8464108, 5959720 ####[facility] [address] [place] [address] TSH With T4fr Reflexon 06-10 Thyroid stimulating hormone (TSH) 3.96 mcIU/mL Normal 0.34-5.60 [facility] Comment on above: Performed By: #### 2 777464, 34533034, 9348321, 2254241 ####[facility] [address] [place] [address] eGFRon 06-10-2017 eGFR (black) mL/min/{1.73_m2} Normal >=59 [facility] Comment on above: Order Comment: Order added by Discern Expert. Result Comment: eGFR is race adjusted. AA=. Performed By: #### 2 926767, 06157558, 7914966, 1021115 ####[facility] [address] [place] [address] eGFR (non-black) mL/min/{1.73_m2} Normal >=59 [facility] Comment on above: Order Comment: Order added by Discern Expert. Result Comment: Powerbuilder laura kidney disease could be indicated at eGFR's of less than 60 mL/min/1.73m2. Kidney failure is indicated at less than 15 mL/min/1.73m2. Performed By: #### 2 473979, 01241162, 6777589, 6232449 ####[facility] [address] [place] [address] Auto Diffon 06-09-2017 Basophils Auto #/vol (Bld) 0.5 % Normal 0.0-2.0 [facility] Comment on above: Order Comment: Order Added by Discern Expert. Performed By: #### 2 198742, 17638434, 3740650, 6275151 ####[facility] [address] [place] [address] Basophils Auto #/vol (Bld) 0.0 E9/L Normal 0.0-0.2 [facility] Comment on above: Order Comment: Order Added by Discern Expert. Performed By: #### 2 148776, 18581941, 3423907, 9736722 ####[place] [address] [place] [address] Eosinophils 0.2 E9/L Normal 0.0-0.5 [facility] Comment on above: Order Comment: Order Added by Discern Expert. Performed By: #### 2 477784, 82698496, 8662295, 0993516 ####[address] [place] [address] Eosinophils/100 leukocytes 2.8 % Normal 0.0-8.0 [facility] Comment on above: Order Comment: Order Added by Discern Expert. Performed By: #### 2 170610, 12403885, 5938109, 4755579 ####[facility] [address] [facility] [place] [address] Lymphocytes 2.3 E9/L Normal 1.0-4.0 [facility] Comment on above: Order Comment: Order Added by Discern Expert. Performed By: #### 2 896065, 20061506, 5909206, 1812820 ####[facility] [address] [place] [address] Lymphocytes/100 leukocytes 35.3 % Normal 14.0-50.0 [facility] Comment on above: Order Comment: Order Added by [employer] Expert. Performed By: #### 2 365219, 80331992, 7851568, 6701599 ####[facility] [address] [place] [address] Monocytes 0.4 E9/L Normal 0.2-1.0 [facility] Comment on above: Order Comment: Order Added by [employer] Expert. Performed By: #### 2 031164, 20226376, 7674997, 4711311 ####[facility] [address] [facility] [address] Monocytes/100 leukocytes 6.0 % Normal 4.0-14.0 [facility] Comment on above: Order Comment: Order Added by [employer] Expert. Performed By: #### 2 080082, 20981320, 3998454, 6191230 ####[facility] [address] [place] [address] Neutrophils 3.7 E9/L Normal 2.0-7.5 [facility] Comment on above: Order Comment: Order Added by [employer] Expert. Performed By: #### 2 560709, 66947017, 1235416, 3154257 ####[facility] [address] [place] [address] Neutrophils/100 leukocytes 55.4 % Normal 36.0-75.0 [facility] Comment on above: Order Comment: Order Added by [employer] Expert. Performed By: #### 2 769856, 76107434, 4602628, 8158827 ####[facility] [address] [place] [address] BMPon 06-09-2017 BUN/Creatinine Ratio 14 No Units Normal 10-20 [facility] Comment on above: Performed By: #### 2 072309, 23120238, 4853673, 5459443 ####[facility] [address] [facility] [place] [address] Creatinine 1.0 mg/dL Normal 0.5-1.3 [facility] Comment on above: Performed By: #### 2 481733, 77185549, 8976343, 8578076 ####[facility] [address] [place] [address] Urea nitrogen 14 mg/dL Normal 5-21 [facility] Comment on above: Performed By: #### 2 731634, 69619909, 5575143, 8770675 ####[facility] [address] [place] [address] Anion gap 10 mmol/L Normal 6-16 [facility] Comment on above: Performed By: #### 2 896308, 28050752, 7845950, 8581259 ####[facility] [address] [place] [address] Calcium 8.8 mg/dL Low 8.9-11.1 [facility] Comment on above: Performed By: #### 2 803081, 59313969, 1146639, 2549810 ####[facility] [address] [place] [address] Chloride 109 mmol/L Normal 101-111 [facility] Comment on above: Performed By: #### 2 576091, 43620728, 8845747, 0082203 ####[facility] [address] [place] [address] CO2 24 mmol/L Normal 21-31 [facility] Comment on above: Performed By: #### 2 258564, 27969547, 4730863, 3586255 ####[facility] [address] [place] [address] Glucose mass conc 105 mg/dL Normal 55-199 [facility] Comment on above: Result Comment: If t his glucose result represents a fasting glucose, interpretation should refer to the following reference range: 55-99 mg/dL Performed By: #### 2 378964, 34134958, 4975600, 1526052 ####[facility] [address] [place] [address] Potassium molar conc 3.5 mmol/L Normal 3.5-5.3 [facility] Comment on above: Performed By: #### 2 604614, 71927302, 7647891, 0852148 ####[facility] [address] [place] [address] Sodium 139 mmol/L Normal 135-145 [facility] Comment on above: Performed By: #### 2 850007, 90318466, 4359632, 1129502 ####[facility] [address] [place] [address] CBC w/ Auto Diffon Erythrocyte distribution width Auto Ratio (RBC) 13.0 % Normal 10.9-14.2 [facility] Comment on above: Performed By: #### 2 681809, 19178705, 2474588, 1683534 ####[facility] [address] [place] [address] Erythrocytes (RBC) 4.5 E12/L Normal 4.3-5.9 [facility] Comment on above: Performed By: #### 2 668491, 25528810, 9896314, 7793817 ####[facility] [address] [place] [address] Hematocrit (HCT) 42.1 % Normal 37.7-49.0 [facility] Comment on above: Performed By: #### 2 611670, 63651939, 9497071, 9544337 ####[facility] [address] [place] [address] Hemoglobin mass conc (Bld) 14.2 g/dL Normal 13.5-17.5 [facility] Comment on above: Performed By: #### 2 200995, 76922460, 6074637, 6853006 ####[facility] [address] [place] [address] MCH 31.6 pg Normal 27.0-34.0 [facility] Comment on above: Performed By: #### 2 104910, 38723135, 5468936, 2706422 ####[facility] [address] [place] [address] MCHC mass conc (RBC) 33.7 g/dL Normal 31.4-39.3 [facility] Comment on above: Performed By: #### 2 601812, 26878582, 0071922, 9596491 ####[facility] [address] [place] [address] MCV 93.8 fL Normal 80.0-100.0 [facility] Comment on above: Performed By: #### 2 845767, 94788543, 2083436, 4528704 ####[place] [address] Platelet mean volume (PMV) 8.4 fL Normal 6.4-10.8 [facility] Comment on above: Performed By: #### 2 917598, 11946107, 4271866, 2985787 ####[facility] [address] [place] [address] Platelets 274.0 E9/L Normal 150.0-500. 0 [facility] Comment on above: Performed By: #### 2 602909, 69814635, 9420760, 5203524 ####[facility] [address] [place] [address] WBC (Leukocytes) 6.6 E9/L Normal 4.0-11.0 [facility] Comment on above: Performed By: #### 2 868611, 92834000, 6643069, 6840138 ####[address] [place] [address] CT Head or Brain w/o Contras ton 06-09-2017 CT Head or Brain w/o Contrast Exam Date/Time:06/09/2017 07:38 EDTReason for Exam:vertigo;Other (please specify)ReportIMPRESSION: NEGATIVE CT SCAN OF THE BRAIN. CLINICAL HISTORY: Lightheaded, dizzy, nausea.. COMPARISON: 05/05/2006.COMMENT: Unenhanced images were obtained.The ventricles and basal cisterns appear within normal limits. The cortical sulciappear normal. There is no mass effect nor midline shift. No abnormal attenuationwithin the brain is noted. There is no evidence of recent intracranial hemorrhagenor extra-axial hematoma. No mass lesion is evident. No skull fracture is noted. There has been no significant change when compared to the prior exam. All CT scans at this facility use dose modulation, iterative reconstruction, and/orweight based dosing when appropriate to reduce radiation dose to as low as reasonablyachievable. FINAL REPORT Dictated: 06/09/2017 8:17 am Erik Ortiz M.D. Signed (Electronic Signature): 06/09/2017 8:17 am Signed by: Erik Ortiz M.D. Transcribed by: TITO Technologist: BRENT Normal [facility] CT-CT Head or Brain w/o Cont rast IMPORTon 06-09-2017 CT-CT Head or Brain w/o Contrast IMPORT Images were obtained outside of [facility] [id number] Normal [facility] ED Clinical Summaryon 2016 ED Clinical Summary [place] [address] ED Clinical SummaryPerson Information Name: NEERAJ LARA/[facility] Age: 52 Years : 1965 12:00 AM Sex: Male Language:Egyptian PCP: FAVIO PRABHAKAR DO Marital Status: Visit Id: Visit Reason:Neurologic problem; Nausea; Dizziness; VERTIGO, POSS STROKE, STROKE WORK UP Speciality: Acuity: 3 Enc Type: Observation Med Service: Medical Arrival:06/09/2017 5:44 AM Discharge: LOS: 000 03:56 Checkin:06/09/2017 5:44 AM Checkout: 06/09/2017 9:40 AM Dispo Type: Admitted as IP to this [facility] EVENTS:Event Name Event Status Request Date/Time Start Date/Time Complete Date/Time Arrive Complete 06/09/2017 5:44 AM 06/09/2017 5:44 AM 06/09/2017 5:44 AM Document Home Meds Complete 06/09/2017 5:44 AM 06/09/2017 6:14 AM 06/09/2017 6:14 AM Triage Complete 06/09/2017 5:44 AM 06/09/2017 5:51 AM 06/09/2017 5:51 AM EKG Complete 06/09/2017 5:49 AM 06/09/2017 5:58 AM Bed Assign Complete 06/09/2017 5:52 AM 06/09/2017 5:52 AM 06/09/2017 5:[address] Exam Complete 06/09/2017 5:52 AM 06/09/2017 6:21 AM 06/09/2017 6:21 AM RN Exam Complete 06/09/2017 5:52 AM 06/09/2017 6:14 AM 06/09/2017 6:14 AM Registration Complete 06/09/2017 6:21 AM 06/09/2017 7:44 AM 06/09/2017 7:44 AM Meds Admin Request 06/09/2017 6:35 AM Pending Labs Complete 06/09/2017 6:35 AM 06/09/2017 7:04 AM Lab Complete 06/09/2017 6:35 AM 06/09/2017 7:04 AM Pending Labs Complete 06/09/2017 6:42 AM 06/09/2017 6:42 AM 06/09/2017 6:57 AM Lab Complete 06/09/2017 6:42 AM 06/09/2017 6:42 AM 06/09/2017 6:57 AM Pending Labs Complete 06/09/2017 6:44 AM 06/09/2017 6:44 AM 06/09/2017 6:44 AM Pending Labs Complete 06/09/2017 7:04 AM 06/09/2017 7:04 AM 06/09/2017 7:04 AM Lab Complete 06/09/2017 7:04 AM 06/09/2017 7:04 AM 06/09/2017 7:[address] Exam Complete 06/09/2017 7:17 AM 06/09/2017 7:17 AM 06/09/2017 7:[address] Complete 06/09/2017 7:17 AM 06/09/2017 7:20 AM 06/09/2017 7:38 AM Reg Complete Request 06/09/2017 7:44 AM Discharge Cancel 06/09/2017 8:34 AM 06/09/2017 9:09 AM Hospitalist Consult Request 06/09/2017 9:08 AM Patient Care Request 06/09/2017 9:09 AM Bed Request Request 06/09/2017 9:09 AM Reg Bed Request Request 06/09/2017 9:09 AM Admit Request 06/09/2017 9:09 AM Patient Care Request 06/09/2017 9:25 AM Patient Care Request 06/09/2017 9:25 AM Patient Care Request 06/09/2017 9:27 AM Patient Care Request 06/09/2017 9:27 AM ADDRESS:[address] [place] [phone] PHYS DOC NOTES: MEDICAL INFORMATION: Prescriptions Given:Prescription Display diazepam (diazepam 2 mg Tab) 2 mg = 1 tab(s), Oral, BID, # 10 tab(s), Refills(s) 0 meclizine (meclizine 25 mg Tab) 25 mg = 1 tab(s), Oral, TID, PRN for dizziness, # 20 tab(s), Refills(s) 0 PATIENT EDUCATION INFORMATION: Instructions: Follow up:With: Address: When: FAVIO PRABHAKAR [address] [place], [place] [id number] Business (1) In 3 days DIAGNOSIS:Dizzinesses; Vertigo [facility] ED Note-Nursingon 06-09-2017 INR Coag RelTime (Bld) 0622 - Dr. Turcios in room at this time assessing/speaking with patient.0629 - Dr. Turcios out of room, pt resting in bed, call light in reach, waiting for further orders at this time.0652 - Pt medicated, re-vitalized. Pts now at bedside. Pt denies any other needs at this time. Call light in reach. Pt waiting on lab results.0710 - This nurse gave report to Fiona TALAVERA, who will now be taking over for the care of this pt. [facility] ED Note-Physicianon 06-09-20 ED Note-Physician Patient: Emili LARA Age: 52 years Sex: Male : 1965 Associated Diagnoses: None Author: Avelina Al M.D. Basic Information Addendum: Time of addendum:: 06/09/17 07:24:00 , Assumed care from: Maxwell Turcios MD, Time 06/09/17 07:10:00. Medical Decision Making Documents reviewed: Emergency department nurses' notes. Orders Launch Order Profile (Selected) Inpatient OrdersInProcess (Exam Complete)ECG 12 Lead Adult: 06/09/17 5:49:20 EDT, Routine, FT - CardiologyOrderedSodium Chloride 0.9% IV Mildred 1000 mL 1,000 mL: 1,000 mL, IV, Bolus, STAT, Start date 06/09/17 6:35:00 EDT, Total volume (mL): 1,000CompletedAntivert 25 mg Tab: 25 mg = 1 tab(s), Tab, Oral, Once, Stop date 06/09/17 6:34:00 EDT, STAT, Start date 06/09/17 6:34:00 EDTAtivan 2 mg/mL Injection: 0.5 mg = 0.25 mL, Injection, IV Push, Once, Stop date 06/09/17 7:00:00 EDT, Routine, Start date 06/09/17 7:00:00 EDTAutomated Diff: Blood, Stat collect, Collected, 06/09/17 6:03:00 EDT, Once, Stop date 06/09/17 6:03:00 EDT, Lab CollectBasic Metabolic Panel: Blood, Stat collect, 06/09/17 6:34:00 EDT, Once, Stop date 06/09/17 6:35:00 EDT, Lab CollectCBC w/ Auto Diff: Blood, Stat collect, 06/09/17 6:34:00 EDT, Once, Stop date 06/09/17 6:35:00 EDT, Lab CollectCT Head or Brain w/o Contrast: 06/09/17 7:17:00 EDT, Stat, Transport Mode: Cart, Reason: Other (please specify), Reason: vertigo, No, pp_set_radiology_subspecialty, EmergencyExtra Blue Tube: Blood, Stat collect, Collected, 06/09/17 6:03:[place] [id number], Once, Stop date 06/09/17 6:03:00 EDT, Lab Collect, IV Start, Print Label By Order Location, YesExtra SST Tube: Blood, Stat collect, Collected, 06/09/17 6:03:[place] [id number], Once, Stop date 06/09/17 6:03:00 EDT, Lab Collect, IV Start, Print Label By Order Location, YeseGFR: Blood, Stat collect, Collected, 06/09/17 6:03:00 EDT, Once, Stop date 06/09/17 6:03:00 EDT, Lab Collect. Results review: Lab results : Lab View 06/09/2017 06:03 EDT WBC 6.6 E9/L RBC 4.5 E12/L Hgb 14.2 gm/dL Hct 42.1 % MCV 93.8 fL MCH 31.6 pg MCHC 33.7 gm/dL RDW 13.0 % Platelet 274.0 E9/L MPV 8.4 fL Neutro Auto 55.4 % Lymph Auto 35.3 % [place] Auto 6.0 % Eos Auto 2.8 % Basophil Auto 0.5 % Neutro Absolute 3.7 E9/L Lymph Absolute 2.3 E9/L [place] Absolute 0.4 E9/L Eos Absolute 0.2 E9/L Basophil Absolute 0.0 E9/L Glucose Lvl 105 mg/dL BUN 14 mg/dL Creatinine 1.0 mg/dL eGFR >60 mL/min/1.73 m2 eGFR AA >60 mL/min/1.73 m2 BUN/Creat Ratio 14 Sodium Lvl 139 mmol/L Potassium Lvl 3.5 mmol/L Chloride 109 mmol/L CO2 24 mmol/L AGAP 10 mEq/L Calcium Lvl 8.8 mg/dL LOW . Radiology results: POWERSCRIBE REPORT of CT of the brain:IMPRESSION: NEGATIVE CT SCAN OF THE BRAIN. CLINICAL HISTORY: Lightheaded, dizzy, nausea.. COMPARISON: 05/05/2006.COMMENT: Unenhanced images were obtained.The ventricles and basal cisterns appear within normal limits. The cortical sulciappear normal. There is no mass effect nor midline shift. No abnormal attenuationwithin the brain is noted. There is no evidence of recent intracranial hemorrhagenor extra-axial hematoma. No mass lesion is evident. No skull fracture is noted. There has been no significant change when compared to the prior exam. . Notes: The patient's care was transferred to dc on shift change to follow-up on lab results and reevaluation of the patient. He has presented with vertigo for over 2 to 3 weeks. The symptoms have been waxing and waning. The patient states that he feels off the balance especially when he is trying to get up, when his bend forward, however he reports having vertigo even while he is sitting without any movement. He denies any difficulty swallowing. He reports blurry vision that's been for a long time. Denies any double vision. Denies any hearing loss. Denies any ringing in his ears. The CT of the brain was ordered and it was negative. The patient symptoms improved and initially the patient and the agreed to get discharge however when the nurse went to discharge the patient the states that she does not feel comfortable she wants her be admitted for observation. The case was discussed with the hospitalist and the patient will be admitted for observation for vertigo. Physical Examination alert and oriented. Heart bradycardia. Lungs CTAB. Neuro intact CN II-XII intact as tested. Motor and sensory intact. No attaxia. No nystagmus. Reexamination/ Reevaluation Vital signs Basic Oxygen Information 06/09/2017 06:42 EDT SpO2 96 % Oxygen Therapy Room air 06/09/2017 05:48 EDT SpO2 98 % Oxygen Therapy Room air Impression and Plan Diagnosis Vertigo ([id number], Discharge, Medical) Plan Condition: Improved, Stable. Disposition: Admit time 06/09/17 09:06:00, Place in Observation Telemetry Unit, Katheryn Lopez MD. Prescriptions: Launch prescriptions Pharmacy:meclizine 25 mg Tab (Prescribe): 25 = 1 mg tab(s), Oral, TID, PRN for dizziness, # 20 tab(s), Refills(s) 0diazepam 2 mg Tab (Prescribe): 2 = 1 mg tab(s), Oral, BID, # 10 tab(s), Refills(s) 0. Patient was given the following educational materials: Vertigo. Follow up with Counseled: Patient, Regarding diagnosis, Regarding diagnostic results, Regarding treatment plan. [facility] Comment on above: Result Comment: Elec tronically Signed By: Servando Pacheco, Avelina Cortez.luke\Date and Time Signed: 06/09/17 18:45 EDT ED Patient Education Noteon 06-09-2017 ED Patient Education Note Patient Education Materials Follows: Normal [facility] ED Patient Summaryon 017 ED Patient Summary (Inserted Image. Bobbi ble to display) [place] [id number] Patient Discharge Instructions Person Information Name: NEERAJ LARA Age: 52 Years Date: 06/09/2017 5:44 AMDischarge Diagnosis: Dizzinesses; Vertigo Primary Care Physician: FAVIO PRABHAKAR DO Provider InformationPrimary Provider: Maxwell Turcios MDPhysicijonh Moth Exterminator:None The exam and treatment you received in the Emergency Department were for an urgent problem and are not intended as complete care. It is important that you follow up with a doctor, nurse practitioner, or physician?s physical therapist assistant for ongoing care. If your symptoms become worse or you do not improve as expected and you are unable to reach your usual health care provider, you should return to the Emergency Department. We are available 24 hours a day. NEERAJ LARA has been given the following list of patient education materials, prescriptions and follow-up instructions: Follow-up Instructions:With: Address: When: FAVIO PRABHAKAR [address] [place], [place] [phone] Business (1) In 3 days In the event that this physician does not participate in your insurance network, please consult with your insurance company to find a nearby participating provider. Patient Education Materials: Medications Given:Medication Dose Route Sodium Chloride 0.9% intravenous solution 1000.00 mL Initial Volume 1000.00 mL/hr IV Left Wrist meclizine 25.00 mg Oral lorazepam 0.50 mg IV Push Left Wrist Medication Information:New MedicationsPrinted Prescriptionsdiazepam (diazepam 2 mg Tab) 1 Tabs By Mouth 2 times a day. Refills: 0.meclizine (meclizine 25 mg Tab) 1 Tabs By Mouth 3 times a day as needed for dizziness. Refills: 0.Comment: Pharmacy Information: ank you for choosing [facility] Patient Education Materials: MARCO Munroe LUCKY C , have received the following patient education materials/instructions and have verbalized understanding: Patient Education Materials: Follow-up Instructions: With: Address: When: FAVIO PRABHAKAR [address] [place] [phone] [facility] (0) In 3 days Prescriptions: [diazepam (diazepam 2 mg Tab)] [meclizine (meclizine 25 mg Tab)] Patient Signature Date Clinician/Nurse Signature Date 06/09/17 09:40:23 [facility] Interdisciplinary Note - Santana e Manageron 06-09-2017 Interdisciplinary Note - 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 Patient alert and oriented, involved in POC. Discussed medications, labs, and tests. C/O numbness and tingling of B/L upper extremities. CT negative, MRI brain and MRI neck ordered. Neuro consulted, depending on test results may need OrthoSpine consult. No family present at this time. Patient?s goal is to return home at discharge. Anticipated discharge yet to be determined, 1-2 days, depending on test results. Contact and goal information updated on white board.Await OT/PT evals also. [facility] Interdisciplinary Note - Caro n 06-09-2017 Interdisciplinary Note - OT 6 clicks score: 24/24. Pt functioning at baseline- independent in ADLs and transfers. No dizziness or nausea noted during evaluation. Pt reported normal numbness and tingling present in B/L UE, but strength and ROM WFL. Educated pt on visiting PCP for referral to outpatient occupational therapy to address sensory concerns following discharge. [facility] Interdisciplinary Note - PTo n 06-09-2017 Interdisciplinary Note - PT PT eval completed; vestibular testing was unremarkable (including testing for BPPV) and pt is independent with ambulation without an AD. Will defer UE treatment to OT; no further PT necessary at this time. Pt scores 23/24 on the AM-PAC 6-Clicks. [facility] MR-MRA Head w/o Contrast IMP Libra 06-09-2017 MR-MRA Head w/o Contrast IMPORT Images were obtained outside of [facility] [id number] Normal [facility] MR-MRI Brain w/ + w/o Contra st IMPORTon 06-09-2017 MR-MRI Brain w/ + w/o Contrast IMPORT Images were obtained outside of [facility] [id number] Normal [facility] Physician Consultation Noteo n 06-09-2017 Physician Consultation Note Patient: NEERAJ LARA Age: 52 years Sex: Male : 1965 Associated Diagnoses: None Author: Shannon Fabian MD Visit Information Visit type: Consultation. Reason for Consult:dizzinessConsult Requested by:Dr. Campa Chief Complaint Dizziness History of Present Illness Neeraj is a 52 yo M with some cv risk factors who presnted with dizziness which has worsed over the past 2 weeks. He did get some relieft with meclizine and valium. He notes that the dizziness is provoked by head movements as well as bending pver and raising etc. He has no nystatgmus on exam. However, more thatn this he notes that over the past few months he's had worsening of his vision with some blurriness and difficulty focusing. Addionally he has ahd a recent 20 pound unintentional weightloss. Over the past year his has noted to have some personality changes with being more irritable and easily agitated. He also notes that asied from dizziness he has had some imabalance as well. His neurological exam, however, is rather unremarkable. HCT and set of orthostatic vs from ED are unremarkable. Review of Systems As per HPI, all others negative. Health Status Allergies: Allergic Reactions (All)No Known Allergies Current medications: (Selected) Inpatient MedicationsOrderedSodium Chloride 0.9% IV Mildred 1000 mL 1,000 mL: 1,000 mL, IV, Bolus, STAT, Start date 06/09/17 6:35:00 EDT, Total volume (mL): 1,000Zofran 4 mg/2 mL Injection: 4 mg = 2 mL, Injection, IV Push, q6hr PRN Nausea, Routine, Start date 06/09/17 10:30:00 EDTacetaminophen 325 mg Tab: 650 mg = 2 tab(s), Tab, Oral, q6hr PRN Pain, Routine, Start date 06/09/17 10:30:00 EDTaspirin 81 mg Oral EC Tab: 81 mg = 1 tab(s), Tab-EC, Oral, Daily, Routine, Start date 06/09/17 11:00:00 EDTheparin 5000 units/mL Inj: 5,000 unit(s) = 1 mL, Injection, SubCutaneous, BID for 10 day(s), Stop date 06/19/17 20:59:00 EDT, Routine, Start date 06/09/17 21:00:00 EDTmeclizine 25 mg Tab: 25 mg = 1 tab(s), Tab, Oral, q6hr PRN Dizziness, Routine, Start date 06/09/17 10:57:00 EDTPrescriptionsPrescribeddiazep am 2 mg Tab: 2 mg = 1 tab(s), Oral, BID, # 10 tab(s), Refills(s) 0meclizine 25 mg Tab: 25 mg = 1 tab(s), Oral, TID, PRN for dizziness, # 20 tab(s), Refills(s) 0, Home Medications (2) Activediazepam 2 mg Tab 2 mg = 1 tab(s), Oral, BIDmeclizine 25 mg Tab 25 mg = 1 tab(s), PRN, Oral, TID Problem list: All ProblemsCorneal abrasion / ICD-9-CM 918.1 / ConfirmedPotential for deficient knowledge of cerebrovascular accident (CVA) / IMO [id number] / Possibleproblem added based on Stroke Powerplan ordered.Resolved: Legionnaire's disease / SNOMED CT [id number] Histories Past Medical History: No active or resolved past medical history items have been selected or recorded. Family History: HypertensionMotherDiabetes mellitus type 2FatherMotherStrokeMother Procedure history: Arthroscopy of knee joint (633589398).Appendectomy (514053698).Tonsillectomy (419302879).tumor removed frombackof head.tumor removed from left jaw line. Social History Social & Psychosocial MlkueoUpcykvq27/02/2017 Risk Assessment: Denies Alcohol UseSubstance Abuse06/09/2017 Risk Assessment: Denies Substance UrseeOoonznb42/02/2017 Risk Assessment: Denies Tobacco Use. Physical Examination General Physical Exam: HEENT: Skull atraumatic. Oropharynx moist and free of lesions.Heart: Normal rate and regular rhythm by pulse palpation.Abdomen: Soft, non-tender. Extremities: Pulses symmetric, no lower edema. Skin: No unusual rashes or lesions. Psych: Affect full, mood dysthymic Neurological Exam: Mental Status: Orientation was normal to time, place and self. Speech is clear. Language is intact. Cranial Nerves: CN IIVisual pearce were full to confrontation. Pupils were equal and symmetrically reactive. CN III, IV, : Extraocular motility was intact. No nystagmus. CN V: Facial sensation intact. CN VII: Muscles of facial expression were strong and symmetric. CN VIII: Hearing was normal bilaterally. CN IX, X: Palate elevates symmetrically. CN XI: Sternocleidomastoid and Trapezius normal. CN XII: Tongue protrudes midline. Motor: Normal tone with no involuntary movements or pronator drift. Strength: Upper Extremities(R/L): Proximal 5/5 Distal 5/5 Lower Extremities (R/L): Proximal 5/5 Distal 5/5 Sensation: Intact to light touch sensation in the upper and lower extremities bilaterally. Reflexes: (R/L)symmetricPlantar responses downgoing bilaterally. Coordination: Finger to nose normal. Gait: Deferred Vitals Signs (last 24 hrs) Last Charted Minimum MaximumTemp 36.5 (JUN 09 09:54) 36.4 (JUN 09 05:48) 36.5 (JUN 09 09:54)Heart Rate L 47 (JUN 09 09:54) L 43 (JUN 09 08:01) L 59 (JUN 09 05:48)Resp Rate 16 (JUN 09 09:54) 10 (JUN 09 08:01) 18 (JUN 09 05:48)SBP 138 (JUN 09 09:54) 133 (JUN 09 08:59) H 146 (JUN 09 05:48)DBP 81 (JUN 09 09:54) 81 (JUN 09 09:54) H 93 (JUN 09 08:01)MAP 104 (JUN 09 08:59) 104 (JUN 09 08:59) 108 (JUN 09 08:01)SpO2 99 (JUN 09 09:54) 96 (JUN 09 06:42) 99 (JUN 09 08:01) Review / Management Results review: Lab results 06/09/2017 06:03 EDT WBC 6.6 E9/L RBC 4.5 E12/L Hgb 14.2 gm/dL Hct 42.1 % MCV 93.8 fL MCH 31.6 pg MCHC 33.7 gm/dL RDW 13.0 % Platelet 274.0 E9/L MPV 8.4 fL Neutro Auto 55.4 % Lymph Auto 35.3 % [place] Auto 6.0 % Eos Auto 2.8 % Basophil Auto 0.5 % Neutro Absolute 3.7 E9/L Lymph Absolute 2.3 E9/L [place] Absolute 0.4 E9/L Eos Absolute 0.2 E9/L Basophil Absolute 0.0 E9/L Glucose Lvl 105 mg/dL BUN 14 mg/dL Creatinine 1.0 mg/dL eGFR >60 mL/min/1.73 m2 eGFR AA >60 mL/min/1.73 m2 BUN/Creat Ratio 14 Sodium Lvl 139 mmol/L Potassium Lvl 3.5 mmol/L Chloride 109 mmol/L CO2 24 mmol/L AGAP 10 mEq/L Calcium Lvl 8.8 mg/dL LOW . All images have been personally reviewed:-HCT:NEGATIVE CT SCAN OF THE BRAIN. Impression and Plan Assessment:Neeraj is a 52 yo M with some cv risk factors who presnted with dizziness which has worsed over the past 2 weeks. The dizziness is not as concerning as the reported rest of the history with weightloss, night sweats, blurred vision and difficuty with imbalance while ambulating. It is reassuring that he has a normal neurological exam, however.Plan:-MRI brain and c-spine w/wo-trend orthostatic vs QID-PT for Carlton-Hallpike Diagnosis Complaint of Dizziness (PNED [id number], Reason For Visit, Medical). Complaint of Nausea (PNED [id number], Reason For Visit, Medical). Normal [facility] U Drug Screenon 06-09-2017 AMPHETAMINES:PRTHR :PT:URINE:ORD:SCRE EN>1000 NG/ML Negative Normal Negative [facility] Comment on above: Result Comment: Nega tive Cutoff: <1000 ng/mL Performed By: #### 2 564028, [id number], 7611249, 0688966 ####[facility] [address] [place] [address] OPIATES:PRTHR:PT:U RINE:ORD:SCREEN Negative Normal Negative [facility] Comment on above: Result Comment: Nega tive Cutoff: <300 ng/mL Performed By: #### 2 207316, [id number], 7488090, 8040115 ####[facility] [address] [place] [address] PHENCYCLIDINE:PRTH R:PT:URINE:ORD:SCR EEN>25 NG/ML Negative Normal Negative [facility] Comment on above: Result Comment: Nega tive Cutoff: <25 ng/mLThese drug screen results are to be used for medical (i.e., treatment) purposes only. Unconfirmed drug screening results must not be used for non-medical purposes (e.g., employment testing, legal testing). Performed By: #### 2 145763, [id number], 0372577, 5074670 ####[facility] [address] [place] [address] TETRAHYDROCANNABIN OL:PRTHR:PT:URINE: ORD:SCREEN>50 NG/ML Negative Normal Negative [facility] Comment on above: Result Comment: Nega tive Cutoff: <50 ng/mL Performed By: #### 2 464575, 82828709, 8328479, 5073093 ####[facility] [address] [place] [address] Urine, barbiturates presence Negative Normal Negative [facility] Comment on above: Result Comment: Nega tive Cutoff: <200 ng/mL Performed By: #### 2 982941, 18996513, 7827908, 5487183 ####[facility] [address] [place] [address] Urine, benzodiazepines presence Negative Normal Negative [facility] Comment on above: Result Comment: Nega tive Cutoff: <200 ng/mL Performed By: #### 2 802852, 32133502, 3295159, 1118145 ####[facility] [address] [place], [place] [address] Urine, cocaine presence Negative Normal Negative [facility] Comment on above: Result Comment: Nega tive Cutoff: <300 ng/mL Performed By: #### 2 271336, 92622179, 0935599, 8791459 ####[facility] [address] [place] [address] UA With Cult Reflexon 2016 BACTERIA:PRTHR:PT: URINE SED:ORD:MICROSCOPY .LIGHT TRACE Normal Trace [facility] Comment on above: Performed By: #### 2 352086, 68619881, 1180822, 9952387 ####[facility] [address] [place] [address] Bilirubin Ql (U) Negative Normal Negative [facility] Comment on above: Performed By: #### 2 180937, 38940030, 8686016, 7574597 ####[facility] [address] [place] [id number] COLOR:TYPE:PT:URIN E:NOM:AUTO YELLOW Normal Yellow [facility] Comment on above: Performed By: #### 2 748467, 37289289, 4248349, 5021054 ####[facility] [address] [place] [address] Erythrocytes (RBC) 0-3 Normal 0-3 [facility] Comment on above: Performed By: #### 2 068375, 89517897, 2158005, 3885917 ####[facility] [address] [place], [place] [address] GLUCOSE:MCNC:PT:UR INE:QN:TEST STRIP Negative Normal Negative [facility] Comment on above: Performed By: #### 2 615725, 13631494, 6024120, 2015398 ####[place] [address] KETONES:MCNC:PT:UR INE:QN:TEST STRIP Negative Normal Negative [facility] Comment on above: Performed By: #### 2 547302, 98381736, 3257062, 0438897 ####[facility] [address] [place] [address] LEUKOCYTES:PRTHR:P T:URINE:ORD:AUTOMA KILEY Negative Normal Negative [facility] Comment on above: Performed By: #### 2 712503, 71269858, 6705965, 9503032 ####[facility] [address] [place] [address] UA Spec Desc Clean Catch Normal [facility] Comment on above: Performed By: #### 2 028605, 64812191, 7013563, 6222469 ####[facility] [address] [place] [address] Urine, clarity CLEAR Normal Clear [facility] Comment on above: Performed By: #### 2 478462, 31640920, 8075034, 4875731 ####[facility] [address] [place] [address] Urine, hemoglobin presence Negative Normal Negative [facility] Comment on above: Performed By: #### 2 521491, 87274732, 6325831, 2609458 ####[facility] [address] [place] [address] Urine, leukocytes in sedmiment 0-5 Normal 0-5 [facility] Comment on above: Performed By: #### 2 183595, 26828403, 9614152, 3562349 ####[facility] [address] [place] [address] Urine, nitrite presence Negative Normal Negative [facility] Comment on above: Performed By: #### 2 398362, 41054349, 3477754, 8574579 ####[facility] [address] [place] [address] Urine, pH 7.0 [pH] Invalid Interpretation Code 5.0-9.0 [facility] Comment on above: Performed By: #### 2 844816, 96074481, 2953629, 5212592 ####[facility] [address] [place] [address] Urine, protein Negative Normal Negative [facility] Comment on above: Performed By: #### 2 701425, 33720067, 8714744, 0148445 ####[facility] [address] [place] [address] Urine, specific gravity 1.020 Invalid Interpretation Code 1.005-1.03 0 [facility] Comment on above: Performed By: #### 2 822444, 72132719, 2083025, 5519033 ####[facility] [address] [place] [address] Urine, squamous cells in sediment 0-2 Normal 0-2 [facility] Comment on above: Performed By: #### 2 181590, 26529627, 1586007, 2920489 ####[facility] [address] [place] [address] Urine, urobilinogen 0.2 {Kwesi'U}/dL Normal 0.0-1.0 [facility] Comment on above: Performed By: #### 2 241006, 12049533, 4222821, 0439387 ####[facility] [address] [place] [address] US-Echo w/ Saline Bubbles IM PORTon 06-09-2017 US-Echo w/ Saline Bubbles IMPORT Images were obtained outside of [facility] [id number] Normal [facility] US-US Carotid Duplex Bilater al IMPORTon 06-09-2017 US-US Carotid Duplex Bilateral IMPORT Images were obtained outside of [facility] [id number] Normal [facility] eGFRon 06-09-2017 eGFR (black) mL/min/{1.73_m2} Normal >=59 [facility] Comment on above: Order Comment: Order added by Discern Expert. Result Comment: eGFR is race adjusted. AA=. Performed By: #### 2 611819, 32316566, 3639131, 5042178 ####[facility] [address] [place] [address] eGFR (non-black) mL/min/{1.73_m2} Normal >=59 [facility] [facility] Comment on above: Order Comment: Order added by Discern Expert. Result Comment: Powerbuilder laura kidney disease could be indicated at eGFR's of less than 60 mL/min/1.73m2. Kidney failure is indicated at less than 15 mL/min/1.73m2. Performed By: #### [id number] ####[facility] [id number] [place] [address] Encounters Encounter Date Encounter Type Care Provider Facility Start: 07-04-2017 End: 07-04-2017 Ambulatory TUSHAR VERAS [facility] Start: 06-20-2017 End: 07-02-2017 Ambulatory DOLYANELIS R ALLYSONO [facility] Start: 06-09-2017 End: 06-11-2017 Ambulatory [id number] UNKNOWN PRABHAKAR Facility:[facility] Payers Date Payer Category Payer Unknown [id number] Summary Purpose Family History No Family History Records FoundNo Family History Records Found Advance Directives No Advanced Directives Records FoundNo Advanced Directives Records Found Additional Source Comments (unrecognized sect ion and content) No Status Records FoundNo Status Records Found INFORMATION SOURCE (unrecogn ized section and content) DATE CREATED AUTHOR 03/03/2018 [facility] DATE CREATED AUTHOR AUTHOR'S CHILO SCHWAB 03/03/2018 [facility] FOR RECORDS PERTAINING TO PATIENTS WHO ARE OR HAVE BEEN ENROLLED IN A CHEMICAL DEPENDENCY/SUBSTANCEABUSE PROGRAM, SOME INFORMATION MAY BE OMITTED. This clinical summary was aggregated from multiple sources. Caution should be exercised in using it in the provision of clinical care. This summary normalizes information from multiple sources, and as a consequence, information in this document may materially change the coding, format and clinical context of patient data. In addition, data may be omitted in some cases. CLINICAL DECISIONS SHOULD BE BASED ON THE PRIMARY CLINICAL RECORDS. [employer] provides no warranty or guarantee of the accuracy or completeness of information in this document.
--- NOTE | 2024-10-05 16:41 | CT_ITS ---
[address] [address] Patient Name: DONNY PYLE MRN: [id number] date: 1965 Sex: M Assigned Patient Location: ER Current Patient Location: ER Accession/Order Number: [id number] Exam Date: 10/05/2024 17:20 Report Date: 10/05/2024 17:58 At the request of: LEO BORJAS Procedure: CT abdomen pelvis wo con CT ABDOMEN/PELVIS WITHOUT IV CONTRAST. INDICATION: Right flank pain, recent stone COMPARISON: 10/02/2024 TECHNIQUE: Contiguous axial images were obtained from the lung bases to the pelvic floor without intravenous or oral contrast. Coronal and sagittal reformations are provided. FINDINGS: LOWER LUNGS: Clear. LIVER/BILIARY TREE: No discrete lesion. No intrahepatic ductal dilatation. GALLBLADDER: No significant gallbladder wall thickening. No radiopaque stone. CBD: Normal CBD. SPLEEN: Normal in size. PANCREAS: No appreciable peripancreatic fluid. No pancreatic ductal dilatation. No discrete lesion. ADRENALS: Normal. KIDNEYS: Interval distal migration of the 6 mm right ureteral stone which is not situated in the UVJ. There is persistent mild right hydronephrosis. . There is a nonobstructing 1 mm right renal stone. STOMACH AND BOWEL: Stomach is unremarkable. No dilated bowel loops. No bowel wall thickening. APPENDIX: Not visualized. PERITONEAL CAVITY: No fluid. No fat stranding. ABDOMINAL WALL: No subcutaneous stranding. No subcutaneous fluid collection. There is a small umbilical hernia containing fat. LYMPH NODES: No mesenteric or retroperitoneal lymphadenopathy by CT criteria. ABDOMINAL AORTA: No aneurysm. PELVIS: Right UVJ 6 mm stone. MUSCULOSKELETAL: No acute osseous abnormality. CT/CT abdomen pelvis wo con IMPRESSION: Interval distal migration of the obstructing 6 mm stone which is now situated in the UVJ. Persistent mild right hydronephrosis. Electronically authenticated by: MAKSIM WELLS Date: 10/05/2024 17:58
--- NOTE | 2024-10-05 16:41 | ED.GENADUL1 ---
HPI HPI - General Adult General Chief complaint: Urogenital-Male Stated complaint: RIGHT SIDE PAIN Time Seen by Provider: 10/05/24 16:30 History of Present Illness HPI narrative: 59-year-old male presents to the emergency department for right flank pain. He was seen here several days ago and was diagnosed with a kidney stone. He was told he was passing 2 stones and the pain that was in the right lower quadrant is now gone. He only has pain in the right flank. No dysuria or hematuria or injury. He has not seen any stones and he has been straining his urine. Related Data Home Medications ?Medication ?Instructions ?Recorded ?Confirmed meloxicam 15 mg tablet 15 mg PO DAILY 10/02/24 10/05/24 docusate sodium 100 mg capsule 100 mg PO BID 10/05/24 10/05/24 (Colace) oxycodone-acetaminophen 5 mg-325 1 tab PO Q8H 10/05/24 10/05/24 mg tablet (Percocet) tamsulosin 0.4 mg capsule (Flomax) 0.4 mg PO DAILY 10/05/24 10/05/24 Allergies Allergy/AdvReac Type Severity Reaction Status Date / Time No Known Drug Allergies Allergy Verified 10/05/24 16:36 Opioid HPI Opioid Management Most Recent Opioid Data: Last ED Pain Assessment 10/02/24 21:13 Review of Systems ROS Narrative A ten point review of systems is negative except as noted above. PFSH PFSH Social History Little interest or pleasure in doing things: not at all Feeling down, depressed, or hopeless: not at all Exam Narrative Exam Narrative: Nurses note and vital signs reviewed and patient is not hypoxic. General: The patient appears well and in no apparent distress. Patient is resting comfortably on cart. Skin: Warm, dry, no pallor noted. There is no rash noted. Head: Normocephalic, atraumatic Eye: Normal conjunctiva, no drainage Ears, Nose, Mouth, and Throat: oral mucosa is moist. Nares patent. Cardiovascular: Regular Rate and Rhythm Respiratory: Patient is in no distress, no accessory muscle use, lungs are clear to auscultation, no wheezing, rales or rhonchi Back: non-tender, no CVA tenderness bilaterally to percussion. GI: Soft and nontender Musculoskeletal: The patient has no evidence of calf tenderness, no pitting edema, symmetrical pulses noted bilaterally Neurological: A&O, normal speech Psychiatric: Cooperative Constitutional Vital Signs, click to edit/add: Last Vital Signs Temp 97.9 F 10/05/24 16:38 Pulse 75 10/05/24 16:38 Resp 20 10/05/24 16:38 BP 167/88 H 10/05/24 16:38 Pulse Ox 97 10/05/24 16:38 Course Vital Signs Vital signs: Vital Signs Temperature 97.9 F 10/05/24 16:38 Pulse Rate 75 10/05/24 16:38 Respiratory Rate 20 10/05/24 16:38 Blood Pressure 167/88 H 10/05/24 16:38 Pulse Oximetry 97 10/05/24 16:38 Temperature 97.9 F 10/05/24 16:38 Pulse Rate 75 10/05/24 16:38 Respiratory Rate 20 10/05/24 16:38 Blood Pressure 167/88 H 10/05/24 16:38 Pulse Oximetry 97 10/05/24 16:38 Medical Decision Making MDM Narrative Medical decision making narrative: His 6 mm stone is now in his UV junction. He is able to be discharged home and wants to follow-up with Dr. Boone. Treatment diagnosis and follow-up were discussed with the patient Differential Diagnosis Differential Diagnosis: Kidney stone, hydronephrosis Lab Data Lab results reviewed: Yes I reviewed the patient's lab results Labs: Lab Results 10/05/24 10/05/24 Range/Units 16:50 17:20 WBC 7.6 (4.0-11.0) 10^3/uL RBC 4.15 L (4.70-6.10) 10^6/uL Hgb 13.1 L (14.0-18.0) g/dL Hct 39.7 L (42.0-54.0) % MCV 95.7 H (80.0-94.0) fL MCH 31.6 (25.9-34.0) pg MCHC 33.0 (29.9-35.2) g/dL RDW 12.5 (11.0-15.0) % Plt Count 263 (150-450) 10^3/uL MPV 9.6 (9.5-13.5) fL Neut % (Auto) 58.5 (43.0-75.0) % Lymph % (Auto) 30.4 (20.5-60.0) % [place] % (Auto) 8.3 (1.7-12.0) % Eos % (Auto) 2.2 (0.9-7.0) % Baso % (Auto) 0.5 (0.2-2.0) % Neut # (Auto) 4.4 (1.4-6.5) 10^3/uL Lymph # (Auto) 2.3 (1.2-3.8) 10^3/uL [place] # (Auto) 0.6 (0.3-0.8) 10^3/uL Eos # (Auto) 0.2 (0.0-0.7) 10^3/uL Baso # (Auto) 0.0 (0.0-0.1) 10^3/uL Abs Immat Gran (auto) 0.01 (0.00-0.03) 10^3/uL Imm/Tot Granulo (auto) 0.1 (0.0-0.5) % Sodium 141 (136-145) mmol/L Potassium 3.9 (3.5-5.1) mmol/L Chloride 107 (98-107) mmol/L Carbon Dioxide 28.4 (21.0-32.0) mmol/L Anion Gap 9.5 BUN 19.0 H (7.0-18.0) mg/dL Creatinine 1.40 H (0.70-1.30) mg/dL Est GFR ( Amer) >60 (>=60 mL/min/1.73m^2) Est GFR (Non-Af Amer) 52 L (>=60 mL/min/1.73m^2) BUN/Creatinine Ratio 13.6 Glucose 110 H (74-106) mg/dL Calcium 8.7 (8.5-10.1) mg/dL Urine Color Lt. yellow (YELLOW) Urine Clarity Clear (CLEAR) Urine pH 6.0 (5.0-9.0) Ur Specific [place] 1.025 (1.005-1.025) Urine Protein Negative (NEG/TRACE) mg/dL Urine Glucose (UA) Negative (NEGATIVE) mg/dL Urine Ketones Negative (NEGATIVE) mg/dL Urine Occult Blood Moderate A (NEGATIVE) Urine Nitrite Negative (NEGATIVE) Urine Bilirubin Negative (NEGATIVE) Urine Urobilinogen 0.2 (0.2-1.0) EU/dL Ur Leukocyte Esterase Negative (NEGATIVE) Urine RBC 2-5 A (0-2) #/HPF Urine WBC 0-2 A (NONE SEEN) #/HPF Ur Squamous Epith Cells Rare (NONE/RARE) #/LPF Urine Crystals None seen (None Seen) #/HPF Urine Bacteria Trace A (NONE SEEN) #/HPF Urine Casts None seen (NONE SEEN) #/LPF Urine Mucus None seen (NONE SEEN) Ur Culture Indicated? No Imaging Data CT scan - abdomen: Radiologist's impression: ITS Impressions Abdomen/Pelvis CT 10/05/24 16:41 IMPRESSION: Interval distal migration of the obstructing 6 mm stone which is now situated in the UVJ. Persistent mild right hydronephrosis. Electronically authenticated by: MAKSIM WELLS Date: 10/05/2024 17:58 Discharge Plan Discharge Chief Complaint: Urogenital-Male Clinical Impression: Kidney stone Patient Disposition: Home, Self-Care Time of Disposition Decision: 18:08 Condition: Good Mode of Transportation: Private Vehicle Prescriptions / Home Meds: No Action meloxicam 15 mg tablet 15 mg PO DAILY oxycodone-acetaminophen [Percocet] 5-325 mg tablet 1 tab PO Q8H tamsulosin [Flomax] 0.4 mg capsule 0.4 mg PO DAILY docusate sodium [Colace] 100 mg capsule 100 mg PO BID Print Language: [place] Instructions: Kidney Stones (ED) Referrals: ANIKET SANTIAGO [Primary Care Provider] - 1 week
--- NOTE | 2024-10-05 16:59 | PC.NURSE ---
Known kidney stone, started last night with pain to low right back.
[2024-10-05 17:01] LABS: Basophils Percent Auto 0.5 % (0.2-2.0); Eosinophils Absolute Auto 0.2 10^3/uL (0.0-0.7); Eosinophils Percent Auto 2.2 % (0.9-7.0); Hematocrit 39.7 % (42.0-54.0); Hemoglobin 13.1 g/dL (14.0-18.0); Immature Granulocytes Abs Auto 0.01 10^3/uL (0.00-0.03); Immature Granulocytes Pct Auto 0.1 % (0.0-0.5); Lymphocytes Absolute Auto 2.3 10^3/uL (1.2-3.8); Lymphocytes Percent Auto 30.4 % (20.5-60.0); Mean Corpuscular Hemoglobin 31.6 pg (25.9-34.0); Mean Corpuscular Volume 95.7 fL (80.0-94.0); Mean Platelet Volume 9.6 fL (9.5-13.5); Monocytes Absolute Auto 0.6 10^3/uL (0.3-0.8); Monocytes Percent Auto 8.3 % (1.7-12.0); Neutrophils Absolute Auto 4.4 10^3/uL (1.4-6.5); Neutrophils Percent Auto 58.5 % (43.0-75.0); Platelet Count 263 10^3/uL (150-450); Red Blood Count 4.15 10^6/uL (4.70-6.10); Red Cell Distribution Width 12.5 % (11.0-15.0); White Blood Count 7.6 10^3/uL (4.0-11.0)
[2024-10-05 17:10] LABS: Anion Gap 9.5; BUN Creatinine Ratio 13.6; Calcium 8.7 mg/dL (8.5-10.1); Carbon Dioxide 28.4 mmol/L (21.0-32.0); Chloride 107 mmol/L (98-107); Estimated GFR (African America >60 (>=60 mL/min/1.73m^2); Estimated GFR (Non-African Ame 52 (>=60 mL/min/1.73m^2); Glucose 110 mg/dL (74-106); Potassium 3.9 mmol/L (3.5-5.1); Sodium 141 mmol/L (136-145)
[2024-10-05 17:37] LABS: Bilirubin Urine NEGATIVE (NEGATIVE); Blood Urine MODERATE (NEGATIVE); Clarity Urine CLEAR (CLEAR); Color Urine LT. YELLOW (YELLOW); Glucose Urine UA NEGATIVE (NEGATIVE); Ketones Urine NEGATIVE (NEGATIVE); Leukocyte Esterase Urine NEGATIVE (NEGATIVE); Nitrite Urine NEGATIVE (NEGATIVE); Protein Urine NEGATIVE (NEG/TRACE); Specific Gravity Urine 1.025 (1.005-1.025); Urobilinogen Urine 0.2 EU/dL (0.2-1.0)
[2024-10-05 17:46] LABS: Bacteria Urine TRACE #/HPF (NONE SEEN); Crystals Seen? None Seen #/HPF (None Seen); Mucus Urine NONE SEEN (NONE SEEN); Squamous Epithelial Cell Urine RARE #/LPF (NONE/RARE); WBC Urine 0-2 #/HPF (NONE SEEN)
[2024-10-05 17:47] LABS: Cast Seen? NONE SEEN #/LPF (NONE SEEN); Urine Culture Indicated NO
== END 2024-10-05 18:16 | disposition home or self-care (01) ==
PROVIDERS: Emergency Provider Emergency Medicine; Family Provider Family Medicine; PCP Nurse Practitioner Family
DX: N13.2 Hydronephrosis with renal and ureteral calculous obstruction (principal)
CPT/HCPCS: 36415; 74176; 80048; 81001; 85025; 99285